=== PATIENT | male | born 1960 | race Two or more races ===

== ENCOUNTER 2023-05-17 20:08 | Inpatient (IN) | payer MEDICAID, OTHER ==
[~2023-05-17] VITALS: Ht 177.8 cm; Wt 97.1 kg
[2023-05-17 23:34] LABS: Basophils # (auto) 0 10 ^3/uL (0-0.2); Basophils % (auto) 0.2 % (0.0-2.0); Eosinophils # (auto) 0 10 ^3/uL (0-0.8); Eosinophils % (auto) 0.2 % (0.0-7.0); Hematocrit 46.8 % (41.0-53.0); Hemoglobin 15.4 g/dL (13.5-17.5); Lymphocytes # (auto) 1.6 10 ^3/uL (0.4-5.4); Lymphocytes % (auto) 11.4 % (10.0-50.0); Mean Corpuscular Hemoglobin 32.4 pg (28.0-32.0); Mean Corpuscular Hgb Conc. 32.9 g/dL (32.0-36.0); Mean Corpuscular Volume 98.4 fL (80.0-100.0); Monocytes # (auto) 0.5 10 ^3/uL (0-1.3); Monocytes % (auto) 3.7 % (0.0-12.0); Neutrophils # (auto) 12.1 10 ^3/uL (1.6-8.6); Neutrophils % (auto) 84.5 % (37.0-80.0); Red Blood Cells 4.75 10^6/uL (4.5-5.90); Red Cell Distribution Width 13.4 % (11.8-14.3); White Blood Cell 14.4 10^3/uL (4.4-10.8)
[2023-05-17 23:42] LABS: Alanine Aminotransferase 24 U/L (7-40); Albumin 4.7 g/dL (3.2-4.8); Alkaline Phosphatase 81 U/L (46-116); Anion Gap 7 (5-15); Aspartate Aminotransferase 25 U/L (13-40); BUN/Creatinine Ratio 11.2 (10.0-20.0); Bilirubin, Total 0.4 mg/dL (0.2-1.0); Blood Urea Nitrogen 13 mg/dL (9-23); Carbon Dioxide 25 mmol/L (20-30); Chloride 105 mmol/L (98-107); Glucose 151 mg/dL (74-106); Potassium 4.7 mmol/L (3.5-5.1); Sodium 137 mmol/L (136-145); Total Protein 7.6 g/dL (5.7-8.2)
[2023-05-18] VITALS (7 sets, daily range): BP systolic 125–139; BP diastolic 83–92; PULSE 55–71; RESP 14–20; TEMP 97.7–98.5; O2SAT 93–97
[2023-05-18 01:49] LABS: Blood Alcohol < 3.0 mg/dL (<10)
[2023-05-18] MEDS: PIPERACILLIN-TAZOB 3.375GM 100 ML IV ONE (02:52)
[2023-05-18] MEDS ORDERED: ONDANSETRON HCL 4 MG/2 ML VIAL IV PRN (03:00)
[2023-05-18] MEDS ORDERED: MORPHINE SULFATE INJ 2 MG/ml SYRG IV PRN ×2 (03:00→04:45)
[2023-05-18] MEDS ORDERED: ACETAMINOPHEN 325 MG TAB PO PRN (03:00)
[2023-05-18] MEDS ORDERED: DOCUSATE SOD 100 MG CAP PO PRN (03:00)
[2023-05-18] MEDS: SODIUM CHLORIDE 0.9% 1,000 ML IV SCH (03:14)
[2023-05-18 03:29] LABS: Urine Bacteria NONE SEEN /hpf (None Seen); Urine Blood 1+ /uL (Negative); Urine Clarity Clear (Clear); Urine Color Yellow (Yellow); Urine Mucus FEW (None Seen); Urine Protein, UAD TRACE (Negative); Urine Specific Gravity 1.026 (1.001-1.035); Urine Urobilinogen Normal (Negative); Urine WBC 3 /hpf (0 - 3); Urine pH 5.5 (5.0-8.0)
[2023-05-18 03:32] LABS: Amphetamine Screen, Urine Neg (NEGATIVE); Barbiturate Scree,Urine Neg (NEGATIVE); Benzodiazephine Screen, Urine Neg (NEGATIVE)
[2023-05-18 03:33] LABS: Cannabinoid Screen, Urine Neg (NEGATIVE); Cocaine Screen, Urine Neg (NEGATIVE); Opiate Scree,Urine Neg (NEGATIVE); Phencyclidine Screen, Urine Neg (NEGATIVE)
[2023-05-18 03:35] LABS: Alanine Aminotransferase 24 U/L (7-40); Albumin 4.6 g/dL (3.2-4.8); Alkaline Phosphatase 78 U/L (46-116); Anion Gap 6 (5-15); Aspartate Aminotransferase 24 U/L (13-40); BUN/Creatinine Ratio 10.2 (10.0-20.0); Blood Urea Nitrogen 11 mg/dL (9-23); Calcium 9.7 mg/dL (8.7-10.4); Carbon Dioxide 25 mmol/L (20-30); Chloride 107 mmol/L (98-107); Glucose 91 mg/dL (74-106); Potassium 4.4 mmol/L (3.5-5.1); Sodium 138 mmol/L (136-145)
[2023-05-18 03:36] LABS: Bilirubin, Total 0.5 mg/dL (0.2-1.0); Total Protein 7.5 g/dL (5.7-8.2)
[2023-05-18 03:37] LABS: Basophils # (auto) 0.1 10 ^3/uL (0-0.2); Basophils % (auto) 0.9 % (0.0-2.0); Eosinophils # (auto) 0.2 10 ^3/uL (0-0.8); Eosinophils % (auto) 1.7 % (0.0-7.0); Hematocrit 42.7 % (41.0-53.0); Hemoglobin 14.1 g/dL (13.5-17.5); Lymphocytes # (auto) 2.4 10 ^3/uL (0.4-5.4); Lymphocytes % (auto) 20.2 % (10.0-50.0); Mean Corpuscular Hemoglobin 32.7 pg (28.0-32.0); Mean Corpuscular Hgb Conc. 32.9 g/dL (32.0-36.0); Mean Corpuscular Volume 99.4 fL (80.0-100.0); Monocytes # (auto) 0.7 10 ^3/uL (0-1.3); Monocytes % (auto) 6.1 % (0.0-12.0); Neutrophils # (auto) 8.3 10 ^3/uL (1.6-8.6); Neutrophils % (auto) 71.1 % (37.0-80.0); Nucleated Red Blood Cells % 0.1 %; Red Cell Distribution Width 13.5 % (11.8-14.3); White Blood Cell 11.7 10^3/uL (4.4-10.8)
[2023-05-18] MEDS ORDERED: NITROGLYCERIN 0.4 MG SL TAB SL PRN (04:45)
[2023-05-18] MEDS: PIPERACILLIN-TAZOB 3.375GM 100 ML IV SCH (12:08)
[2023-05-18] MEDS: PNEUMOCOCCAL VACC POLYS 25 MCG/0.5 ML VIAL IM ONE (13:15)
[2023-05-18] MEDS: HYDROcodone-ACET 5/325MG TAB PO PRN (13:59)
[2023-05-18] MEDS: INFLUENZA QUAD 2023-2024 0.5 ML SYRG IM ONE (15:15)
[2023-05-19] VITALS (7 sets, daily range): BP systolic 116–145; BP diastolic 78–89; PULSE 58–74; RESP 14–19; TEMP 97.3–98.9; O2SAT 92–96
[2023-05-19 06:50] LABS: Basophils # (auto) 0 10 ^3/uL (0-0.2); Basophils % (auto) 0.4 % (0.0-2.0); Eosinophils # (auto) 0.2 10 ^3/uL (0-0.8); Eosinophils % (auto) 2.5 % (0.0-7.0); Hematocrit 40.7 % (41.0-53.0); Hemoglobin 13.9 g/dL (13.5-17.5); Lymphocytes # (auto) 3.3 10 ^3/uL (0.4-5.4); Lymphocytes % (auto) 40.3 % (10.0-50.0); Mean Corpuscular Hemoglobin 33.4 pg (28.0-32.0); Mean Corpuscular Hgb Conc. 34.1 g/dL (32.0-36.0); Mean Corpuscular Volume 97.8 fL (80.0-100.0); Monocytes # (auto) 0.8 10 ^3/uL (0-1.3); Monocytes % (auto) 9.8 % (0.0-12.0); Neutrophils # (auto) 3.9 10 ^3/uL (1.6-8.6); Red Blood Cells 4.16 10^6/uL (4.5-5.90); Red Cell Distribution Width 13.1 % (11.8-14.3); White Blood Cell 8.3 10^3/uL (4.4-10.8)
[2023-05-19 07:05] LABS: Alanine Aminotransferase 22 U/L (7-40); Albumin 3.9 g/dL (3.2-4.8); Alkaline Phosphatase 63 U/L (46-116); Anion Gap 6 (5-15); Aspartate Aminotransferase 16 U/L (13-40); BUN/Creatinine Ratio 12.1 (10.0-20.0); Blood Urea Nitrogen 13 mg/dL (9-23); Calcium 8.9 mg/dL (8.7-10.4); Carbon Dioxide 26 mmol/L (20-30); Chloride 107 mmol/L (98-107); Potassium 4.2 mmol/L (3.5-5.1); Sodium 139 mmol/L (136-145)
[2023-05-19 07:06] LABS: Bilirubin, Total 0.5 mg/dL (0.2-1.0); Total Protein 6.4 g/dL (5.7-8.2)
[2023-05-19 07:08] LABS: Glucose 87 mg/dL (74-106)
[2023-05-20 05:00] VITALS: BP 121/84; PULSE 64; RESP 16; TEMP 98.3; O2SAT 94
[2023-05-20 08:00] VITALS: PULSE 60; RESP 16; O2SAT 96
[2023-05-20 08:39] VITALS: BP 118/77; PULSE 68; RESP 18; TEMP 98.9; O2SAT 100
[2023-05-20 09:17] LABS: Hepatitis B Surface Antibody Negative (Negative)
[2023-05-20 09:27] LABS: Hepatitis B Surface Antigen Negative (Negative)
[2023-05-20 09:48] LABS: Hepatitis B Core IgM Negative; Hepatitis C Antibody Negative (Negative)
[2023-05-20] MEDS ORDERED: AUG875T PO (11:21)
[2023-05-20] MEDS ORDERED: DOCU-265 PO (11:23)
[2023-05-20] MEDS ORDERED: HYDR-4902 PO (11:23)
[2023-05-20 12:51] VITALS: BP 126/75; PULSE 61; RESP 17; TEMP 98.1; O2SAT 95
[2023-05-22] MEDS ORDERED: ASPI1TAB20 PO (10:57)
[2023-05-22] MEDS ORDERED: ATO40T PO (10:57)
== END 2023-05-20 15:55 | disposition home or self-care (01) | DRG 501 ==
LOC: EDBD 20:08 → ER 20:08 → TELE 05-18 04:45 → TELE-EAST 05-18 13:02 → TELE-WESTW 05-19 18:13
PROVIDERS: ADMIT Nurse Practitioner Family; ATTEND Internal Medicine
DX: N45.2 Orchitis (principal); I69.351 Hemiplegia and hemiparesis following cerebral infarction affecting right dominant side; I69.398 Other sequelae of cerebral infarction; N43.3 Hydrocele, unspecified; R73.9 Hyperglycemia, unspecified; R20.2 Paresthesia of skin
CPT/HCPCS: 36415; 80053; 80307; 80320; 81001; 83605; 83735; 84484; 85025; 86705; 86706; 86803; 87040; 87340; 93005; 96365; G0378; J2543

== ENCOUNTER 2023-08-24 18:20 | Emergency (ER) | payer MEDICAID ==
[~2023-08-24] VITALS: Ht 177.8 cm; Wt 91.0 kg
[~2023-08-24 18:20] MED LIST: ASPI1TAB20 PO; ATOR-507 PO; AUG875T PO; DOCU-265 PO; HYDR-4902 PO
[2023-08-24 19:35] VITALS: PULSE 74; RESP 12; O2SAT 95
[2023-08-24 19:37] LABS: Basophils # (auto) 0 10 ^3/uL (0-0.2); Basophils % (auto) 0.3 % (0.0-2.0); Eosinophils # (auto) 0.1 10 ^3/uL (0-0.8); Eosinophils % (auto) 1.4 % (0.0-7.0); Hematocrit 46.3 % (41.0-53.0); Hemoglobin 15.7 g/dL (13.5-17.5); Lymphocytes # (auto) 3.7 10 ^3/uL (0.4-5.4); Lymphocytes % (auto) 43.5 % (10.0-50.0); Mean Corpuscular Hemoglobin 33.6 pg (28.0-32.0); Mean Corpuscular Hgb Conc. 33.9 g/dL (32.0-36.0); Mean Corpuscular Volume 99.3 fL (80.0-100.0); Monocytes # (auto) 0.7 10 ^3/uL (0-1.3); Monocytes % (auto) 8.3 % (0.0-12.0); Neutrophils # (auto) 3.9 10 ^3/uL (1.6-8.6); Neutrophils % (auto) 46.5 % (37.0-80.0); Nucleated Red Blood Cells % 0.6 %; Red Blood Cells 4.67 10^6/uL (4.5-5.90); Red Cell Distribution Width 14.5 % (11.8-14.3); White Blood Cell 8.5 10^3/uL (4.4-10.8)
[2023-08-24 19:46] LABS: Chloride 107 mmol/L (98-107); Potassium 4.3 mmol/L (3.5-5.1); Sodium 140 mmol/L (136-145)
[2023-08-24 19:47] LABS: Anion Gap 10 (5-15); Carbon Dioxide 23 mmol/L (20-30)
[2023-08-24 19:48] LABS: Calcium 9.5 mg/dL (8.7-10.4)
[2023-08-24 19:52] LABS: BUN/Creatinine Ratio 14.5 (10.0-20.0); Blood Urea Nitrogen 16 mg/dL (9-23); Glucose 88 mg/dL (74-106)
[2023-08-24 22:00] VITALS: BP 118/87; PULSE 62; RESP 15; TEMP 97.5; O2SAT 96
== END 2023-08-24 22:28 | disposition home or self-care (01) ==
LOC: ER 18:20 → EDBD 18:20 → ER 22:28
DX: F10.129 Alcohol abuse with intoxication, unspecified (principal); Z79.899 Other long term (current) drug therapy; Y90.0 Blood alcohol level of less than 20 mg/100 ml
CPT/HCPCS: 36415; 70450; 71045; 72125; 80048; 80320; 85025

== ENCOUNTER 2024-10-19 12:10 | Inpatient (IN) | payer MEDICAID ==
[~2024-10-19] VITALS: Ht 177.8 cm; Wt 95.0 kg
--- NOTE | 2024-10-19 12:31 | ED.PDOC ---
HPI Comments 63 y.o male with PMHx of MT x2, CVA x2, thyroid disease, HLD, HTN, DM, and neuropathy, presents to the ED via EMS for a chief complaint of substernal chest pain associated with SOB and nausea that started this morning. EMS reports initially, patient's roommate reported that patient has been complaining of this pain for the past week but has not been to the hospital for this episode recently. Patient reports pain is constant, states "feels like my heart is going to explode", is non radiating and rating a 10/10 on the pain scale. EMS gave 324mg ASA and 0.4mg NTG x 2 en route but patient had no relief and remains a 10/10. Patient admits to heavy ETOH use and has been drinking today at home. He denies any vomiting, diarrhea or leg swelling. Time Seen by MD: 12:13 Reviewed Notes: Nurses Notes, Biofuels Production Associate Notes, Medications, Allergies Allergies: Coded Allergies: NO KNOWN ALLERGIES (Unverified , 05/17/23) Home Meds Active Scripts Atorvastatin Calcium (Lipitor) 40 Mg Tab, 1 TAB PO QPM, #90 TAB 1 Refill Prov:CHAYO RICHARDS MD 05/22/23 Aspirin (Aspir-81) 81 Mg Tab, 1 TAB PO DAILY, #30 TAB 5 Refills Prov:CHAYO RICHARDS MD 05/22/23 Docusate Sodium (Docusate Sodium) 100 Mg Cap, 100 MG PO BIDPRN PRN, #60 CAP Prov:CHAYO RICHARDS MD 05/20/23 Hydrocodone-Acetaminophen (Hydrocodone Bitartrate/AC 5-325 mg) 1 Tab Tab, 1 TAB PO Q4HP PRN, #20 TAB Prov:CHAYO RICHARDS MD 05/20/23 Amoxicillin & Pot Clavulanate (AUGMENTIN TABLET) 875 Mg Tb, 875 MG PO BID, #20 TAB Prov:CHAYO RICHARDS MD 05/20/23 Information Source: Patient, Emergency Med Personnel Mode of Arrival: EMS Severity: Moderate Timing: Hours Duration: Since onset Prehospital treatment: 12 Lead EKG, ASA (324mg ), Bread Distributor, NTG (0.4mg x 2 ) Location: Substernal Radiation: No Radiation Quality: Sharp Onset: At Rest Cardiac Risk Factors: Hyperlipidemia, HTN, Diabetes PE Risk Factors: None History of: Similar pain in past, MT Modifying Factors: Nothing Associated Signs and Symptoms: SOB, N/V (nausea with no vomiting ) Past Medical History PAST MEDICAL HISTORY: CVA (2), High Lipids, HTN, [place] (2), Thyroid Past Medical History (Other): neuropathy Surgical History: Denies all surgeries Family History Family History: Unknown Social History Smoker: Non-Smoker Alcohol: Heavy Drugs: Denies Drug Use Lives In: Home Constitutional: denies: chills, diaphoresis, fatigue, fever, malaise, sweats, weakness, others EENTM: denies: blurred vision, double vision, ear bleeding, ear discharge, ear drainage, ear pain, ear ringing, eye pain, eye redness, hearing loss, mouth pain, mouth swelling, nasal discharge, nose bleeding, nose congestion, nose pain, photophobia, tearing, throat pain, throat swelling, voice changes, others Respiratory: reports: SOB at rest, shortness of breath, SOB with excertion; denies: cough, hemoptysis, orthopnea, stridor, wheezing, others Cardiovascular: reports: chest pain; denies: dizzy spells, diaphoresis, Dyspnea on exertion, edema, irregular heart beat, left arm pain, lightheadedness, palpitations, PND, syncope, others Gastrointestinal: reports: nausea; denies: abdomen distended, abdominal pain, blood streaked bowels, constipated, diarrhea, dysphagia, difficulty swallowing, hematemesis, melena, poor appetite, poor fluid intake, rectal bleeding, rectal pain, vomiting, others Genitourinary: denies: burning, dysuria, flank pain, frequency, hematuria, incontinence, penile discharge, penile sore, pain, testicle pain, testicle swelling, urgency, others Neurological: denies: dizziness, fainting, headache, left sided numbness, left sided weakness, numbness, paresthesia, pre-existing deficit, right sided numbness, right sided weakness, seizure, speech problems, tingling, tremors, weakness, others Musculoskeletal: denies: back pain, gout, joint pain, joint swelling, muscle pain, muscle stiffness, neck pain, others Integumetry: denies: bruises, change in color, change in hair/nails, dryness, laceration, lesions, lumps, rash, wounds, others Allergic/Immunocompromised: denies: Difficulty Healing, Frequent Infections, Hives, Itching, others Hematologic/Lymphatic: denies: anemia, blood clots, easy bleeding, easy bruising, swollen glands, others Endocrine: denies: excessive hunger, excessive sweating, excessive thirst, excessive urination, flushing, intolerance to cold, intolerance to heat, unexplained weight gain, unexplained weight loss, others Psychiatric: denies: anxiety, bipolar disorder, depression, hopeless, panic disorder, schizophrenia, sleepless, suicidal, others All Other Systems: Reviewed and Negative Physical Exam General Appearance: Moderate Distress HEENT: Normal ENT Inspection, Pharynx Normal, TMs Normal Neck: Full Range of Motion, Non-Tender, Normal, Normal Inspection Respiratory: Chest Non-Tender, Lungs Clear, No Accessory Muscle Use, No Respiratory Distress, Normal Breath Sounds Cardiovascular: No Edema, No JVD, No Murmur, No Gallop, Normal Peripheral Pulses, Regular Rate/Rhythm Breast Exam: Deferred Gastrointestinal: No Organomegaly, Non Tender, No Pulsatile Mass, Normal Bowel Sounds, Soft Genitalia: Deferred Pelvic: Deferred Rectal: Deferred Extremities: No calf tenderness, Normal capillary refill, Normal inspection, Normal range of motion, Non-tender, No pedal edema Musculoskeletal : Apperance: Normal Neurologic: Alert, french weaver II-XII nml as Tested, Motor Weakness, Normal Affect, Normal Mood, No Sensory Deficits Cerebellar Function: Normal Reflexes: Normal Skin: Dry, Normal Color, Warm Lymphatic: No Adenopathy EKG EKG : Pulse Rate (adult): 83 Cardiac Rhythm: NSR Block: RBBB Was a procedure done? Was a procedure done?: No CP Differential Dx Differential Diagnosis: Digoxin Toxicity, Electrolyte Disorder Differential Diagnosis: Angina, Chest Wall Pain, Costochondritis, Myocardial Infarction, Pericarditis, Pneumonia X-Ray, Labs, Meds, VS Vital Signs Date Time Temp Pulse Resp B/P (MAP) Pulse Ox O2 Delivery O2 Flow Rate FiO2 10/19/24 13:14 66 10/19/24 12:42 68 21 97 Nasal Cannula* 2 28 10/19/24 12:42 98.5 68 21 129/90 (103) 97 98.5 10/19/24 12:31 83 10/19/24 12:26 86 10/19/24 12:15 98.5 70 19 133/86 (102) 94 98.5 10/19/24 12:11 83 Lab Test 10/19/24 13:31 10/19/24 12:28 Range/Units Troponin I High Sensitivity Pending < 3 L </=54 ng/L White Blood Count 8.0 4.4-10.8 10^3/uL Red Blood Count 4.21 L 4.5-5.90 10^6/uL Hemoglobin 14.6 13.5-17.5 g/dL Hematocrit 41.2 41.0-53.0 % Mean Corpuscular Volume 98.0 80.0-100.0 fL Mean Corpuscular Hemoglobin 34.6 H 28.0-32.0 pg Mean Corpuscular Hemoglobin Concent 35.3 32.0-36.0 g/dL Red Cell Distribution Width 14.6 H 11.8-14.3 % Platelet Count 256 140-450 10^3/uL Mean Platelet Volume 8.3 6.9-10.8 fL Neutrophils (%) (Auto) 62.7 37.0-80.0 % Lymphocytes (%) (Auto) 30.5 10.0-50.0 % Monocytes (%) (Auto) 5.9 0.0-12.0 % Eosinophils (%) (Auto) 0.4 0.0-7.0 % Basophils (%) (Auto) 0.5 0.0-2.0 % Neutrophils # (Auto) 5.0 1.6-8.6 10 ^3/uL Lymphocytes # (Auto) 2.4 0.4-5.4 10 ^3/uL Monocytes # (Auto) 0.5 0-1.3 10 ^3/uL Eosinophils # (Auto) 0 0-0.8 10 ^3/uL Basophils # (Auto) 0 0-0.2 10 ^3/uL Nucleated Red Blood Cells 0.1 % Sodium Level 141 136-145 mmol/L Potassium Level 3.6 3.5-5.1 mmol/L Chloride Level 104 98-107 mmol/L Carbon Dioxide Level 21 20-31 mmol/L Anion Gap 16 H 5-15 Blood Urea Nitrogen 16 9-23 mg/dL Creatinine 0.85 0.700-1.30 mg/dL Glomerular Filtration Rate Calc 98 >90 mL/min BUN/Creatinine Ratio 18.8 10.0-20.0 Serum Glucose 103 74-106 mg/dL Calcium Level 9.7 8.7-10.4 mg/dL Plasma/Serum Blood Alcohol 94.9 H <10 mg/dL EXAM: XY CHEST PORTABLE IMPRESSION: No acute cardiopulmonary disease. Hep-Lock was established. The patient's alcohol level is 94.9 The troponin level is negative The CBC and chemistry panel are within normal limits. The patient is still having persistent chest pain The patient is being admitted at this time Images Reviewed?: Images reviewed and evaluated by me Time of 1ST Reevaluation: 12:22 Reevaluation 1ST: Unchanged Patient Education/Counseling: Diagnosis, Treatment, Prognosis Family Education/Counseling: No Family Present SEPSIS Sepsis Screen Physician Orders Electrocardigram (10/19/24 13:15) Electrocardigram (10/19/24 15:15) Chest Portable (10/19/24 12:20) Heplock Iv (10/19/24 12:20) Bread Distributor (10/19/24 12:20) Blood Pressure (10/19/24 12:20) Pulse Oximetry (10/19/24 12:20) Urinalysis (10/19/24 12:20) Drug Screen (10/19/24 12:20) Troponin-I Hs (10/19/24 13:20) Troponin-I Hs (10/19/24 15:20) Vital Signs Date Time Temp Pulse Resp B/P (MAP) Pulse Ox O2 Delivery O2 Flow Rate FiO2 10/19/24 13:14 66 10/19/24 12:42 68 21 97 Nasal Cannula* 2 28 10/19/24 12:42 98.5 68 21 129/90 (103) 97 98.5 10/19/24 12:31 83 10/19/24 12:26 86 10/19/24 12:15 98.5 70 19 133/86 (102) 94 98.5 10/19/24 12:11 83 Laboratory Tests Test 10/19/24 12:28 White Blood Count 8.0 10^3/uL (4.4-10.8) Departure 1 Departure Time of Disposition: 14:03 Impression: Primary Impression: Acute chest pain Additional Impression: Alcohol intoxication Qualified Codes: F10.920 - Alcohol use, unspecified with intoxication, uncomplicated Disposition: 09 ADMITTED INPATIENT Admit to: Tele Condition: Fair Critical Care Note Critical Care Time?: No Stability Stability form required: Yes Unstable for transfer: Telemetry monitoring (Telemetry monitoring required), ED Physician Assesment (Clinical assesment) Heart Score Heart Score: Heart Score Response (Comments) Value History Moderate Suspicious 1 EKG Repolarization Disturb 1 Age 45-64 1 Risk Factors >3 or Hx ASHD 2 Troponin Normal limit 0 Total 5 I personally scribed for ANDREA CHIU MD ([email or web address]) on 10/19/24 at 12:31. Electronically submitted by Keiko Connelly (Conductor). I personally scribed for ANDREA CHIU MD ([email or web address]) on 10/19/24 at 13:34. Electronically submitted by Keiko Connelly (Conductor). ANDREA CHIU MD Oct 19, 2024 12:31
[2024-10-19 12:42] VITALS: PULSE 68; RESP 21; O2SAT 97
[2024-10-19 12:53] LABS: Hematocrit 41.2 % (41.0-53.0); Hemoglobin 14.6 g/dL (13.5-17.5); Mean Corpuscular Hemoglobin 34.6 pg (28.0-32.0); Mean Corpuscular Volume 98.0 fL (80.0-100.0); Nucleated Red Blood Cells % 0.1 %
[2024-10-19 13:00] LABS: Chloride 104 mmol/L (98-107); Potassium 3.6 mmol/L (3.5-5.1); Sodium 141 mmol/L (136-145)
[2024-10-19 13:01] LABS: Anion Gap 16 (5-15); Carbon Dioxide 21 mmol/L (20-31)
[2024-10-19 13:02] LABS: Calcium 9.7 mg/dL (8.7-10.4)
--- NOTE | 2024-10-19 13:02 | DVH ---
EXAM: XY CHEST PORTABLE Indication: CP Technique: Single frontal view of the chest was obtained Comparison: XY CHEST PORTABLE on DOS: 08/24/23 FINDINGS: Lines and Tubes: None Lungs: No focal consolidation. Pleura: No effusion. No pneumothorax. Cardiomediastinal contours: Unremarkable Bones: No acute osseous abnormality. IMPRESSION: No acute cardiopulmonary disease.
[2024-10-19 13:06] LABS: BUN/Creatinine Ratio 18.8 (10.0-20.0); Blood Urea Nitrogen 16 mg/dL (9-23); Glucose 103 mg/dL (74-106)
--- NOTE | 2024-10-19 13:08 | ECG ---
[facility] Test Date: 2024-10-19 Test Time: 12:11:45 Pat Name: LOCO HERNÁNDEZ Department: ER Room: [address] [place] [address] Gender: M Talent Assistant: ALINA : 1960 Requested By: ANDREA CHIU Order Number: [id number] Reading MD: Mehrdad Pillai Measurements Intervals [place] Rate: 83 P: 37 PA: 167 QRS: 74 QRSD: 148 T: -15 QT: 419 QTc: 493 Interpretive Statements Sinus rhythm Right bundle branch block Electronically Signed On 10-19-2024 19:37:25 PDT by Mehrdad Pillai Please click the below link to view image of tracing.
[2024-10-19 14:35] LABS: Urine Protein, UAD 1+ (Negative)
[2024-10-19 15:04] LABS: Amphetamine Screen, Urine Neg (NEGATIVE); Barbiturate Scree,Urine Neg (NEGATIVE); Benzodiazephine Screen, Urine Neg (NEGATIVE); Cannabinoid Screen, Urine Neg (NEGATIVE); Cocaine Screen, Urine Neg (NEGATIVE); Opiate Scree,Urine Neg (NEGATIVE); Phencyclidine Screen, Urine Neg (NEGATIVE)
[2024-10-19] MEDS ORDERED: ONDANSETRON HCL 4 MG/2 ML VIAL IV PRN (15:30)
[2024-10-19] MEDS ORDERED: DOCUSATE SOD 100 MG CAP PO PRN (15:30)
--- NOTE | 2024-10-19 16:11 | DVHHP2 ---
History of Present Illness Reason for Visit: Acute chest pain History of Present Illness The patient is a 63-year-old male morbidly obese with past medical history of CVA, hypertension, neuropathy, hyperlipidemia, thyroid disease, and [place] who presented to [facility] ED with complaint of chest pain. Patient reports symptoms progressively get worse with substernal chest pain, associated with nausea, shortness of breaths, getting worse that prompted this visit. Patient was seen and evaluated in the ED, laboratory data shows WBC 8.0, platelets 256, sodium 141, potassium 3.6, BUN 16, creatinine 0.85, glucose 103, calcium 9.7, troponin < 3, alcohol level 94.9, blood pressure 137/94, heart rate 66, temperature 97.6 F, O2 saturation 97% on oxygen. Chest x-ray show no acute cardiopulmonary disease. Please see medication orders section in the computer. On my assessment, patient denied chest pain at this moment, no headache, no dizziness, no diaphoresis, no shortness of breath, no nausea, no vomiting, no fever, no chills. Patient was admitted for further evaluation and medical ma nagement. Past Medical History CVA (2), High Lipids, HTN, [place] (2), Thyroid, Neuropathy Past Surgical History Denies all surgeries Family History Reviewed, noncontributory to the management of this case. Past Social History The patient lives at home, denies smoking, alcohol or illicit drugs abuse. Review of Systems Constitutional: No: Fever, Chills, Sweats, Weakness, Malaise, Other Eyes: No: Pain, Vision change, Conjunctivae inflammation, Eyelid inflammation, Other, Redness ENT: No: Ear pain, Ear discharge, Nose pain, Nose discharge, Nose congestion, Mouth pain, Mouth swelling, Throat pain, Throat swelling, Other Respiratory: Shortness of breath, SOB with excertion, Other (SOB at rest); No: Cough, Dry, Wheezing, Hemoptysis, Pleuritic Pain, Sputum, Wheezing Cardiovascular: Chest Pain; No: Palpitations, Orthopnea, Paroxysmal Noc. Dyspnea, Edema, Lt Headedness, Other Gastrointestinal: Nausea; No: Vomiting, Abdominal Pain, Diarrhea, Constipation, Melena, Hematochezia, Other Genitourinary: No Dysuria, No Frequency, No Incontinence, No Hematuria, No Retention, No Other Musculoskeletal: No: other, neck pain, shoulder pain, arm pain, back pain, hand pain, leg pain, foot pain Skin: No: Rash, Lesions, Jaundice, Bruising, Other Neurological: No: Weakness, Numbness, Incoordination, Change in speech, Confusion, Seizures, Other Allergies: Coded Allergies: NO KNOWN ALLERGIES (Unverified , 05/17/23) Medications Current Medications Medications Dose Ordered Sig/Maria G Route Start Time Stop Time Status Last Admin Dose Admin Aspirin 81 mg DAILY PO 10/20/24 10:00 UNV Atorvastatin Calcium 40 mg HS PO 10/19/24 22:00 UNV Thiamine HCl 100 mg DAILY PO 10/20/24 10:00 UNV Folic Acid 1 mg DAILY PO 10/20/24 10:00 UNV Hydralazine HCl 10 mg Q6HP PRN IV 10/19/24 15:30 UNV Sodium Chloride 10 ml Q8HR IV 10/19/24 22:00 UNV Acetaminophen/ Hydrocodone Bitart 1 tab Q4HP PRN PO 10/19/24 15:30 UNV Ondansetron HCl 4 mg Q4HP PRN IV 10/19/24 15:30 UNV Docusate Sodium 100 mg BIDPRN PRN PO 10/19/24 15:30 UNV Multivitamins 1 tab DAILY PO 10/20/24 10:00 UNV Acetaminophen 650 mg Q6HP PRN PO 10/19/24 15:30 UNV Exam Vital Signs Vital Signs Date Time Temp Pulse Resp B/P (MAP) Pulse Ox O2 Delivery O2 Flow Rate FiO2 10/19/24 14:00 97.3 66 21 137/94 (108) 97 97.3 10/19/24 12:42 Nasal Cannula* 2 28 General Appearance: Alert, Oriented X3, Cooperative, No acute distress HEENT: Atraumatic, PERRLA, EOMI, Mucous membr. moist/pink Respiratory: Normal air movement Cardiovascular: Regular rate, Normal S1, Normal S2, No murmurs Abdominal: Normal bowel sounds, Soft, No tenderness, No hepatospenomegaly, No masses Extremities: No clubbing, No cyanosis, No edema, Normal pulses, No tende rness/swelling Skin: No rashes, No breakdown, No significant lesion Neuro: Normal gait, Normal speech, Strength at 5/5 X4 ext, Normal tone, Sensation intact, Cranial nerves 3-12 NL, Reflexes 2+ Psych/Mental Status: Mental status NL, Mood NL Labs/Xrays Labs Test 10/19/24 14:22 10/19/24 13:31 10/19/24 12:28 Range/Units Urine Color Yellow Yellow Urine Clarity Turbid H Clear Urine pH 6.0 5.0-9.0 Urine Specific [place] 1.030 1.001-1.035 Urine Protein 1+ H Negative Urine Ketones 1+ H Negative Urine Blood 1+ H Negative /uL Urine Nitrite Negative Negative Urine Bilirubin Negative Negative Urine Urobilinogen Normal Negative mg/dL Urine Leukocyte Esterase Negative Negative /uL Urine RBC 2 0 - 3 /hpf Urine Microscopic WBC 1 0-3 /HPF Urine Squamous Epithelial Cells Few <5 /hpf Urine Bacteria None seen None Seen /hpf Urine Mucus Few None Seen Urine Glucose Normal Normal mg/dL Urine Opiates Screen Neg NEGATIVE Urine Fentanyl Screen Neg NEGATIVE Urine Barbiturates Screen Neg NEGATIVE Urine Phencyclidine Screen Neg NEGATIVE Urine Amphetamines Screen Neg NEGATIVE Urine Benzodiazepines Screen Neg NEGATIVE Urine Cocaine Screen Neg NEGATIVE Urine Cannabinoids Screen Neg NEGATIVE Troponin I High Sensitivity < 3 L </=54 ng/L White Blood Count 8.0 4.4-10.8 10^3/uL Red Blood Count 4.21 L 4.5-5.90 10^6/uL Hemoglobin 14.6 13.5-17.5 g/dL Hematocrit 41.2 41.0-53.0 % Mean Corpuscular Volume 98.0 80.0-100.0 fL Mean Corpuscular Hemoglobin 34.6 H 28.0-32.0 pg Mean Corpuscular Hemoglobin Concent 35.3 32.0-36.0 g/dL Red Cell Distribution Width 14.6 H 11.8-14.3 % Platelet Count 256 140-450 10^3/uL Mean Platelet Volume 8.3 6.9-10.8 fL Neutrophils (%) (Auto) 62.7 37.0-80.0 % Lymphocytes (%) (Auto) 30.5 10.0-50.0 % Monocytes (%) (Auto) 5.9 0.0-12.0 % Eosinophils (%) (Auto) 0.4 0.0-7.0 % Basophils (%) (Auto) 0.5 0.0-2.0 % Neutrophils # (Auto) 5.0 1.6-8.6 10 ^3/uL Lymphocytes # (Auto) 2.4 0.4-5.4 10 ^3/uL Monocytes # (Auto) 0.5 0-1.3 10 ^3/uL Eosinophils # (Auto) 0 0-0.8 10 ^3/uL Basophils # (Auto) 0 0-0.2 10 ^3/uL Nucleated Red Blood Cells 0.1 % Sodium Level 141 136-145 mmol/L Potassium Level 3.6 3.5-5.1 mmol/L Chloride Level 104 98-107 mmol/L Carbon Dioxide Level 21 20-31 mmol/L Anion Gap 16 H 5-15 Blood Urea Nitrogen 16 9-23 mg/dL Creatinine 0.85 0.700-1.30 mg/dL Glomerular Filtration Rate Calc 98 >90 mL/min BUN/Creatinine Ratio 18.8 10.0-20.0 Serum Glucose 103 74-106 mg/dL Calcium Level 9.7 8.7-10.4 mg/dL Plasma/Serum Blood Alcohol 94.9 H <10 mg/dL PATIENT: LOCO HERNÁNDEZ MACCT: [id number] UNIT: [id number] : 1960 LOC: ER ROOM / BED: / AGE / SEX: 63 / M ADM STATUS: REG ER SERVICE 1220 ORDERING PHYSICIAN: ANDREA CHIU MD PROCEDURE(s): CXRP - CHEST PORTABLE REASON: CP ORDER NUMBER(s): [id number], ACCESSION NUMBER(s): [id number] EXAM: XY CHEST PORTABLE Indication: CP Technique: Single frontal view of the chest was obtained Comparison: XY CHEST PORTABLE on DOS: 08/24/23 FINDINGS: Lines and Tubes: None Lungs: No focal consolidation. Pleura: No effusion. No pneumothorax. Cardiomediastinal contours: Unremarkable Bones: No acute osseous abnormality. IMPRESSION: No acute cardiopulmonary disease. SEPSIS Sepsis Screen Date sepsis recognized/suspect: Oct 19, 2024 Time Sepsis recognized/suspect: 1242 Recent Procedure: No On Antibiotic Therapy: No Respiratory Rate >20: Yes Heart Rate >90: No Temp<36 C (96.8 F) or >38.3 C: No SBP <90 or MAP <65 mmHG: No New Acute Mental Status Change: Yes Is the patient on CPAP, BIPAP,: No Physician Orders Electrocardigram (10/19/24 13:15) Electrocardigram (10/19/24 15:15) Chest Portable (10/19/24 12:20) Heplock Iv (10/19/24 12:20) Truck Service Technician (10/19/24 12:20) Blood Pressure (10/19/24 12:20) Pulse Oximetry (10/19/24 12:20) Aspirin Tablet (10/20/24 10:00) Atorvastatin (Lipitor) (10/19/24 22:00) Thiamine Tab (10/20/24 10:00) Folic Acid Tablet (10/20/24 10:00) Hydralazine Injection (Apresoline Inject (10/19/24 15:30) Allergies (10/19/24 15:21) Code Status (10/19/24 15:21) Sodium Chloride Lock (Saline Lock Ns) (10/19/24 22:00) Oxygen Per Hour (10/19/24 15:21) Hydrocodone-Acet 5/325mg Tab ([place] 5/32 (10/19/24 15:30) Ondansetron Hcl (Zofran) (10/19/24 15:30) Docusate Sodium Capsule (Colace Capsule) (10/19/24 15:30) Multiple Vitamin Tablet (Mvi Tab) (10/20/24 10:00) Complete Blood Count (10/20/24 04:00) Comprehensive Metabolic Panel (10/20/24 04:00) Cardiac Diet-2gna,Lofat,Lochol (10/19/24 Dinner) Condition: Serious (10/19/24 15:21) Acetaminophen Tablet (Tylenol Tablet) (10/19/24 15:30) Bedrest With Bathroom Privileg (10/19/24 15:21) Sequential Compression Device (10/19/24 ) Admit (10/19/24 16:10) Nitroglycerin Sublingual (Ntrostat Subli (10/19/24 16:15) Morphine Sulfate Injection (10/19/24 16:15) Stat Ekg For Chest Pain (10/19/24 16:10) Notify Md Of Changes From Base (10/19/24 16:10) Events Administrative Assistant For 24 Hours (10/19/24 16:10) Emergency Dysrhythmia Protocol (10/19/24 16:10) Rhythm Strips Once Every Shift (10/19/24 16:10) Oxygen By Nasal Cannula (10/19/24 16:10) Vital Signs Date Time Temp Pulse Resp B/P (MAP) Pulse Ox O2 Delivery O2 Flow Rate FiO2 10/19/24 14:00 97.3 66 21 137/94 (108) 97 97.3 10/19/24 13:14 66 10/19/24 12:42 68 21 97 Nasal Cannula* 2 28 10/19/24 12:42 98.5 68 21 129/90 (103) 97 98.5 10/19/24 12:31 83 10/19/24 12:26 86 10/19/24 12:15 98.5 70 19 133/86 (102) 94 98.5 10/19/24 12:11 83 Laboratory Tests Test 10/19/24 12:28 White Blood Count 8.0 10^3/uL (4.4-10.8) Assessment/Plan Assessment/Plan Acute chest pain Alcohol intoxication Alcohol use, unspecified with intoxication, uncomplicated Plan 1. Admit to telemetry unit 2. Breathing treatment 3. Pain control management 4. Management of fluids and electrolytes 5. Consultation for hospitalist 6. Diagnostic tests chest x-ray 7. DVT prophylaxis-on aspirin 8. Repeat labs CBC, CMP in a.m. 9. Continue with current medical management 10. Treatment plan discussed with patient and RN. Patient verbalized understanding. Plan discussed with: Patient, Other (RN) My Orders Orders - LUCY ZALDIVAR DNP Procedure Category Date Status Time Aspirin Tablet PHA 10/20/24 Logged 10:00 Atorvastatin (Lipitor) PHA 10/19/24 Logged 22:00 Thiamine Tab PHA 10/20/24 Logged 10:00 Folic Acid Tablet PHA 10/20/24 Logged 10:00 Hydralazine Injection PHA 10/19/24 Logged (Apresoline Inject 15:30 Allergies [place] 10/19/24 In Process 15:21 Code Status CODE 10/19/24 Transmitted 15:21 Sodium Chloride Lock PHA 10/19/24 Logged (Saline Lock Ns) 22:00 Oxygen Per Hour RT 10/19/24 Transmitted 15:21 Hydrocodone-Acet PHA 10/19/24 Logged 5/325mg Tab ([place] 15:30 Ondansetron Hcl PHA 10/19/24 Logged (Zofran) 15:30 Docusate Sodium PHA 10/19/24 Logged Capsule (Colace 15:30 Multiple Vitamin [facility] 10/20/24 Logged Tablet (Mvi Tab) 10:00 Complete Blood Count LAB 10/20/24 Verified 04:00 Comprehensive LAB 10/20/24 Verified Metabolic Panel 04:00 Cardiac DIET 10/19/24 Transmitted Diet-2gna,Lofat,Lochol Dinner Condition: Serious [place] 10/19/24 In Process 15:21 Acetaminophen Tablet [facility] 10/19/24 Logged (Tylenol Tablet) 15:30 Bedrest With Bathroom [place] 10/19/24 In Process Privileg 15:21 Sequential [facility] 10/19/24 In Process Compression Device Admit ADMIT 10/19/24 Verified 16:10 Nitroglycerin [facility] 10/19/24 Verified Sublingual (Ntrostat 16:15 Morphine Sulfate [facility] 10/19/24 Verified Injection 16:15 Stat Ekg For Chest [facility] 10/19/24 Verified Pain 16:10 Notify Md Of Changes [facility] 10/19/24 Verified From Base 16:10 Events Administrative Assistant For [facility] 10/19/24 Verified 24 Hours 16:10 Emergency Dysrhythmia [facility] 10/19/24 Verified Protocol 16:10 Rhythm Strips Once [facility] 10/19/24 Verified Every Shift 16:10 Oxygen By Nasal 10/19/24 Verified Cannula 16:10 Problem List: (1) Acute chest pain (2) Alcohol intoxication (3) Alcohol use, unspecified with intoxication, uncomplicated Date of Service: Oct 19, 2024 Billing Provider: LUCY ZALDIVAR DNP Common Visit Codes: 76861-[id number] INP/OBS CARE (HIGH) LUCY ZALDIVAR DNP Oct 19, 2024 16:11
[2024-10-19] MEDS ORDERED: MORPHINE SULFATE INJ 2 MG/ml SYRG IV PRN (16:15)
[2024-10-19] MEDS ORDERED: NITROGLYCERIN 0.4 MG SL TAB SL PRN (16:15)
[2024-10-19] MEDS: HYDROcodone-ACET 5/325MG TAB PO PRN (18:58)
[2024-10-19 19:30] VITALS: PULSE 80; RESP 14; O2SAT 97
[2024-10-19 21:34] VITALS: BP 134/106; PULSE 96; PULSE 98; RESP 16; RESP 20; TEMP 97.8; O2SAT 98; O2SAT 99
[2024-10-19] MEDS: ATORVASTATIN 20 MG TAB PO SCH (21:53)
[2024-10-19] MEDS: ACETAMINOPHEN 325 MG TAB PO PRN (21:54)
[2024-10-19] MEDS: SODIUM CHLOR 0.9% PF (SALINE LOCK) 10ML VIAL/SYR IV SCH (22:11)
[2024-10-20] VITALS (9 sets, daily range): BP systolic 107–157; BP diastolic 76–107; PULSE 62–84; RESP 14–18; TEMP 96.1–98.5; O2SAT 94–99
[2024-10-20] MEDS: hydrALAZINE HCL 20 MG/ML VL IV PRN (06:23)
[2024-10-20 06:51] LABS: Hematocrit 42.8 % (41.0-53.0); Hemoglobin 15.1 g/dL (13.5-17.5); Mean Corpuscular Hemoglobin 34.8 pg (28.0-32.0); Mean Corpuscular Volume 98.6 fL (80.0-100.0); Nucleated Red Blood Cells % 0.2 %
[2024-10-20 07:06] LABS: Albumin 4.1 g/dL (3.2-4.8); Alkaline Phosphatase 84 U/L (46-116); Anion Gap 11 (5-15); Calcium 9.6 mg/dL (8.7-10.4); Carbon Dioxide 23 mmol/L (20-31); Chloride 99 mmol/L (98-107); Total Protein 6.7 g/dL (5.7-8.2)
[2024-10-20 07:08] LABS: BUN/Creatinine Ratio 12.0 (10.0-20.0)
[2024-10-20 07:12] LABS: Alanine Aminotransferase 24 U/L (7-40); Bilirubin, Total 1.4 mg/dL (0.2-1.0); Blood Urea Nitrogen 9 mg/dL (9-23); Glucose 113 mg/dL (74-106); Potassium 3.8 mmol/L (3.5-5.1); Sodium 133 mmol/L (136-145)
[2024-10-20] MEDS: MULTIPLE VITAMIN TAB PO SCH (08:47)
[2024-10-20] MEDS: FOLIC ACID 1 MG TAB PO SCH (08:47)
[2024-10-20] MEDS: THIAMINE HCL 100 MG TAB PO SCH (08:48)
--- NOTE | 2024-10-20 08:51 | ECG ---
[facility] Test Date: 2024-10-19 Test Time: 13:14:50 Pat Name: LOCO HERNÁNDEZ Department: ER Room: 0251T Gender: M Reverse Unit Operator: LICHA : 1960 Requested By: ANDREA CHIU Order Number: [id number] Reading MD: Mehrdad Pillai Measurements Intervals [place] Rate: 66 P: 36 CT: 177 QRS: 4 QRSD: 148 T: 4 QT: 451 QTc: 473 Interpretive Statements Sinus rhythm Right bundle branch block Electronically Signed On 10-26-2024 21:59:41 PDT by Mehrdad Pillai Please click the below link to view image of tracing.
--- NOTE | 2024-10-20 12:36 | DVHPN2 ---
Reviewed: Care Plan, H&P, Labs, Medications, Previous Orders, Radiology Changes from previous H/P or p: No Changes Eyes: No Pain, No Vision change, No Conjunctivae inflammation, No Eyelid inflammation, No Other, No Redness ENT: No Ear pain, No Ear discharge, No Nose pain, No Nose discharge, No Nose congestion, No Mouth pain, No Mouth swelling, No Throat pain, No Throat swelling, No Other Cardiovascular: Chest Pain; No Palpitations, No Orthopnea, No Paroxysmal Noc. Dyspnea, No Edema, No Lt Headedness, No Other Respiratory: No Cough, No Dry; Shortness of breath, SOB with excertion; No Wheezing, No Hemoptysis, No Pleuritic Pain, No Sputum; Other (SOB at rest) Gastrointestinal: Nausea; No Vomiting, No Abdominal Pain, No Diarrhea, No Constipation, No Melena, No Hematochezia, No Other Genitourinary: No Dysuria, No Frequency, No Incontinence, No Hematuria, No Retention, No Other Musculoskeletal: No other, No neck pain, No shoulder pain, No arm pain, No back pain, No hand pain, No leg pain, No foot pain Skin: No Rash, No Lesions, No Jaundice, No Bruising, No Other Objective Vitals Vital Signs Date Time Temp Pulse Resp B/P (MAP) Pulse Ox O2 Delivery O2 Flow Rate FiO2 10/20/24 09:00 98.1 74 14 147/95 (112) 95 98.1 10/20/24 08:15 Nasal Cannula* 2 28 Intake/Output Intake and Output 10/20/24 06:59 Intake Total 800 ml Output Total 2 ml Balance 798 ml Intake Oral 800 ml Output Urine Total 2 ml Medications Current Medications Medications Dose Ordered Sig/Maria G Route Start Time Stop Time Status Last Admin Dose Admin Aspirin 81 mg DAILY PO 10/20/24 10:00 10/20/24 08:47 81 MG Atorvastatin Calcium 40 mg HS PO 10/19/24 22:00 10/19/24 21:53 40 MG Thiamine HCl 100 mg DAILY PO 10/20/24 10:00 10/20/24 08:48 100 MG Folic Acid 1 mg DAILY PO 10/20/24 10:00 10/20/24 08:47 1 MG Hydralazine HCl 10 mg Q6HP PRN IV 10/19/24 15:30 10/20/24 06:23 10 MG Sodium Chloride 10 ml Q8HR IV 10/19/24 22:00 10/20/24 06:24 10 ML Acetaminophen/ Hydrocodone Bitart 1 tab Q4HP PRN PO 10/19/24 15:30 10/20/24 06:24 1 TAB Ondansetron HCl 4 mg Q4HP PRN IV 10/19/24 15:30 Docusate Sodium 100 mg BIDPRN PRN PO 10/19/24 15:30 Multivitamins 1 tab DAILY PO 10/20/24 10:00 10/20/24 08:47 1 TAB Acetaminophen 650 mg Q6HP PRN PO 10/19/24 15:30 10/19/24 21:54 650 MG Nitroglycerin 0.4 mg Q5MINP PRN SL 10/19/24 16:15 Morphine Sulfate 2 mg Q30M PRN IV 10/19/24 16:15 Laboratory Results Laboratory Tests 10/20/24 06:24 Chemistry Test 10/20/24 06:24 Albumin 4.1 g/dL (3.2-4.8) Calcium Level 9.6 mg/dL (8.7-10.4) Total Protein 6.7 g/dL (5.7-8.2) LFT Test 10/20/24 06:24 Alanine Aminotransferase (ALT) 24 U/L (7-40) Alkaline Phosphatase 84 U/L (46-116) Aspartate Amino Transferase (AST) 41 U/L (13-40) H Total Bilirubin 1.4 mg/dL (0.2-1.0) H Urinalysis Test 10/19/24 14:22 Urine Color Yellow (Yellow) Urine Clarity Turbid (Clear) H Urine pH 6.0 (5.0-9.0) Urine Specific [place] 1.030 (1.001-1.035) Urine Protein 1+ (Negative) H Urine Ketones 1+ (Negative) H Urine Blood 1+ /uL (Negative) H Urine Nitrite Negative (Negative) Urine Bilirubin Negative (Negative) Urine Urobilinogen Normal mg/dL (Negative) Urine Leukocyte Esterase Negative /uL (Negative) Urine RBC 2 /hpf (0 - 3) Urine Microscopic WBC 1 /HPF (0-3) Urine Squamous Epithelial Cells Few /hpf (<5) Urine Bacteria None seen /hpf (None Seen) Urine Mucus Few (None Seen) Urine Glucose Normal mg/dL (Normal) Labs and/or images reviewed: Labs reviewed by me, Image(s) reviewed by me Assessment/Plan Assessment/Plan Acute chest pain rule out coronary artery disease: Treatment per ACS protocol, cardiology consult for Dr. Mandujano Hypotension Hypercholesterolemia History of [place] Hypothyroidism History of CVA x2 Acute alcoholic intoxication blood alcohol 95: Thiamine folic acid Acute dehydration: IV fluids Chronic alcohol abuse: Counseling Time spent 70 minutes Advanced care planning time 20 minutes Patient is full code Plan discussed with: Patient Date of Service: Oct 20, 2024 Billing Provider: JAY CERVANTES MD Common Visit Codes: [id number] CARE 30-74 MIN JAY CERVANTES MD Oct 20, 2024 12:35
--- NOTE | 2024-10-20 16:37 | DVHCONRES ---
Date Seen: Oct 20, 2024 Resident Creating Document: QUINN GASTON RESDIENT History of Present Illness This is a 63-year-old male with past medical history of hypertension, dyslipidemia, CVA came to the hospital due to chest pain. Per patient, he has intermittent substernal chest pain since 1 week, heaviness in nature, 10/15, which worsened with physical activity. He also reports of heavy drinking within the last week, and upon drinking the pain relieves. He also reports nausea, vomiting and shortness of breaths. He denies cough, fever, or any recent sick contact. PMHx: hypertension, dyslipidemia, CVA Social history: Heavy alcohol use disorder Home medication: Lisinopril, atorvastatin and nifedipine Allergic history: No known allergy Patient seen and examined at the bedside. Patient is still complaining of chest pain. Family History: Cardiovascular disease G8 FATHER Hypercholesterolemia G8 FATHER Hypertension G8 FATHER Allergies: Coded Allergies: NO KNOWN ALLERGIES (Unverified , 05/17/23) Home Meds Active Scripts Atorvastatin Calcium (Lipitor) 40 Mg Tab, 1 TAB PO QPM, #90 TAB 1 Refill Prov:CHAYO RICHARDS MD 05/22/23 Aspirin (Aspir-81) 81 Mg Tab, 1 TAB PO DAILY, #30 TAB 5 Refills Prov:CHAYO RICHARDS MD 05/22/23 Docusate Sodium (Docusate Sodium) 100 Mg Cap, 100 MG PO BIDPRN PRN, #60 CAP Prov:CHAYO RICHARDS MD 05/20/23 Hydrocodone-Acetaminophen (Hydrocodone Bitartrate/AC 5-325 mg) 1 Tab Tab, 1 TAB PO Q4HP PRN, #20 TAB Prov:CHAYO RICHARDS MD 05/20/23 Amoxicillin & Pot Clavulanate (AUGMENTIN TABLET) 875 Mg Tb, 875 MG PO BID, #20 TAB Prov:CHAYO RICHARDS MD 05/20/23 Current Medications Current Medications Medications (Trade) Dose Ordered Sig/Maria G Route PRN Reason Start Time Stop Time Status Last Admin Aspirin 81 mg DAILY PO 10/20/24 10:00 10/20/24 08:47 Atorvastatin Calcium (Lipitor) 40 mg HS PO 10/19/24 22:00 10/19/24 21:53 Thiamine HCl 100 mg DAILY PO 10/20/24 10:00 10/20/24 08:48 Folic Acid 1 mg DAILY PO 10/20/24 10:00 10/20/24 08:47 Sodium Chloride (Saline Lock Ns) 10 ml Q8HR IV 10/19/24 22:00 10/20/24 14:00 Multivitamins (Mvi Tab) 1 tab DAILY PO 10/20/24 10:00 10/20/24 08:47 Nitroglycerin (Ntrostat Sublingual) 0.4 mg Q5MINP PRN SL FOR CHEST PAIN 10/19/24 16:15 Morphine Sulfate 2 mg Q30M PRN IV FOR CHEST PAIN 10/19/24 16:15 Vital Signs Vital Signs Date Time Temp Pulse Resp B/P (MAP) Pulse Ox O2 Delivery O2 Flow Rate FiO2 10/20/24 12:56 97.0 62 18 157/103 (121) 94 97.0 10/20/24 08:15 Nasal Cannula* 2 28 Physical Exam General Appearance: Alert, Oriented X3, Cooperative, No acute distress HEENT: Atraumatic, PERRLA, EOMI, Mucous membrane moist/pink Respiratory: Clear to auscultation, Normal air movement Cardiovascular: Regular rate, Normal S1, Normal S2, No murmurs, no chest wall tenderness Abdominal: Normal bowel sounds, Soft, No tenderness, No hepatospenomegaly, No masses Extremities: No clubbing, No cyanosis, No edema, Normal pulses, No tenderness/swelling Skin: No rashes, No breakdown, No significant lesion Neuro: Normal gait, Normal speech, Strength at 5/5 X4 ext, Normal tone, Sensation intact, Cranial nerves 3-12 NL, Reflexes 2+ Psych/Mental Status: Mental status NL, Mood NL Labs/Diagnostic Data Labs Test 10/20/24 06:24 10/19/24 14:22 10/19/24 13:31 10/19/24 12:28 Range/Units White Blood Count 10.8 # 4.4-10.8 10^3/uL Red Blood Count 4.34 L 4.5-5.90 10^6/uL Hemoglobin 15.1 13.5-17.5 g/dL Hematocrit 42.8 41.0-53.0 % Mean Corpuscular Volume 98.6 80.0-100.0 fL Mean Corpuscular Hemoglobin 34.8 H 28.0-32.0 pg Mean Corpuscular Hemoglobin Concent 35.3 32.0-36.0 g/dL Red Cell Distribution Width 14.3 11.8-14.3 % Platelet Count 243 140-450 10^3/uL Mean Platelet Volume 8.6 6.9-10.8 fL Neutrophils (%) (Auto) 75.4 37.0-80.0 % Lymphocytes (%) (Auto) 17.2 10.0-50.0 % Monocytes (%) (Auto) 6.3 0.0-12.0 % Eosinophils (%) (Auto) 0.5 0.0-7.0 % Basophils (%) (Auto) 0.6 0.0-2.0 % Neutrophils # (Auto) 8.2 1.6-8.6 10 ^3/uL Lymphocytes # (Auto) 1.9 0.4-5.4 10 ^3/uL Monocytes # (Auto) 0.7 0-1.3 10 ^3/uL Eosinophils # (Auto) 0.1 0-0.8 10 ^3/uL Basophils # (Auto) 0.1 0-0.2 10 ^3/uL Nucleated Red Blood Cells 0.2 % Sodium Level 133 #L 136-145 mmol/L Potassium Level 3.8 3.5-5.1 mmol/L Chloride Level 99 98-107 mmol/L Carbon Dioxide Level 23 20-31 mmol/L Anion Gap 11 5-15 Blood Urea Nitrogen 9 9-23 mg/dL Creatinine 0.75 0.700-1.30 mg/dL Glomerular Filtration Rate Calc 102 >90 mL/min BUN/Creatinine Ratio 12.0 10.0-20.0 Serum Glucose 113 H 74-106 mg/dL Calcium Level 9.6 8.7-10.4 mg/dL Total Bilirubin 1.4 H 0.2-1.0 mg/dL Aspartate Amino Transferase (AST) 41 H 13-40 U/L Alanine Aminotransferase (ALT) 24 7-40 U/L Alkaline Phosphatase 84 46-116 U/L Total Protein 6.7 5.7-8.2 g/dL Albumin 4.1 3.2-4.8 g/dL Urine Color Yellow Yellow Urine Clarity Turbid H Clear Urine pH 6.0 5.0-9.0 Urine Specific [place] 1.030 1.001-1.035 Urine Protein 1+ H Negative Urine Ketones 1+ H Negative Urine Blood 1+ H Negative /uL Urine Nitrite Negative Negative Urine Bilirubin Negative Negative Urine Urobilinogen Normal Negative mg/dL Urine Leukocyte Esterase Negative Negative /uL Urine RBC 2 0 - 3 /hpf Urine Microscopic WBC 1 0-3 /HPF Urine Squamous Epithelial Cells Few <5 /hpf Urine Bacteria None seen None Seen /hpf Urine Mucus Few None Seen Urine Glucose Normal Normal mg/dL Urine Opiates Screen Neg NEGATIVE Urine Fentanyl Screen Neg NEGATIVE Urine Barbiturates Screen Neg NEGATIVE Urine Phencyclidine Screen Neg NEGATIVE Urine Amphetamines Screen Neg NEGATIVE Urine Benzodiazepines Screen Neg NEGATIVE Urine Cocaine Screen Neg NEGATIVE Urine Cannabinoids Screen Neg NEGATIVE Troponin I High Sensitivity < 3 L </=54 ng/L Plasma/Serum Blood Alcohol 94.9 H <10 mg/dL Test 10/18/24 23:24 Range/Units Assessment Chest pain, non-cardiac Alcohol use disorder Hypertension History of CVA Dyslipidemia * EKGs shows normal sinus rhythm with a significant ST or T-wave changes * Serial trop I is within normal limits * Chest x-ray shows no intrathoracic abnormalities Plan/recommendation (Case discussed with Dr. Mandujano) * Aspirin and atorvastatin * Check echocardiogram * In context of normal Echo, no further cardiology work up is required at the moment. * Rest of plan per primary team * Follow up with the patient Thank you for giving us the opportunity to take care of your patient. Please call back if you have any question/concern. Plan discussed with: Patient, Other (RN) QUINN GASTON Oct 20, 2024 16:37
[2024-10-20] MEDS: ENOXAPARIN SOD 40 MG/0.4 ML SYRINGE SC ONE (17:32)
--- NOTE | 2024-10-20 22:45 | DVHINCON2 ---
Date of service: Oct 20, 2024 Referring Physician Raffi Reason for Consultation Chest pain History of Present Illness This is a 63-year-old male with past medical history of hypertension, dyslipidemia, CVA who presented to the ED with complaints of chest pain. Per patient, he has intermittent substernal chest pain since 1 week, heaviness in nature, 10/15, which worsened with physical activity. He also reports of heavy drinking within the last week, and upon drinking the pain relieves. He also reports nausea, vomiting and shortness of breaths. He denies cough, fever, or any recent sick contact. EKGs shows normal sinus rhythm with a significant ST or T-wave changes. Serial trop I is within normal limits. Chest x-ray shows no intrathoracic abnormalities. Patient was admitted to the hospital. I am asked to consult on this patient. Past Medical History hypertension, dyslipidemia, CVA Family History: Cardiovascular disease G8 FATHER Hypercholesterolemia G8 FATHER Hypertension G8 FATHER Allergies: Coded Allergies: NO KNOWN ALLERGIES (Unverified , 05/17/23) Home Meds Active Scripts Atorvastatin Calcium (Lipitor) 40 Mg Tab, 1 TAB PO QPM, #90 TAB 1 Refill Prov:CHAYO RICHARDS MD 05/22/23 Aspirin (Aspir-81) 81 Mg Tab, 1 TAB PO DAILY, #30 TAB 5 Refills Prov:CHAYO RICHARDS MD 05/22/23 Docusate Sodium (Docusate Sodium) 100 Mg Cap, 100 MG PO BIDPRN PRN, #60 CAP Prov:CHAYO RICHARDS MD 05/20/23 Hydrocodone-Acetaminophen (Hydrocodone Bitartrate/AC 5-325 mg) 1 Tab Tab, 1 TAB PO Q4HP PRN, #20 TAB Prov:CHAYO RICHARDS MD 05/20/23 Amoxicillin & Pot Clavulanate (AUGMENTIN TABLET) 875 Mg Tb, 875 MG PO BID, #20 TAB Prov:CHAYO RICHARDS MD 05/20/23 Current Medications Current Medications Medications (Trade) Dose Ordered Sig/Maria G Route PRN Reason Start Time Stop Time Status Last Admin Aspirin 81 mg DAILY PO 10/20/24 10:00 10/20/24 08:47 Thiamine HCl 100 mg DAILY PO 10/20/24 10:00 10/20/24 08:48 Folic Acid 1 mg DAILY PO 10/20/24 10:00 10/20/24 08:47 Multivitamins (Mvi Tab) 1 tab DAILY PO 10/20/24 10:00 10/20/24 08:47 Enoxaparin Sodium (Lovenox) 40 mg DAILY SC 10/21/24 10:00 Review of Systems Constitutional: No: Fever, Chills, Sweats, Weakness, Malaise, Other Eyes: No: Pain, Vision change, Conjunctivae inflammation, Eyelid inflammation, Other, Redness ENT: No: Ear pain, Ear discharge, Nose pain, Nose discharge, Nose congestion, Mouth pain, Mouth swelling, Throat pain, Throat swelling, Other Respiratory: Shortness of breath, SOB with excertion, Other (SOB at rest); No: Cough, Dry, Wheezing, Hemoptysis, Pleuritic Pain, Sputum, Wheezing Cardiovascular: Chest Pain; No: Palpitations, Orthopnea, Paroxysmal Noc. Dyspnea, Edema, Lt Headedness, Other Gastrointestinal: Nausea; No: Vomiting, Abdominal Pain, Diarrhea, Constipation, Melena, Hematochezia, Other Genitourinary: No Dysuria, No Frequency, No Incontinence, No Hematuria, No Retention, No Other Musculoskeletal: No: other, neck pain, shoulder pain, arm pain, back pain, hand pain, leg pain, foot pain Skin: No: Rash, Lesions, Jaundice, Bruising, Other Neurological: No: Weakness, Numbness, Incoordination, Change in speech, Confusion, Seizures, Other Vital Signs Vital Signs Date Time Temp Pulse Resp B/P (MAP) Pulse Ox O2 Delivery O2 Flow Rate FiO2 10/20/24 21:00 96.1 80 16 151/100 (117) 96 96.1 10/20/24 08:15 Nasal Cannula* 2 28 Physical Exam GENERAL: Alert and oriented x 3. No acute distress. EYES: PERRL, EOMI. Anicteric. HENT: Moist mucous membranes. LUNGS: Clear to auscultation bilaterally. CARDIOVASCULAR: Regular rate and rhythm. ABDOMEN: Soft, non-tender and non-distended. EXTREMITIES: No edema. NEUROLOGIC: No focal neurological deficits. SKIN: Warm, dry. Labs/Diagnostic Data Labs Test 10/20/24 06:24 10/19/24 14:22 10/19/24 13:31 10/19/24 12:28 Range/Units White Blood Count 10.8 # 4.4-10.8 10^3/uL Red Blood Count 4.34 L 4.5-5.90 10^6/uL Hemoglobin 15.1 13.5-17.5 g/dL Hematocrit 42.8 41.0-53.0 % Mean Corpuscular Volume 98.6 80.0-100.0 fL Mean Corpuscular Hemoglobin 34.8 H 28.0-32.0 pg Mean Corpuscular Hemoglobin Concent 35.3 32.0-36.0 g/dL Red Cell Distribution Width 14.3 11.8-14.3 % Platelet Count 243 140-450 10^3/uL Mean Platelet Volume 8.6 6.9-10.8 fL Neutrophils (%) (Auto) 75.4 37.0-80.0 % Lymphocytes (%) (Auto) 17.2 10.0-50.0 % Monocytes (%) (Auto) 6.3 0.0-12.0 % Eosinophils (%) (Auto) 0.5 0.0-7.0 % Basophils (%) (Auto) 0.6 0.0-2.0 % Neutrophils # (Auto) 8.2 1.6-8.6 10 ^3/uL Lymphocytes # (Auto) 1.9 0.4-5.4 10 ^3/uL Monocytes # (Auto) 0.7 0-1.3 10 ^3/uL Eosinophils # (Auto) 0.1 0-0.8 10 ^3/uL Basophils # (Auto) 0.1 0-0.2 10 ^3/uL Nucleated Red Blood Cells 0.2 % Sodium Level 133 #L 136-145 mmol/L Potassium Level 3.8 3.5-5.1 mmol/L Chloride Level 99 98-107 mmol/L Carbon Dioxide Level 23 20-31 mmol/L Anion Gap 11 5-15 Blood Urea Nitrogen 9 9-23 mg/dL Creatinine 0.75 0.700-1.30 mg/dL Glomerular Filtration Rate Calc 102 >90 mL/min BUN/Creatinine Ratio 12.0 10.0-20.0 Serum Glucose 113 H 74-106 mg/dL Calcium Level 9.6 8.7-10.4 mg/dL Magnesium Level 2.0 1.6-2.6 mg/dL Total Bilirubin 1.4 H 0.2-1.0 mg/dL Aspartate Amino Transferase (AST) 41 H 13-40 U/L Alanine Aminotransferase (ALT) 24 7-40 U/L Alkaline Phosphatase 84 46-116 U/L Total Protein 6.7 5.7-8.2 g/dL Albumin 4.1 3.2-4.8 g/dL Thyroid Stimulating Hormone (TSH) 2.22 0.55-4.78 uIU/mL Urine Color Yellow Yellow Urine Clarity Turbid H Clear Urine pH 6.0 5.0-9.0 Urine Specific [place] 1.030 1.001-1.035 Urine Protein 1+ H Negative Urine Ketones 1+ H Negative Urine Blood 1+ H Negative /uL Urine Nitrite Negative Negative Urine Bilirubin Negative Negative Urine Urobilinogen Normal Negative mg/dL Urine Leukocyte Esterase Negative Negative /uL Urine RBC 2 0 - 3 /hpf Urine Microscopic WBC 1 0-3 /HPF Urine Squamous Epithelial Cells Few <5 /hpf Urine Bacteria None seen None Seen /hpf Urine Mucus Few None Seen Urine Glucose Normal Normal mg/dL Urine Opiates Screen Neg NEGATIVE Urine Fentanyl Screen Neg NEGATIVE Urine Barbiturates Screen Neg NEGATIVE Urine Phencyclidine Screen Neg NEGATIVE Urine Amphetamines Screen Neg NEGATIVE Urine Benzodiazepines Screen Neg NEGATIVE Urine Cocaine Screen Neg NEGATIVE Urine Cannabinoids Screen Neg NEGATIVE Troponin I High Sensitivity < 3 L </=54 ng/L Plasma/Serum Blood Alcohol 94.9 H <10 mg/dL Test 10/18/24 23:24 Range/Units Assessment Chest pain, non-cardiac. Alcohol use disorder. Hypertension. History of CVA. Dyslipidemia. Plan/Recommendation I agree with your ongoing assessment and care of plan. Patient has been seen by Maggi Starks, resident on my behalf. We have discussed the plan with the patient. Aspirin and atorvastatin. Check echocardiogram. In context of normal Echo, no further cardiology work up is required at the moment. Rest of plan per primary team. Follow up with the patient. Additional plan as per the hospital course. A total of 45 minutes was spent reviewing the patient record, examining the patient, making a diagnostic and therapeutic plan, discussing this plan with medical personnel, following up on diagnostic studies and following the patient for clinical stability excluding any and all procedures. At least 50% of this time was spent in direct, [id number] contact. Plan discussed with: Patient BRYAN DUTTA MD Oct 20, 2024 22:45
[2024-10-21] VITALS (9 sets, daily range): BP systolic 127–151; BP diastolic 86–99; PULSE 65–89; RESP 16–18; TEMP 36.8; O2SAT 94–98
[2024-10-21] MEDS: REGADENOSON 0.4 MG/5 ML SYRG IV ONE (08:43)
[2024-10-21] MEDS: ENOXAPARIN SOD 40 MG/0.4 ML SYRINGE SC SCH (09:01)
[2024-10-21 10:32] LABS: Hepatitis B Surface Antigen Negative (Negative)
[2024-10-21 10:39] LABS: Hepatitis C Antibody Negative (Negative)
--- NOTE | 2024-10-21 11:26 | DVHPN2 ---
Reviewed: Care Plan, H&P, Labs, Medications, Previous Orders, Radiology Changes from previous H/P or p: No Changes Eyes: No Pain, No Vision change, No Conjunctivae inflammation, No Eyelid inflammation, No Other, No Redness ENT: No Ear pain, No Ear discharge, No Nose pain, No Nose discharge, No Nose congestion, No Mouth pain, No Mouth swelling, No Throat pain, No Throat swelling, No Other Cardiovascular: Chest Pain; No Palpitations, No Orthopnea, No Paroxysmal Noc. Dyspnea, No Edema, No Lt Headedness, No Other Respiratory: No Cough, No Dry; Shortness of breath, SOB with excertion; No Wheezing, No Hemoptysis, No Pleuritic Pain, No Sputum; Other (SOB at rest) Gastrointestinal: Nausea; No Vomiting, No Abdominal Pain, No Diarrhea, No Constipation, No Melena, No Hematochezia, No Other Genitourinary: No Dysuria, No Frequency, No Incontinence, No Hematuria, No Retention, No Other Musculoskeletal: No other, No neck pain, No shoulder pain, No arm pain, No back pain, No hand pain, No leg pain, No foot pain Skin: No Rash, No Lesions, No Jaundice, No Bruising, No Other Objective Vitals Vital Signs Date Time Temp Pulse Resp B/P (MAP) Pulse Ox O2 Delivery O2 Flow Rate FiO2 10/21/24 09:00 98.3 65 16 145/91 (109) 95 98.3 10/21/24 08:30 Room Air* 0 21 Intake/Output Intake and Output 10/21/24 07:00 Intake Total 880 ml Balance 880 ml Intake Oral 880 ml # Voids 8 # Bowel Movements 2 Medications Current Medications Medications Dose Ordered Sig/Maria G Route Start Time Stop Time Status Last Admin Dose Admin Aspirin 81 mg DAILY PO 10/20/24 10:00 10/21/24 09:02 81 MG Atorvastatin Calcium 40 mg HS PO 10/19/24 22:00 10/20/24 21:26 40 MG Thiamine HCl 100 mg DAILY PO 10/20/24 10:00 10/21/24 09:02 100 MG Folic Acid 1 mg DAILY PO 10/20/24 10:00 10/21/24 09:02 1 MG Hydralazine HCl 10 mg Q6HP PRN IV 10/19/24 15:30 10/21/24 00:07 10 MG Sodium Chloride 10 ml Q8HR IV 10/19/24 22:00 10/21/24 05:47 10 ML Acetaminophen/ Hydrocodone Bitart 1 tab Q4HP PRN PO 10/19/24 15:30 10/20/24 16:19 1 TAB Ondansetron HCl 4 mg Q4HP PRN IV 10/19/24 15:30 Docusate Sodium 100 mg BIDPRN PRN PO 10/19/24 15:30 Multivitamins 1 tab DAILY PO 10/20/24 10:00 10/21/24 09:02 1 TAB Acetaminophen 650 mg Q6HP PRN PO 10/19/24 15:30 10/19/24 21:54 650 MG Nitroglycerin 0.4 mg Q5MINP PRN SL 10/19/24 16:15 Morphine Sulfate 2 mg Q30M PRN IV 10/19/24 16:15 Enoxaparin Sodium 40 mg DAILY SC 10/21/24 10:00 10/21/24 09:01 40 MG Laboratory Results Laboratory Tests 10/20/24 06:24 Urinalysis Test 10/19/24 14:22 Urine Color Yellow (Yellow) Urine Clarity Turbid (Clear) H Urine pH 6.0 (5.0-9.0) Urine Specific [place] 1.030 (1.001-1.035) Urine Protein 1+ (Negative) H Urine Ketones 1+ (Negative) H Urine Blood 1+ /uL (Negative) H Urine Nitrite Negative (Negative) Urine Bilirubin Negative (Negative) Urine Urobilinogen Normal mg/dL (Negative) Urine Leukocyte Esterase Negative /uL (Negative) Urine RBC 2 /hpf (0 - 3) Urine Microscopic WBC 1 /HPF (0-3) Urine Squamous Epithelial Cells Few /hpf (<5) Urine Bacteria None seen /hpf (None Seen) Urine Mucus Few (None Seen) Urine Glucose Normal mg/dL (Normal) Labs and/or images reviewed: Labs reviewed by me, Image(s) reviewed by me Assessment/Plan Assessment/Plan Acute chest pain rule out coronary artery disease: Treatment per ACS protocol, cardiology consult for Dr. Mandujano appreciated, echocardiogram pending Hypotension Hypercholesterolemia History of [place] Hypothyroidism History of CVA x2 Acute alcoholic intoxication blood alcohol 95: Thiamine folic acid Acute dehydration: IV fluids Chronic alcohol abuse: Counseling Time spent 50 minutes Advanced care planning time 20 minutes Patient is full code Plan discussed with: Patient My Orders Orders - JAY CERVANTES MD Procedure Category Date Status Time * Cardiology Consult CONS 10/20/24 Transmitted 12:36 Date of Service: Oct 21, 2024 Billing Provider: JAY CERVANTES MD Common Visit Codes: [id number] INP/OBS CARE(HIGH) JAY CERVANTES MD Oct 21, 2024 11:26
--- NOTE | 2024-10-21 11:30 | DVHDS2 ---
Discharge Summary Date of Admission Oct 19, 2024 at 16:10 Date of Discharge: Oct 21, 2024 Admitting Diagnosis Chest pain Wounds: None Labs/Diagnostic Data: Laboratory Results Test 10/20/24 06:24 10/19/24 14:22 10/19/24 13:31 10/19/24 12:28 White Blood Count 10.8 10^3/uL (4.4-10.8) Red Blood Count 4.34 10^6/uL (4.5-5.90) Hemoglobin 15.1 g/dL (13.5-17.5) Hematocrit 42.8 % (41.0-53.0) Mean Corpuscular Volume 98.6 fL (80.0-100.0) Mean Corpuscular Hemoglobin 34.8 pg (28.0-32.0) Mean Corpuscular Hemoglobin Concent 35.3 g/dL (32.0-36.0) Red Cell Distribution Width 14.3 % (11.8-14.3) Platelet Count 243 10^3/uL (140-450) Mean Platelet Volume 8.6 fL (6.9-10.8) Neutrophils (%) (Auto) 75.4 % (37.0-80.0) Lymphocytes (%) (Auto) 17.2 % (10.0-50.0) Monocytes (%) (Auto) 6.3 % (0.0-12.0) Eosinophils (%) (Auto) 0.5 % (0.0-7.0) Basophils (%) (Auto) 0.6 % (0.0-2.0) Neutrophils # (Auto) 8.2 10 ^3/uL (1.6-8.6) Lymphocytes # (Auto) 1.9 10 ^3/uL (0.4-5.4) Monocytes # (Auto) 0.7 10 ^3/uL (0-1.3) Eosinophils # (Auto) 0.1 10 ^3/uL (0-0.8) Basophils # (Auto) 0.1 10 ^3/uL (0-0.2) Nucleated Red Blood Cells 0.2 % Sodium Level 133 mmol/L (136-145) Potassium Level 3.8 mmol/L (3.5-5.1) Chloride Level 99 mmol/L (98-107) Carbon Dioxide Level 23 mmol/L (20-31) Anion Gap 11 (5-15) Blood Urea Nitrogen 9 mg/dL (9-23) Creatinine 0.75 mg/dL (0.700-1.30) Glomerular Filtration Rate Calc 102 mL/min (>90) BUN/Creatinine Ratio 12.0 (10.0-20.0) Serum Glucose 113 mg/dL (74-106) Calcium Level 9.6 mg/dL (8.7-10.4) Magnesium Level 2.0 mg/dL (1.6-2.6) Total Bilirubin 1.4 mg/dL (0.2-1.0) Aspartate Amino Transferase (AST) 41 U/L (13-40) Alanine Aminotransferase (ALT) 24 U/L (7-40) Alkaline Phosphatase 84 U/L (46-116) Total Protein 6.7 g/dL (5.7-8.2) Albumin 4.1 g/dL (3.2-4.8) Thyroid Stimulating Hormone (TSH) 2.22 uIU/mL (0.55-4.78) Urine Color Yellow (Yellow) Urine Clarity Turbid (Clear) Urine pH 6.0 (5.0-9.0) Urine Specific [place] 1.030 (1.001-1.035) Urine Protein 1+ (Negative) Urine Ketones 1+ (Negative) Urine Blood 1+ /uL (Negative) Urine Nitrite Negative (Negative) Urine Bilirubin Negative (Negative) Urine Urobilinogen Normal mg/dL (Negative) Urine Leukocyte Esterase Negative /uL (Negative) Urine RBC 2 /hpf (0 - 3) Urine Microscopic WBC 1 /HPF (0-3) Urine Squamous Epithelial Cells Few /hpf (<5) Urine Bacteria None seen /hpf (None Seen) Urine Mucus Few (None Seen) Urine Glucose Normal mg/dL (Normal) Urine Opiates Screen Neg (NEGATIVE) Urine Fentanyl Screen Neg (NEGATIVE) Urine Barbiturates Screen Neg (NEGATIVE) Urine Phencyclidine Screen Neg (NEGATIVE) Urine Amphetamines Screen Neg (NEGATIVE) Urine Benzodiazepines Screen Neg (NEGATIVE) Urine Cocaine Screen Neg (NEGATIVE) Urine Cannabinoids Screen Neg (NEGATIVE) Troponin I High Sensitivity < 3 ng/L (</=54) Plasma/Serum Blood Alcohol 94.9 mg/dL (<10) Test 10/18/24 23:24 Hepatitis B Surface Antigen Negative (Negative) Hepatitis C Antibody Negative (Negative) Other Laboratory Tests 10/20/24 06:24 Brief Hx & Hospital Course: 63-year-old male with a history of hypertension hypercholesterolemia hypothyroidism [place] stroke x2 came in for chest pain troponin negative x3. Seen by or first assist registered nurse Dr. Mandujano echocardiogram result pending advised no further cardiac workup. Patient was found to be in acute alcoholic intoxication with blood alcohol 95 treated with the thiamine folic acid IV fluids advised to quit alcohol. Patient being discharged home prescriptions for aspirin Lipitor and thiamine folic acid transmitted to pharmacy. Consults/Reason for consult Cardiology Operations or Procedures Echocardiogram Condition at Discharge: Fair Final Diagnosis/Problems List Acute chest pain rule out coronary artery disease: Treatment per ACS protocol, cardiology consult for Dr. Mandujano appreciated, echocardiogram pending Hypotension Hypercholesterolemia History of [place] Hypothyroidism History of CVA x2 Acute alcoholic intoxication blood alcohol 95: Thiamine folic acid Acute dehydration: IV fluids Chronic alcohol abuse: Counseling Discharge Disposition: Home Discharge Instruct/Medications Diet: Cardiac 2g Na,low cholest Activity: Light activity Follow Up/Referral: Follow up with your Dr Stop drinking alcoholic Use medications as prescribed Medications: Aspirin Lipitor Thiamine Folic acid Scheduled Amoxicillin & Pot Clavulanate (Augmentin Tablet), 875 MG PO BID Aspirin (Aspir-81), 1 TAB PO DAILY Atorvastatin Calcium (Lipitor), 1 TAB PO QPM Scheduled PRN Docusate Sodium (Docusate Sodium), 100 MG PO BIDPRN PRN Hydrocodone-Acetaminophen (Hydrocodone Bitartrate/AC 5-325 mg), 1 TAB PO Q4HP PRN 35 (Time taken for discharge summary 35 minutes) Discharge Statement: "Patient was advised to return to the ER or call 911 if any headaches, dizziness, shortness of breath, chest pain, abdominal pain, bleeding, fevers, or worsening of medical condition. Patient was counseled about treatment plan, medications, possible side effects, patientverbalized understanding. All questions were answered to the best of my ability. This discharge took greater then 30 minutes in planning, reviewing documentation, counseling the patient, and discussing with other team members." ASSESSMENT ASSESSMENT Hospital Course Improved Assessment Acute chest pain rule out coronary artery disease: Treatment per ACS protocol, cardiology consult for Dr. Mandujano appreciated, echocardiogram pending Hypotension Hypercholesterolemia History of [place] Hypothyroidism History of CVA x2 Acute alcoholic intoxication blood alcohol 95: Thiamine folic acid Acute dehydration: IV fluids Chronic alcohol abuse: Counseling Date of Service: Oct 21, 2024 Billing Provider: JAY CERVANTES MD Common Visit Codes: 33650-URV/OBS DISCH DAY >30min JAY CERVANTES MD Oct 21, 2024 11:30
[2024-10-21] MEDS ORDERED: ASPI-498 PO (11:32)
[2024-10-21] MEDS ORDERED: ATOR-507 PO (11:32)
[2024-10-21] MEDS ORDERED: FOLI-119 PO (11:32)
[2024-10-21] MEDS ORDERED: THIA100T13 PO (11:32)
--- NOTE | 2024-10-21 21:40 | DVHPN2 ---
Progress Note - Dictate Date Seen: Oct 21, 2024 Medical Necessity Reason Pt with a Central, PICC or Fol: No Subjective Patient was seen and evaluated in follow up. Patient is complaining of chest discomfort. Patient stable on room air. TSH is WNL. Echocardiogram is ordered/pending. Telemetry reviewed. vital signs Vital Sign Date Time Temp Pulse Resp B/P (MAP) Pulse Ox O2 Delivery O2 Flow Rate FiO2 10/21/24 13:00 98.3 89 18 140/98 (112) 98 98.3 10/21/24 08:30 Room Air* 0 21 Total Intake and Output 10/20/24 10/20/24 10/21/24 15:00 23:00 07:00 Intake Total 480 ml 400 ml Balance 480 ml 400 ml medications Current Medications Medications Dose Ordered Sig/Maria G Route Start Time Stop Time Status Last Admin Dose Admin Aspirin 81 mg DAILY PO 10/20/24 10:00 10/21/24 09:02 81 MG Atorvastatin Calcium 40 mg HS PO 10/19/24 22:00 10/20/24 21:26 40 MG Thiamine HCl 100 mg DAILY PO 10/20/24 10:00 10/21/24 09:02 100 MG Folic Acid 1 mg DAILY PO 10/20/24 10:00 10/21/24 09:02 1 MG Hydralazine HCl 10 mg Q6HP PRN IV 10/19/24 15:30 10/21/24 00:07 10 MG Sodium Chloride 10 ml Q8HR IV 10/19/24 22:00 10/21/24 13:59 10 ML Acetaminophen/ Hydrocodone Bitart 1 tab Q4HP PRN PO 10/19/24 15:30 10/20/24 16:19 1 TAB Ondansetron HCl 4 mg Q4HP PRN IV 10/19/24 15:30 Docusate Sodium 100 mg BIDPRN PRN PO 10/19/24 15:30 Multivitamins 1 tab DAILY PO 10/20/24 10:00 10/21/24 09:02 1 TAB Acetaminophen 650 mg Q6HP PRN PO 10/19/24 15:30 10/19/24 21:54 650 MG Nitroglycerin 0.4 mg Q5MINP PRN SL 10/19/24 16:15 Morphine Sulfate 2 mg Q30M PRN IV 10/19/24 16:15 Enoxaparin Sodium 40 mg DAILY SC 10/21/24 10:00 10/21/24 09:01 40 MG objective GENERAL: Alert and oriented x 3. No acute distress. EYES: PERRL, EOMI. Anicteric. HENT: Moist mucous membranes. LUNGS: Clear to auscultation bilaterally. CARDIOVASCULAR: Regular rate and rhythm. ABDOMEN: Soft, non-tender and non-distended. EXTREMITIES: No edema. NEUROLOGIC: No focal neurological deficits. SKIN: Warm, dry. laboratory and microbiology Laboratory Tests 10/20/24 06:24 Test 10/20/24 06:24 Range/Units Serum Glucose 113 H 74-106 mg/dL Problem List Chest pain, non-cardiac. Alcohol use disorder. Hypertension. History of CVA. Dyslipidemia. Assessment/Plan Continued all current supportive medical care. Morphine and [place] for pain management. Aspirin, Lipitor. DVT prophylactics. IV Hydralazine for SBP >150. Nitro SL. Additional plan as per the hospital course. Plan discussed with: Patient BRYAN DUTTA MD Oct 21, 2024 17:34
[2024-10-22] VITALS (8 sets, daily range): BP systolic 127–147; BP diastolic 87–99; PULSE 62–90; RESP 18–22; TEMP 97–99.2; O2SAT 94–97
--- NOTE | 2024-10-22 17:41 | DVHSR ---
APPROVED REPORT EXAM: Two-dimensional and M-mode echocardiogram with Doppler and color Doppler. Blood Pressure: 127/87 mmHg INDICATION Chest Pain RISK FACTORS Obesity: Height: 5'10, Weight: 209 DIMENSIONS LVDd4.3 (3.8-5.7cm)LA (2D)4.3 (1.9-4.0cm)Aortic Root4.0 (2.0-3.7cm) LVDs2.9 (2.5-4.0cm)LA (MM) (1.9-4.0cm)Aortic Cusp Exc1.9 (1.5-2.0cm) EF (%) 55.0 (55-70%)Rt. Atrium3.2 (1.9-4.0cm)Asc. Aorta4.2 cm IVSd1.2 (0.7-1.1cm)RV (D) (1.8-2.4cm) PWd1.0 (0.7-1.1cm) Mitral Valve MitralMitral Stenosis E wave0.50m/sMV Mean GR.mmHg A wave1.02m/sMV Peak GR.mmHg E/A ratio0.52D MVAcm2 DECEL [id number] 1/2 [place] Aortic Valve Aortic ValveAortic Stenosis V10.85m/Vicente Mean GR.3mmHg V21.14m/Vicente Peak GR.5mmHg LVOT Diameter2.4 (1.8-2.4cm)Doppler AVA3.37cm2 Pulmonic Valve V20.98m/s Other Information Technically limited study due to patient position.body habitus.patient moving. Conclusion Technically good study sinus rhythm. Aortic root enlargement. Left atrial enlargement. RV enlargement. Valves are normal. LVEF of 60% with normal RV function. Doppler reveals moderate tricuspid regurgitation. No pericardial effusion masses or vegetations.
--- NOTE | 2024-10-22 21:39 | DVHPN2 ---
Progress Note - Dictate Date Seen: Oct 22, 2024 Medical Necessity Reason Pt with a Central, PICC or Fol: No Subjective Patient was seen and evaluated in follow up. No overnight events. Patient is complaining of chest discomfort. Patient on room air. Telemetry reviewed. vital signs Vital Sign Date Time Temp Pulse Resp B/P (MAP) Pulse Ox O2 Delivery O2 Flow Rate FiO2 10/22/24 09:30 98.3 77 19 134/87 (103) 94 98.3 10/22/24 08:00 Room Air* 0 21 Total Intake and Output 10/21/24 10/21/24 10/22/24 15:00 23:00 07:00 Intake Total 420 ml 400 ml Balance 420 ml 400 ml medications Current Medications Medications Dose Ordered Sig/Maria G Route Start Time Stop Time Status Last Admin Dose Admin Aspirin 81 mg DAILY PO 10/20/24 10:00 10/22/24 09:52 81 MG Atorvastatin Calcium 40 mg HS PO 10/19/24 22:00 10/21/24 21:56 40 MG Thiamine HCl 100 mg DAILY PO 10/20/24 10:00 10/22/24 09:53 100 MG Folic Acid 1 mg DAILY PO 10/20/24 10:00 10/22/24 09:52 1 MG Hydralazine HCl 10 mg Q6HP PRN IV 10/19/24 15:30 10/21/24 00:07 10 MG Sodium Chloride 10 ml Q8HR IV 10/19/24 22:00 10/22/24 06:16 10 ML Acetaminophen/ Hydrocodone Bitart 1 tab Q4HP PRN PO 10/19/24 15:30 10/20/24 16:19 1 TAB Ondansetron HCl 4 mg Q4HP PRN IV 10/19/24 15:30 Docusate Sodium 100 mg BIDPRN PRN PO 10/19/24 15:30 Multivitamins 1 tab DAILY PO 10/20/24 10:00 10/22/24 09:53 1 TAB Acetaminophen 650 mg Q6HP PRN PO 10/19/24 15:30 10/19/24 21:54 650 MG Nitroglycerin 0.4 mg Q5MINP PRN SL 10/19/24 16:15 Morphine Sulfate 2 mg Q30M PRN IV 10/19/24 16:15 Enoxaparin Sodium 40 mg DAILY SC 10/21/24 10:00 10/22/24 09:53 40 MG objective GENERAL: Alert and oriented x 3. No acute distress. EYES: PERRL, EOMI. Anicteric. HENT: Moist mucous membranes. LUNGS: Clear to auscultation bilaterally. CARDIOVASCULAR: Regular rate and rhythm. ABDOMEN: Soft, non-tender and non-distended. EXTREMITIES: No edema. NEUROLOGIC: No focal neurological deficits. SKIN: Warm, dry. laboratory and microbiology Laboratory Tests 10/20/24 06:24 Test 10/20/24 06:24 Range/Units Serum Glucose 113 H 74-106 mg/dL Problem List Chest pain, non-cardiac. Alcohol use disorder. Hypertension. History of CVA. Dyslipidemia. Assessment/Plan Continued all current supportive medical care. Morphine for pain management. Aspirin. DVT prophylactics. Nitro SL. Additional plan as per the hospital course. Plan discussed with: Patient BRYAN DUTTA MD Oct 22, 2024 13:17
[2024-10-23 01:00] VITALS: BP 139/97; PULSE 85; RESP 20; TEMP 98.2; O2SAT 95
[2024-10-23 05:00] VITALS: BP 141/96; PULSE 79; RESP 20; TEMP 98.2; O2SAT 97
[2024-10-23 08:00] VITALS: PULSE 52
--- NOTE | 2024-10-23 12:08 | DVHPN2 ---
Reviewed: Care Plan, H&P, Labs, Medications, Previous Orders, Radiology Changes from previous H/P or p: No Changes General: Per HPI Eyes: No Pain, No Vision change, No Conjunctivae inflammation, No Eyelid inflammation, No Other, No Redness ENT: No Ear pain, No Ear discharge, No Nose pain, No Nose discharge, No Nose congestion, No Mouth pain, No Mouth swelling, No Throat pain, No Throat swelling, No Other Cardiovascular: Chest Pain; No Palpitations, No Orthopnea, No Paroxysmal Noc. Dyspnea, No Edema, No Lt Headedness, No Other Respiratory: No Cough, No Dry; Shortness of breath, SOB with excertion; No Wheezing, No Hemoptysis, No Pleuritic Pain, No Sputum; Other (SOB at rest) Gastrointestinal: Nausea; No Vomiting, No Abdominal Pain, No Diarrhea, No Constipation, No Melena, No Hematochezia, No Other Genitourinary: No Dysuria, No Frequency, No Incontinence, No Hematuria, No Retention, No Other Musculoskeletal: No other, No neck pain, No shoulder pain, No arm pain, No back pain, No hand pain, No leg pain, No foot pain Skin: No Rash, No Lesions, No Jaundice, No Bruising, No Other Objective Vitals Vital Signs Date Time Temp Pulse Resp B/P (MAP) Pulse Ox O2 Delivery O2 Flow Rate FiO2 10/23/24 08:00 Room Air* 0 21 10/23/24 08:00 52 10/23/24 05:00 98.2 20 141/96 (111) 97 98.2 Intake/Output Intake and Output 10/23/24 07:00 Intake Total 1050 ml Balance 1050 ml Intake Oral 1050 ml # Voids 6 # Bowel Movements 4 General Appearance: Alert, Oriented X3 HEENT: Atraumatic Lungs: Clear to auscultation Cardiovascular: Regular rate, Normal S1, Normal S2 Abdomen: Normal bowel sounds, Soft Laboratory Results Laboratory Tests 10/20/24 06:24 Urinalysis Test 10/19/24 14:22 Urine Color Yellow (Yellow) Urine Clarity Turbid (Clear) H Urine pH 6.0 (5.0-9.0) Urine Specific [place] 1.030 (1.001-1.035) Urine Protein 1+ (Negative) H Urine Ketones 1+ (Negative) H Urine Blood 1+ /uL (Negative) H Urine Nitrite Negative (Negative) Urine Bilirubin Negative (Negative) Urine Urobilinogen Normal mg/dL (Negative) Urine Leukocyte Esterase Negative /uL (Negative) Urine RBC 2 /hpf (0 - 3) Urine Microscopic WBC 1 /HPF (0-3) Urine Squamous Epithelial Cells Few /hpf (<5) Urine Bacteria None seen /hpf (None Seen) Urine Mucus Few (None Seen) Urine Glucose Normal mg/dL (Normal) Labs and/or images reviewed: Labs reviewed by me, Image(s) reviewed by me Assessment/Plan Plan discussed with: Patient Date of Service: Oct 23, 2024 Billing Provider: SONY JEFFERS DO Common Visit Codes: [id number] INP/OBS CARE(HIGH) SONY JEFFERS DO Oct 23, 2024 12:08
--- NOTE | 2024-10-23 23:16 | DVHPN2 ---
Progress Note - Dictate Date Seen: Oct 23, 2024 Medical Necessity Reason Pt with a Central, PICC or Fol: No Subjective Patient was seen and evaluated in follow up. Patient has no new complaints at this time. Patient denies any cardiac symptoms. Patient is cardiac stable for discharge. Telemetry reviewed. vital signs Vital Sign Date Time Temp Pulse Resp B/P (MAP) Pulse Ox O2 Delivery O2 Flow Rate FiO2 10/23/24 08:00 Room Air* 0 21 10/23/24 08:00 52 10/23/24 05:00 98.2 20 141/96 (111) 97 98.2 Total Intake and Output 10/22/24 10/22/24 10/23/24 15:00 23:00 07:00 Intake Total 550 ml 500 ml Balance 550 ml 500 ml objective GENERAL: Alert and oriented x 3. No acute distress. EYES: PERRL, EOMI. Anicteric. HENT: Moist mucous membranes. LUNGS: Clear to auscultation bilaterally. CARDIOVASCULAR: Regular rate and rhythm. ABDOMEN: Soft, non-tender and non-distended. EXTREMITIES: No edema. NEUROLOGIC: No focal neurological deficits. SKIN: Warm, dry. laboratory and microbiology Laboratory Tests 10/20/24 06:24 Test 10/20/24 06:24 Range/Units Serum Glucose 113 H 74-106 mg/dL Problem List Chest pain, non-cardiac. Alcohol use disorder. Hypertension. History of CVA. Dyslipidemia. Assessment/Plan Continued all current supportive medical care. Morphine for pain management. Aspirin. DVT prophylactics. Nitro SL. Additional plan as per the hospital course. Plan discussed with: Patient BRYAN DUTTA MD Oct 23, 2024 12:29
== END 2024-10-23 10:40 | disposition home or self-care (01) | DRG 203 ==
LOC: EDBD 12:10 → ER 12:10 → OVERFLOW 16:10 → TELE-EAST 21:32
PROVIDERS: ADMIT Internal Medicine; ATTEND Internal Medicine
DX: M94.0 Chondrocostal junction syndrome [Tietze] (principal); E03.9 Hypothyroidism, unspecified; I25.10 Atherosclerotic heart disease of native coronary artery without angina pectoris; E78.00 Pure hypercholesterolemia, unspecified; E86.0 Dehydration; F10.120 Alcohol abuse with intoxication, uncomplicated; I10 Essential (primary) hypertension; Z68.30 Body mass index [BMI] 30.0-30.9, adult; I25.2 Old myocardial infarction; E66.01 Morbid (severe) obesity due to excess calories; G62.9 Polyneuropathy, unspecified; Z71.41 Alcohol abuse counseling and surveillance of alcoholic; Z86.73 Personal history of transient ischemic attack (TIA), and cerebral infarction without residual deficits; Z82.49 Family history of ischemic heart disease and other diseases of the circulatory system; Y90.4 Blood alcohol level of 80-99 mg/100 ml
CPT/HCPCS: 36415; 71045; 80048; 80053; 80307; 80320; 81001; 83735; 84443; 84484; 85025; 86803; 87340; 93005; 93306; G0378

== ENCOUNTER 2024-12-05 13:11 | Emergency (ER) | payer MEDICAID ==
[~2024-12-05] VITALS: Ht 170.2 cm; Wt 68.2 kg
[~2024-12-05 13:11] MED LIST changes: +ASPI-498 PO; +FOLI-119 PO; +THIA100T13 PO
--- NOTE | 2024-12-05 13:24 | ED.PDOC ---
History of Present Illness HPI Comments 63 y.o male with PMHx of CVA (right sided deficits), presents to the ED via EMS for an evaluation of ETOH. EMS reports patient's roommate called 911 today due to patient's behavior today s/p drinking all day today. Roommate reports patient has a history of heavy ETOH use, at times get aggressive and would have to be placed in the basement due to his aggressiveness. Patient presents calm to the ED and is not answering any questions. EMS noted empty Vodka bottles in the home. Time Seen by MD: 13:04 Reviewed Notes: Nurses Notes, Sustainability Officer Notes, Medications, Allergies Allergies: Coded Allergies: NO KNOWN ALLERGIES (Unverified , 05/17/23) Home Meds Active Scripts Atorvastatin Calcium (Lipitor) 40 Mg Tab, 1 TAB PO QPM, #90 TAB 1 Refill Prov:JAY CERVANTES MD 10/21/24 Aspirin (ASPIRIN 81) 81 Mg Tab, 81 MG PO DAILY, #90 TAB Prov:JAY CERVANTES MD 10/21/24 Folic Acid (Folic Acid) 1 Mg Tab, 1 MG PO DAILY, #30 TAB Prov:JAY CERVANTES MD 10/21/24 Thiamine HCl (Thiamine Hydrochloride) 100 Mg Tab, 100 MG PO DAILY, #30 TAB Prov:JAY CERVANTES MD 10/21/24 Atorvastatin Calcium (Lipitor) 40 Mg Tab, 1 TAB PO QPM, #90 TAB 1 Refill Prov:CHAYO RICHARDS MD 05/22/23 Aspirin (Aspir-81) 81 Mg Tab, 1 TAB PO DAILY, #30 TAB 5 Refills Prov:CHAYO RICHARDS MD 05/22/23 Docusate Sodium (Docusate Sodium) 100 Mg Cap, 100 MG PO BIDPRN PRN, #60 CAP Prov:CHAYO RICHARDS MD 05/20/23 Hydrocodone-Acetaminophen (Hydrocodone Bitartrate/AC 5-325 mg) 1 Tab Tab, 1 TAB PO Q4HP PRN, #20 TAB Prov:CHAYO RICHARDS MD 05/20/23 Amoxicillin & Pot Clavulanate (AUGMENTIN TABLET) 875 Mg Tb, 875 MG PO BID, #20 TAB Prov:CHAYO RICHARDS MD 05/20/23 Information Source: Emergency Med Personnel Mode of Arrival: EMS Severity: Moderate Timing: Hours Duration: Since onset Past Medical History PAST MEDICAL HISTORY: CVA, High Lipids, HTN, [place], Thyroid Surgical History: Denies all surgeries Family History Family History: Unknown Social History Smoker: Non-Smoker Alcohol: Heavy Drugs: Denies Drug Use Lives In: Home Unable to Obtain due to: Altered Mental Status (Heavy ETOH use today- unable to provide information ) Physical Exam General Appearance: Moderate Distress HEENT: Normal ENT Inspection, Pharynx Normal, TMs Normal Neck: Full Range of Motion, Non-Tender, Normal, Normal Inspection Respiratory: Chest Non-Tender, Lungs Clear, No Accessory Muscle Use, No Respiratory Distress, Normal Breath Sounds Cardiovascular: No Edema, No JVD, No Murmur, No Gallop, Normal Peripheral Pulses, Regular Rate/Rhythm Breast Exam: Deferred Gastrointestinal: No Organomegaly, Non Tender, No Pulsatile Mass, Normal Bowel Sounds, Soft Genitalia: Deferred Pelvic: Deferred Rectal: Deferred Extremities: No calf tenderness, No pedal edema Musculoskeletal : Apperance: Normal Neurologic: Alert, No Motor Deficits, Normal Affect, Normal Mood, No Sensory Deficits Cerebellar Function: NOT DONE Reflexes: NOT DONE Skin: Dry, Normal Color, Warm Peripheral Pulses: 3+ Radial (R), 3+ Radial (L) Lymphatic: No Adenopathy Was a procedure done? Was a procedure done?: No Differential Dx Considerations may include: ETOH abuse, Dehydration X-Ray, Labs, Meds, VS Vital Signs Date Time Temp Pulse Resp B/P (MAP) Pulse Ox O2 Delivery O2 Flow Rate FiO2 12/05/24 13:11 98.6 93 10 132/91 97 98.6 Lab Test 12/05/24 14:32 Range/Units White Blood Count 6.7 4.4-10.8 10^3/uL Red Blood Count 4.54 4.5-5.90 10^6/uL Hemoglobin 16.4 13.5-17.5 g/dL Hematocrit 45.6 41.0-53.0 % Mean Corpuscular Volume 100.4 H 80.0-100.0 fL Mean Corpuscular Hemoglobin 36.0 H 28.0-32.0 pg Mean Corpuscular Hemoglobin Concent 35.8 32.0-36.0 g/dL Red Cell Distribution Width 15.6 H 11.8-14.3 % Platelet Count 191 140-450 10^3/uL Mean Platelet Volume 8.2 6.9-10.8 fL Neutrophils (%) (Auto) 67.2 37.0-80.0 % Lymphocytes (%) (Auto) 23.8 10.0-50.0 % Monocytes (%) (Auto) 8.3 0.0-12.0 % Eosinophils (%) (Auto) 0.4 0.0-7.0 % Basophils (%) (Auto) 0.3 0.0-2.0 % Neutrophils # (Auto) 4.5 1.6-8.6 10 ^3/uL Lymphocytes # (Auto) 1.6 0.4-5.4 10 ^3/uL Monocytes # (Auto) 0.6 0-1.3 10 ^3/uL Eosinophils # (Auto) 0 0-0.8 10 ^3/uL Basophils # (Auto) 0 0-0.2 10 ^3/uL Nucleated Red Blood Cells 0.1 % Plasma/Serum Blood Alcohol 244.4 H <10 mg/dL Current Medications Medications (Trade) Dose Ordered Sig/Maria G Route Start Time Stop Time Status Last Admin Sodium Chloride 1,000 ml @ 1,000 mls/hr Q1H ONCE IVB 12/05/24 13:30 12/05/24 14:29 DC 12/05/24 14:57 Ondansetron HCl (Zofran) 4 mg ONCE ONCE IV 12/05/24 13:30 12/05/24 13:31 DC 12/05/24 14:57 Patient alert. Alcohol in his system. Vitals stable. Moving all extremities. Establish intravenous access. Was given fluids. Alcohol abuse. Counseled patient on effects of drinking alcohol for 15 minutes pain Establish intravenous access. Was given fluids. Was given Zofran. WBC within normal limits. Hemoglobin within normal limits. Explained to the patient. Continue monitoring. Time of 1ST Reevaluation: 13:24 Reevaluation 1ST: Unchanged Patient Education/Counseling: Diagnosis, Treatment, Prognosis Family Education/Counseling: No Family Present SEPSIS Sepsis Screen Physician Orders Drug Screen (12/05/24 13:29) Sodium Chloride 0.9% (12/05/24 13:30) Vital Signs Date Time Temp Pulse Resp B/P (MAP) Pulse Ox O2 Delivery O2 Flow Rate FiO2 12/05/24 13:11 98.6 93 10 132/91 97 98.6 Laboratory Tests Test 12/05/24 14:32 White Blood Count 6.7 10^3/uL (4.4-10.8) Medications Medications Dose Ordered Sig/Maria G Route Start Time Stop Time Status Last Admin Dose Admin Ondansetron HCl 4 mg ONCE ONCE IV 12/05/24 13:30 12/05/24 13:31 DC 12/05/24 14:57 Sodium Chloride 1,000 ml @ 1,000 mls/hr Q1H ONCE IVB 12/05/24 13:30 12/05/24 14:29 DC 12/05/24 14:57 Departure 1 Departure Time of Disposition: 15:55 Impression: Primary Impression: Alcohol use, unspecified with intoxication, uncomplicated Disposition: 01 HOME / SELF CARE / HOMELESS Condition: Good Discharged With: Self Critical Care Note Critical Care Time?: No Stability Stability form required: No I personally scribed for MARY CARMEN CARREON MD ([email or web address]) on 12/05/24 at 13:24. Electronically submitted by Keiko Connelly ([email or web address]). MARY CARMEN CARREON MD Dec 05, 2024 13:24
[2024-12-05 14:46] LABS: Hematocrit 45.6 % (41.0-53.0); Hemoglobin 16.4 g/dL (13.5-17.5); Mean Corpuscular Hemoglobin 36.0 pg (28.0-32.0); Mean Corpuscular Volume 100.4 fL (80.0-100.0); Nucleated Red Blood Cells % 0.1 %
[2024-12-05] MEDS: ONDANSETRON HCL 4 MG/2 ML VIAL IV ONE (14:57)
[2024-12-05] MEDS: SODIUM CHLORIDE 0.9% 1,000 ML IVB ONE (14:57)
[2024-12-05] MEDS: SODIUM CHLORIDE 0.9% 1,000 ML IV ONE ×2 (15:54→16:10)
[2024-12-05 16:00] VITALS: PULSE 80; RESP 16; O2SAT 92
[2024-12-05 16:04] VITALS: TEMP 98.2
[2024-12-05] MEDS: LORazepam 2MG/ML-1ML VIAL IV ONE (16:05)
[2024-12-05] MEDS: THIAMINE 100mg/ml INJ (200mg/2ml VIAL) IV ONE (16:08)
[2024-12-05 17:14] VITALS: BP 145/92; PULSE 100; RESP 20; O2SAT 95
== END 2024-12-05 18:37 | disposition home or self-care (01) ==
LOC: ER 13:11 → EDBD 13:11 → EDUNIT# 13:11 → ER 18:37
DX: F10.920 Alcohol use, unspecified with intoxication, uncomplicated (principal); E78.5 Hyperlipidemia, unspecified; I10 Essential (primary) hypertension; I21.9 Acute myocardial infarction, unspecified; Z86.73 Personal history of transient ischemic attack (TIA), and cerebral infarction without residual deficits; Z79.82 Long term (current) use of aspirin; Z79.899 Other long term (current) drug therapy; Y90.8 Blood alcohol level of 240 mg/100 ml or more
CPT/HCPCS: 36415; 80320; 85025; 96361; 96374; 96375; 99284; J2405; J3411; J7030

== ENCOUNTER 2025-01-01 01:47 | Inpatient (IN) | payer MEDICAID ==
[2025-01-01] VITALS (8 sets, daily range): BP systolic 114–142; BP diastolic 72–99; PULSE 66–98; RESP 16–18; TEMP 97.6–99.4; O2SAT 95–99
[~2025-01-01] VITALS: Ht 177.8 cm; Wt 96.0 kg
--- NOTE | 2025-01-01 02:11 | ED.PDOC ---
HPI Comments 64-year-old male who came to ER via EMS for chest pains. Patient has a history of hypertension, dyslipidemia, WA 3x, CVA 2x. Patient was asleep when she woke up due to sudden onset chest pains, midsternal, epigastric, stabbing, non radiating, associated with nausea. dizziness and shortness of breath. Patient self medicated with antacids but offered no relief. Patient states pain is similar to when he had an WA. Was given aspirin and nitroglycerin while en route to the ER REVIEW OF SYSTEMS: General: No fever, no chills, or fatigue HEENT: No sore throat, no earache, no congestion, no neck pain. Cardiac: Positive chest pain. No palpitations. Lungs: Positive shortness of breath, no cough. GI: Positive nausea, positive vomiting, no diarrhea, no constipation, no abdominal pain : No dysuria, frequency, or urgency. No hematuria. Musculoskeletal: No joint pain , no joint swelling, no extremity edema. Skin: No rash, no itching. Neuro: No headache, positive dizziness, no weakness PHYSICAL EXAM: General: Awake, alert and oriented. No acute distress. Skin: Skin in warm, dry and intact. Appropriate color for ethnicity. HEENT: The head is normocephalic and atraumatic. Conjunctivae are clear without exudates or hemorrhage. Sclera is non-icteric. EOM are intact. No signs of nystagmus. Eyelids are normal in appearance without swelling or lesions. Oral mucosa is pink and moist Neck: The neck is supple with normal range of motion. No JVD. Cardiac: Heart rate and rhythm are normal. No murmurs, gallops, or rubs are auscultated. Respiratory: No signs of respiratory distress. Lung sounds are clear in all lobes bilaterally without rales, rhonchi, or wheezes. Abdominal: Abdomen is soft, positive epigastric tenderness without distention, guarding or rigidity. Bowel sounds are present and normoactive in all four quadrants. Extremities: Upper and lower extremities are atraumatic in appearance without deformity or edema. Neurological: The patient is awake, alert and oriented to person, place, and time with normal speech. Speech is clear. There is no facial asymmetry. Psychiatric: Appropriate mood and affect. Good judgement and insight. Chief Complaint: Chest pain Time Seen by MD: 02:08 Reviewed Notes: Director Global [employer] Notes Allergies: Coded Allergies: NO KNOWN ALLERGIES (Unverified , 05/17/23) Home Meds Active Scripts Atorvastatin Calcium (Lipitor) 40 Mg Tab, 1 TAB PO QPM, #90 TAB 1 Refill Prov:JAY CERVANTES MD 10/21/24 Aspirin (ASPIRIN 81) 81 Mg Tab, 81 MG PO DAILY, #90 TAB Prov:JAY CERVANTES MD 10/21/24 Folic Acid (Folic Acid) 1 Mg Tab, 1 MG PO DAILY, #30 TAB Prov:JAY CERVANTES MD 10/21/24 Thiamine HCl (Thiamine Hydrochloride) 100 Mg Tab, 100 MG PO DAILY, #30 TAB Prov:JAY CERVANTES MD 10/21/24 Atorvastatin Calcium (Lipitor) 40 Mg Tab, 1 TAB PO QPM, #90 TAB 1 Refill Prov:CHAYO RICHARDS MD 05/22/23 Aspirin (Aspir-81) 81 Mg Tab, 1 TAB PO DAILY, #30 TAB 5 Refills Prov:CHAYO RICHARDS MD 05/22/23 Docusate Sodium (Docusate Sodium) 100 Mg Cap, 100 MG PO BIDPRN PRN, #60 CAP Prov:CHAYO RICHARDS MD 05/20/23 Hydrocodone-Acetaminophen (Hydrocodone Bitartrate/AC 5-325 mg) 1 Tab Tab, 1 TAB PO Q4HP PRN, #20 TAB Prov:CHAYO RICHARDS MD 05/20/23 Amoxicillin & Pot Clavulanate (AUGMENTIN TABLET) 875 Mg Tb, 875 MG PO BID, #20 TAB Prov:CHAYO RICHARDS MD 05/20/23 Information Source: Patient, Emergency Med Personnel Mode of Arrival: EMS Past Medical History PAST MEDICAL HISTORY: CVA, High Lipids, HTN, [place], Thyroid Surgical History: Denies all surgeries Family History Family History: Reviewed,noncontributory to illness Social History Smoker: Non-Smoker Alcohol: Heavy Drugs: Denies Drug Use Lives In: Home EKG EKG : Pulse Rate (adult): 60 Cardiac Rhythm: NSR Block: RBBB Was a procedure done? Was a procedure done?: No CP Differential Dx Differential Diagnosis: Angina, Anxiety / Panic Attack Differential Diagnosis: Angina, Chest Wall Pain, Costochondritis, Esophageal reflux/spasm, Gastritis, Myocardial Infarction X-Ray, Labs, Meds, VS Vital Signs Date Time Temp Pulse Resp B/P (MAP) Pulse Ox O2 Delivery O2 Flow Rate FiO2 01/01/25 04:31 70 18 130/70 01/01/25 03:33 64 18 146/105 01/01/25 03:30 98.6 64 16 146/105 (119) 95 98.6 01/01/25 02:11 60 01/01/25 01:48 60 01/01/25 01:48 97.8 59 16 147/81 99 97.8 Lab Test 01/01/25 06:00 01/01/25 03:12 01/01/25 02:12 Range/Units Lactic Acid Level 1.8 0.4-2.0 mmol/L Troponin I High Sensitivity < 3 L < 3 L </=54 ng/L White Blood Count 10.1 4.4-10.8 10^3/uL Red Blood Count 3.93 L 4.5-5.90 10^6/uL Hemoglobin 13.9 13.5-17.5 g/dL Hematocrit 39.9 L 41.0-53.0 % Mean Corpuscular Volume 101.8 H 80.0-100.0 fL Mean Corpuscular Hemoglobin 35.4 H 28.0-32.0 pg Mean Corpuscular Hemoglobin Concent 34.8 32.0-36.0 g/dL Red Cell Distribution Width 15.4 H 11.8-14.3 % Platelet Count 186 140-450 10^3/uL Mean Platelet Volume 9.0 6.9-10.8 fL Neutrophils (%) (Auto) 75.1 37.0-80.0 % Lymphocytes (%) (Auto) 16.9 10.0-50.0 % Monocytes (%) (Auto) 6.1 0.0-12.0 % Eosinophils (%) (Auto) 1.6 0.0-7.0 % Basophils (%) (Auto) 0.3 0.0-2.0 % Neutrophils # (Auto) 7.6 1.6-8.6 10 ^3/uL Lymphocytes # (Auto) 1.7 0.4-5.4 10 ^3/uL Monocytes # (Auto) 0.6 0-1.3 10 ^3/uL Eosinophils # (Auto) 0.2 0-0.8 10 ^3/uL Basophils # (Auto) 0 0-0.2 10 ^3/uL Nucleated Red Blood Cells 0.0 % Prothrombin Time 10.3 9.3-11.8 sec Prothrombin Time INR 0.97 0.9-1.15 Activated Partial Thromboplast Time 25.9 24.5-34.5 SEC Sodium Level 139 136-145 mmol/L Potassium Level 3.8 3.5-5.1 mmol/L Chloride Level 101 98-107 mmol/L Carbon Dioxide Level 27 20-31 mmol/L Anion Gap 11 5-15 Blood Urea Nitrogen 10 9-23 mg/dL Creatinine 0.82 0.700-1.30 mg/dL Glomerular Filtration Rate Calc 99 >90 mL/min BUN/Creatinine Ratio 12.2 10.0-20.0 Serum Glucose 133 H 74-106 mg/dL Hemoglobin A1c 5.5 <5.7 % A1C Calcium Level 9.4 8.7-10.4 mg/dL Phosphorus Level 2.3 L 2.4-5.1 mg/dL Magnesium Level 1.9 1.6-2.6 mg/dL Total Bilirubin 0.4 0.2-1.0 mg/dL Aspartate Amino Transferase (AST) 50 H 13-40 U/L Alanine Aminotransferase (ALT) 51 H 7-40 U/L Alkaline Phosphatase 79 46-116 U/L B-Type Natriuretic Peptide 123.14 0-100 pg/mL Triglycerides Level 287 H < 150 mg/dL Cholesterol Level 182 < 200 mg/dL LDL Cholesterol 109 H < 100 mg/dL HDL Cholesterol 37 L 40-59 mg/dL Lipase 83 H 12-53 U/L Vitamin B12 Level 479 211-911 pg/mL Vitamin D 25-Hydroxy 30.9 30.0-100 ng/mL Thyroid Stimulating Hormone (TSH) 4.24 0.55-4.78 uIU/mL Current Medications Medications (Trade) Dose Ordered Sig/Maria G Route Start Time Stop Time Status Last Admin Morphine Sulfate 2 mg ONCE ONCE IV 01/01/25 02:00 01/01/25 02:02 DC 01/01/25 03:33 Metronidazole 100 ml @ 100 mls/hr ONCE ONCE IV 01/01/25 05:00 01/01/25 05:59 DC 01/01/25 07:08 Levofloxacin/ Dextrose 100 ml @ 100 mls/hr ONCE ONCE IV 01/01/25 05:00 01/01/25 05:59 DC 01/01/25 07:09 Time of 1ST Reevaluation: 02:04 Reevaluation 1ST: Unchanged Patient Education/Counseling: Need For Follow Up Family Education/Counseling: No Family Present SEPSIS Sepsis Screen Physician Orders Electrocardigram (01/01/25 01:51) Electrocardigram (01/01/25 02:51) Electrocardigram (01/01/25 04:51) Chest Xray 1 View (01/01/25 01:59) Saline Lock (01/01/25 01:59) Concrete Stone Finisher (01/01/25 ) Chst Ab Pel Wo Con-No Iv/Oral (01/01/25 01:59) Blood Culture (01/01/25 05:10) Vital Signs Date Time Temp Pulse Resp B/P (MAP) Pulse Ox O2 Delivery O2 Flow Rate FiO2 01/01/25 04:31 70 18 130/70 01/01/25 03:33 64 18 146/105 01/01/25 03:30 98.6 64 16 146/105 (119) 95 98.6 01/01/25 02:11 60 01/01/25 01:48 60 01/01/25 01:48 97.8 59 16 147/81 99 97.8 Laboratory Tests Test 01/01/25 02:12 01/01/25 06:00 White Blood Count 10.1 10^3/uL (4.4-10.8) Lactic Acid Level 1.8 mmol/L (0.4-2.0) Departure 1 Departure Time of Disposition: 04:47 Impression: Primary Impression: Acute chest pain Additional Impressions: Diverticulitis Cholelithiasis Nephrolithiasis Disposition: ADMITTED INPATIENT Condition: Stable Comments Patient admitted to hospitalist service for further treatment, evaluation and monitoring. Extensive evaluation was performed in attempt to identify or rule out: (See differential diagnosis section) The following tests were ordered, and results were reviewed by me and discussed with patient: (See diagnostic results section) The following test were independently interpreted by me: EKG Additional information was gathered from interviewing the following independent historians: EMS personnel Decision regarding hospitalization or escalation of hospital level of care: Risk and benefits of admission for further treatment of patient's condition was considered. Due to patient's current clinical condition, high risk of decline and poor outcome if discharged and need for further inpatient management and monitoring, patient will be admitted to the hospital. Discussed with patient. Critical Care Note Critical Care Time?: Yes (35 min-critical care time only) Critical care comment: Chest pain Stability Stability form required: No Heart Score Heart Score: Heart Score Response (Comments) Value History Moderate Suspicious 1 EKG Repolarization Disturb 1 Age 45-64 1 Risk Factors 1 or 2 risk factors 1 Troponin Normal limit 0 Total 4 I personally scribed for MAYE MCPHERSON MD ([email or web address]) on 01/01/25 at 02:11. Electronically submitted by Oswaldo Castañeda ([email or web address]). I personally scribed for MAYE MCPHERSON MD ([email or web address]) on 01/01/25 at 03:41. Electronically submitted by Oswaldo Castañeda ([email or web address]). MAYE MCPHERSON MD Jan 01, 2025 02:11
[2025-01-01 02:22] LABS: Hematocrit 39.9 % (41.0-53.0); Hemoglobin 13.9 g/dL (13.5-17.5); Mean Corpuscular Hemoglobin 35.4 pg (28.0-32.0); Mean Corpuscular Volume 101.8 fL (80.0-100.0); Nucleated Red Blood Cells % 0.0 %
[2025-01-01 02:39] LABS: Alanine Aminotransferase 51 U/L (7-40); Alkaline Phosphatase 79 U/L (46-116); Anion Gap 11 (5-15); BUN/Creatinine Ratio 12.2 (10.0-20.0); Bilirubin, Total 0.4 mg/dL (0.2-1.0); Blood Urea Nitrogen 10 mg/dL (9-23); Calcium 9.4 mg/dL (8.7-10.4); Carbon Dioxide 27 mmol/L (20-31); Chloride 101 mmol/L (98-107); Glucose 133 mg/dL (74-106); Lipase 83 U/L (12-53); Potassium 3.8 mmol/L (3.5-5.1); Sodium 139 mmol/L (136-145)
--- NOTE | 2025-01-01 03:03 | DVH ---
CHEST RADIOGRAPH Indication: cp Technique: Single frontal view of the chest was obtained COMPARISON: XY CHEST PORTABLE on DOS: 10/19/24, XY CHEST PORTABLE on DOS: 08/24/23, XY CHEST TWO VIEWS ROUTINE on DOS: 05/17/23 FINDINGS: Lines and Tubes: None Lungs: Clear Pleura: No effusion. No pneumothorax. Cardiomediastinal contours: Unremarkable Bones: Unremarkable IMPRESSION: 1. No acute disease.
[2025-01-01] MEDS: MORPHINE SULFATE INJ 2 MG/ml SYRG IV ONE (03:33)
--- NOTE | 2025-01-01 03:45 | DVH ---
Exam: CT CHST AB PEL WO CON-NO IV/ORAL History: Epigastric pain Comparison Study: XY CHEST XRAY 1 VIEW on DOS: 01/01/25, XY CHEST PORTABLE on DOS: 10/19/24, XY CHEST P ORTABLE on DOS: 08/24/23, XY CHEST TWO VIEWS ROUTINE on DOS: 05/17/23 Technique: Multidetector spiral CT of the chest, abdomen and pelvis was performed from lower neck to pubic symphysis Axial, coronal and sagittal multiplanar reformats were performed by the technologist on a separate workstation. Radiation Dose : 1. Chest/Abdomen/Pelvis: CTDIvol 15.36 mGy, DLP 1196.04 mGy*cm. Findings: Lower neck: Normal thyroid. Lungs: No focal consolidation, pleural effusion or pneumothorax. Heart/Vascular Structures: Normal heart size. No pericardial effusion. Lymph Nodes: No adenopathy Pleura: No pleural effusion or significant pneumothorax. Liver: The liver is normal in size. Hepatic steatosis. No focal lesions. Normal hepatic parenchymal attenuation. Gallbladder and Biliary Tree: Cholelithiasis and gallbladder distention. Spleen: Unremarkable Pancreas: The pancreas is normal in appearance without focal lesions. Adrenal Glands: Unremarkable Kidneys: Punctate nonobstructive bilateral nephroliths. Mild left perinephric edema. No evidence of hydronephrosis. Bladder: Unremarkable Bowel: The stomach is grossly normal in appearance. Moderate circumferential wall thickening of the p roximal sigmoid colon in the setting of multiple diverticula with adjacent inflammatory changes, cons istent with sequelae of acute diverticulitis. Small bowel and colon are normal in caliber and distrib ution. The appendix is not visualized; however, no secondary findings of acute appendicitis identifi ed. Ascites: Absent Lymphadenopathy: No mesenteric, retroperitoneal or periportal lymphadenopathy. Abdominal Wall and Mesentery: Unremarkable. Vasculature: The visualized abdominal aorta is normal in size and caliber. Atherosclerotic vascular calcifications. Pelvic Organs: Unremarkable Musculoskeletal: No aggressive focal bony lesions, acute fractures or dislocation. IMPRESSION: 1. Acute uncomplicated proximal sigmoid diverticulitis. 2. Cholelithiasis and gallbladder distention. 3. Bilateral nephrolithiasis.
[2025-01-01 05:34] LABS: Magnesium 1.9 mg/dL (1.6-2.6)
[2025-01-01 05:36] LABS: Cholesterol 182.0 mg/dL (< 200); HDL Cholesterol 37.0 mg/dL (40-59); Triglycerides 287.0 mg/dL (< 150)
[2025-01-01 05:39] LABS: INR 0.97 (0.9-1.15); Partial Thromboplastin Time 25.9 SEC (24.5-34.5); Prothrombin Time 10.3 sec (9.3-11.8)
[2025-01-01] MEDS: SODIUM CHLORIDE 0.9% 1,000 ML IV SCH (06:45)
[2025-01-01] MEDS ORDERED: NITROGLYCERIN 0.4 MG SL TAB SL PRN (06:45)
[2025-01-01] MEDS ORDERED: MORPHINE SULFATE INJ 2 MG/ml SYRG IV PRN (06:45)
[2025-01-01] MEDS ORDERED: ACETAMINOPHEN 325 MG TAB PO PRN (06:45)
--- NOTE | 2025-01-01 06:56 | DVHHPRES ---
History of Present Illness Resident Creating Document: BENIGNO CHURCHILL RESIDENT History of Present Illness This is a 64-year-old male with past medical history of hypertension, coronary artery disease with [place], stroke, presented to the ER with chief complain of epigastrium and chest pain. He is a poor historian. He stated pain started suddenly around 10:00 p.m. at night yesterday, described as stabbing, 10 on 10, nonradiating, no aggravating or relieving factors. Pain is associated with nausea, dizziness without loss of consciousness, subjective fever, chills, numbness of the right side. He also complained of diarrhea, episodes daily for 3 days, stools are watery in consistency without any blood. He denies eating at a food truck, intake of raw sea foods, recent travel and sick contacts. PMHx: Hypertension, CAD with [place], stroke (unable to provide further details in the past history) PSHx: No surgeries in past Social history: Alcohol use, 500 mL vodka daily ( reportedly last consumed 2 days back), no smoking or recreational drug use. Lives in home with family. Full code. Next of kin brother Home medication: Aspirin, muscle relaxant, pain medication Patient was examined at bedside today. No new complaints. He will be admitted for further assessment and management. Review of Systems Constitutional: Yes: Fever, Chills ENT: Ear pain Cardiovascular: Chest Pain Gastrointestinal: Nausea, Abdominal Pain, Diarrhea Genitourinary: Dysuria Neurological: Weakness, Numbness Allergies: Coded Allergies: NO KNOWN ALLERGIES (Unverified , 05/17/23) Medications Current Medications Medications Dose Ordered Sig/Maria G Route Start Time Stop Time Status Last Admin Dose Admin Acetaminophen 325 mg Q4HP PRN PO 01/01/25 06:45 Morphine Sulfate 2 mg Q4HPRN PRN IV 01/01/25 06:45 Enoxaparin Sodium 40 mg DAILY SC 01/01/25 10:00 Nitroglycerin 0.4 mg Q5MINP PRN SL 01/01/25 06:45 Morphine Sulfate 2 mg Q30M PRN IV 01/01/25 06:45 Ceftriaxone Sodium 50 ml @ 100 mls/hr DAILY@09 IV 01/01/25 09:00 Metronidazole 100 ml @ 100 mls/hr Q8HR IV 01/01/25 14:00 Pantoprazole Sodium 40 mg DAILY IV 01/01/25 10:00 Thiamine HCl 100 mg DAILY IV 01/02/25 10:00 Multivitamins 1 tab DAILY PO 01/01/25 10:00 Aspirin 81 mg DAILY PO 01/01/25 10:00 Atorvastatin Calcium 20 mg HS PO 01/01/25 22:00 Sodium Chloride 1,000 ml @ 100 mls/hr Q10H IV 01/01/25 06:45 Exam Vital Signs Vital Signs Date Time Temp Pulse Resp B/P (MAP) Pulse Ox O2 Delivery O2 Flow Rate FiO2 01/01/25 04:31 70 18 130/70 01/01/25 03:30 98.6 95 98.6 Exam General: Patient alert and oriented in person, place and time. Patient following commands. HEENT: Normocephalic, atraumatic, moist mucous membranes Respiratory/pulmonary: Clear lungs bilaterally, vesicular murmurs present in almost all lung cristobal, no associated crackles or wheezes. Cardiovascular: Normal heart sounds S1 and S2 with no associated murmurs Abdomen: Soft, nontender abdomen. Extremities: There is no peripheral edema present at the lower extremities. Peripheral Pulses: 3+ Radial (R). 3+ Radial (L). 3+ Dorsalis pedis (R). 3+ Dorsalis pedis(L) Skin: No rashes or pruritus, there is no sacral edema present at this time. Neurological: Motor strength 4 on 5 on right side, left side within normal limits. Intact sensations. Intact cranial nerves with no focal neurologic deficits Labs/Xrays Labs Test 01/01/25 06:00 01/01/25 03:12 01/01/25 02:12 Range/Units Lactic Acid Level 1.8 0.4-2.0 mmol/L Troponin I High Sensitivity < 3 L </=54 ng/L White Blood Count 10.1 4.4-10.8 10^3/uL Red Blood Count 3.93 L 4.5-5.90 10^6/uL Hemoglobin 13.9 13.5-17.5 g/dL Hematocrit 39.9 L 41.0-53.0 % Mean Corpuscular Volume 101.8 H 80.0-100.0 fL Mean Corpuscular Hemoglobin 35.4 H 28.0-32.0 pg Mean Corpuscular Hemoglobin Concent 34.8 32.0-36.0 g/dL Red Cell Distribution Width 15.4 H 11.8-14.3 % Platelet Count 186 140-450 10^3/uL Mean Platelet Volume 9.0 6.9-10.8 fL Neutrophils (%) (Auto) 75.1 37.0-80.0 % Lymphocytes (%) (Auto) 16.9 10.0-50.0 % Monocytes (%) (Auto) 6.1 0.0-12.0 % Eosinophils (%) (Auto) 1.6 0.0-7.0 % Basophils (%) (Auto) 0.3 0.0-2.0 % Neutrophils # (Auto) 7.6 1.6-8.6 10 ^3/uL Lymphocytes # (Auto) 1.7 0.4-5.4 10 ^3/uL Monocytes # (Auto) 0.6 0-1.3 10 ^3/uL Eosinophils # (Auto) 0.2 0-0.8 10 ^3/uL Basophils # (Auto) 0 0-0.2 10 ^3/uL Nucleated Red Blood Cells 0.0 % Prothrombin Time 10.3 9.3-11.8 sec Prothrombin Time INR 0.97 0.9-1.15 Activated Partial Thromboplast Time 25.9 24.5-34.5 SEC Sodium Level 139 136-145 mmol/L Potassium Level 3.8 3.5-5.1 mmol/L Chloride Level 101 98-107 mmol/L Carbon Dioxide Level 27 20-31 mmol/L Anion Gap 11 5-15 Blood Urea Nitrogen 10 9-23 mg/dL Creatinine 0.82 0.700-1.30 mg/dL Glomerular Filtration Rate Calc 99 >90 mL/min BUN/Creatinine Ratio 12.2 10.0-20.0 Serum Glucose 133 H 74-106 mg/dL Hemoglobin A1c 5.5 <5.7 % A1C Calcium Level 9.4 8.7-10.4 mg/dL Phosphorus Level 2.3 L 2.4-5.1 mg/dL Magnesium Level 1.9 1.6-2.6 mg/dL Total Bilirubin 0.4 0.2-1.0 mg/dL Aspartate Amino Transferase (AST) 50 H 13-40 U/L Alanine Aminotransferase (ALT) 51 H 7-40 U/L Alkaline Phosphatase 79 46-116 U/L B-Type Natriuretic Peptide 123.14 0-100 pg/mL Triglycerides Level 287 H < 150 mg/dL Cholesterol Level 182 < 200 mg/dL LDL Cholesterol 109 H < 100 mg/dL HDL Cholesterol 37 L 40-59 mg/dL Lipase 83 H 12-53 U/L Vitamin B12 Level 479 211-911 pg/mL Vitamin D 25-Hydroxy 30.9 30.0-100 ng/mL Thyroid Stimulating Hormone (TSH) 4.24 0.55-4.78 uIU/mL SEPSIS Sepsis Screen Date sepsis recognized/suspect: Jan 01, 2025 Time Sepsis recognized/suspect: 147 Recent Procedure: No On Antibiotic Therapy: No Respiratory Rate >20: No Heart Rate >90: No Temp<36 C (96.8 F) or >38.3 C: No SBP <90 or MAP <65 mmHG: No New Acute Mental Status Change: No Is the patient on CPAP, BIPAP,: No Physician Orders Electrocardigram (01/01/25 01:51) Electrocardigram (01/01/25 02:51) Electrocardigram (01/01/25 04:51) Chest Xray 1 View (01/01/25 01:59) Vital Signs Q1HR (01/01/25 01:59) Saline Lock (01/01/25 01:59) Executor Of Estate (01/01/25 ) Chst Ab Pel Wo Con-No Iv/Oral (01/01/25 01:59) Urinalysis (01/01/25 05:10) Drug Screen (01/01/25 05:10) Blood Culture (01/01/25 05:10) Urine Bacterial Culture (01/01/25 05:10) Admit (01/01/25 06:32) Code Status (01/01/25 06:32) Acetaminophen Tablet (Tylenol Tablet) (01/01/25 06:45) Complete Blood Count (01/02/25 04:00) Comprehensive Metabolic Panel (01/02/25 04:00) Npo (Nothing By Mouth) Diet (01/01/25 Breakfast) Echo 2d Mode Cardiac Dop (01/01/25 06:32) Morphine Sulfate Injection (01/01/25 06:45) Enoxaparin Sodium (Lovenox) (01/01/25 10:00) Nitroglycerin Sublingual (Ntrostat Subli (01/01/25 06:45) Morphine Sulfate Injection (01/01/25 06:45) Oxygen By Nasal Cannula (01/01/25 06:32) Stat Ekg For Chest Pain (01/01/25 06:32) Notify Md Of Changes From Base (01/01/25 06:32) Violin Restorer For 24 Hours (01/01/25 06:32) Emergency Dysrhythmia Protocol (01/01/25 06:32) Rhythm Strips Once Every Shift (01/01/25 06:32) Ceftriaxone 1gm/50ml (Rocephin) (01/01/25 09:00) Metronidazole 500mg/100ml (Flagyl 500mg/ (01/01/25 14:00) Pantoprazole (Protonix) (01/01/25 10:00) Multiple Vitamin Tablet (Mvi Tab) (01/01/25 10:00) * Surgical Consult (01/01/25 ) Aspirin Tablet (01/01/25 10:00) Atorvastatin (Lipitor) (01/01/25 22:00) Sodium Chloride 0.9% (01/01/25 06:45) Sodium Chloride 0.9% (01/01/25 06:45) Thiamine Inj (01/02/25 10:00) Vital Signs Date Time Temp Pulse Resp B/P (MAP) Pulse Ox O2 Delivery O2 Flow Rate FiO2 01/01/25 04:31 70 18 130/70 01/01/25 03:33 64 18 146/105 01/01/25 03:30 98.6 64 16 146/105 (119) 95 98.6 01/01/25 02:11 60 01/01/25 01:48 60 01/01/25 01:48 97.8 59 16 147/81 99 97.8 Laboratory Tests Test 01/01/25 02:12 01/01/25 06:00 White Blood Count 10.1 10^3/uL (4.4-10.8) Lactic Acid Level 1.8 mmol/L (0.4-2.0) Medications Medications Dose Ordered Sig/Maria G Route Start Time Stop Time Status Last Admin Dose Admin Morphine Sulfate 2 mg ONCE ONCE IV 01/01/25 02:00 01/01/25 02:02 DC 01/01/25 03:33 2 MG Assessment/Plan Assessment/Plan Probable acute cholecystitis versus symptomatic cholelithiasis Acute diverticulitis CT abdomen shows acute uncomplicated proximal sigmoid diverticulitis, cholelithiasis and gallbladder distention Blood culture ordered Start IV l ceftriaxone and metronidazole Pain management and IV maintenance fluids Monitor on telemetry Transaminitis Elevated AST, ALT Bilateral nephrolithiasis Monitor Currently on IV fluids Pancreatitis, ruled out Elevated lipase CT abdomen shows normal pancreatic anatomy Alcohol use disorder Rule out Alcohol withdrawal CIWA score 2 points with mild nausea, mild headache Monitor for signs of acute alcohol withdrawal Drug screen, Blood alcohol levels ordered Ruled out acute coronary syndrome History of stroke History of CAD with [place] Patient's EKG showed sinus bradycardia with RBBB, troponin x2 negative, non cardiac chest pain. Ruled out acute coronary syndrome Last echocardiogram on 10/2024: Aortic root enlargement, left atrial en largement, RV enlargement, LVEF 60%, normal RV function, moderate MR Hypercholesteremia Labs show elevated triglycerides, LDL Lifestyle modification DIET: NPO DVT PROPHYLAXIS: Lovenox GI PROPHYLAXIS: Protonix CODE STATUS: Goals of care discussed with patient at bedside for more than 35 minutes. Full code DISPOSITION: Med/surge Patient's status and plan discussed with the patient. Case discussed with Dr. Hussein. Plan discussed with: Patient, Other (Nurses) Date of Service: Jan 01, 2025 Billing Provider: LEIGH HUSSEIN MD Common Visit Codes: 96209-THNXPUE INP/OBS CARE (HIGH) Secondary Visit Codes: 20624-HUXIATRU CARE PLAN 30 MINUTES BENIGNO CHURCHILL RESIDENT Jan 01, 2025 06:56 JOSIE SIN RESIDENT Jan 01, 2025 08:26
[2025-01-01] MEDS: PANTOPRAZOLE 40 MG/10 ML VIAL INJ IV SCH (07:09)
[2025-01-01] MEDS: THIAMINE 100mg/ml INJ (200mg/2ml VIAL) IV ONE (07:09)
[2025-01-01] MEDS: ENOXAPARIN SOD 40 MG/0.4 ML SYRINGE SC SCH (07:10)
[2025-01-01] MEDS: MULTIPLE VITAMIN TAB PO SCH (07:10)
[2025-01-01] MEDS: hydrALAZINE HCL 20 MG/ML VL ONE (07:26)
[2025-01-01 08:11] LABS: Urine Protein, UAD TRACE (Negative)
[2025-01-01 08:17] LABS: Opiate Scree,Urine Pos (NEGATIVE)
[2025-01-01 08:19] LABS: Amphetamine Screen, Urine Neg (NEGATIVE); Barbiturate Scree,Urine Neg (NEGATIVE); Benzodiazephine Screen, Urine Neg (NEGATIVE); Cannabinoid Screen, Urine Neg (NEGATIVE); Cocaine Screen, Urine Neg (NEGATIVE); Phencyclidine Screen, Urine Neg (NEGATIVE)
[2025-01-01] MEDS: SODIUM CHLORIDE 0.9% 500 ML IV ONE (09:06)
[2025-01-01] MEDS: FOLIC ACID 1 MG in D5W 5% 50 ML INJ SCH (10:00)
--- NOTE | 2025-01-01 10:06 | DVH ---
CLINICAL HISTORY: confusion TECHNIQUE: Helical scanning was performed of the head from the skull base to the vertex. Multiplanar reconstructions were performed. This exam was performed according to our departmental dose optimizat ion program. Up-to-date CT equipment and radiation dose reduction techniques are utilized as appropri ate. CTDI 56 DLP 988 COMPARISON: CT HEAD WITHOUT CONTRAST on DOS: 08/24/23, CT CERVICAL WITHOUT CONTRAST on DOS: 08/24/23, C T HEAD WITHOUT CONTRAST on DOS: 05/17/23 FINDINGS: There is no evidence for acute intracranial hemorrhage, acute ischemic changes, mass, mass effect, or extra-axial fluid collection. There is no hydrocephalus or midline shift. There is no effacement of the cerebral sulci and basal subarachnoid cisterns. The del rosario-white matter differentiation is well jordi ntained. There is a moderate size old left MCA territory infarct with encephalomalacia involving the left fron heather, parietal, and anterolateral temporal lobes as well as basal ganglia. There is ex vacuo dilatatio n of the left lateral ventricle. The imaged paranasal sinuses demonstrate minimal scattered mucoperiosteal thickening. IMPRESSION: NO ACUTE INTRACRANIAL ABNORMALITY SEEN.
[2025-01-01] MEDS: POTASSIUM PHOSPHATE 22 MEQ in SODIUM CHL 0.9% 100 ML IV ONE (11:55)
[2025-01-01] MEDS ORDERED: hydrALAZINE HCL 20 MG/ML VL IV SCH (12:00)
--- NOTE | 2025-01-01 12:46 | DVH ---
INDICATION: epigastric pain, possible cholecystitis TECHNIQUE: Multiple real-time sonographic images were obtained of the right upper quadrant. COMPARISON: None FINDINGS: The liver demonstrates increased echotexture without focal mass lesions. The liver measures 17 cm. There is no intrahepatic or extrahepatic ductal dilatation. The common duct measures 5 mm. The gallbladder is without evidence of stone or sludge. The gallbladder wall measures 4 mm and is wi thin normal limits. The right kidney measures 12 cm. The right kidney is normal in contour, size, and shape. The echogen icity is normal. There is no hydronephrosis. The pancreas is not well visualized due to overlying bowel gas. IMPRESSION: No sonographic evidence of gallstones or acute cholecystitis. Hepatic steatosis.
--- NOTE | 2025-01-01 13:08 | DVHINCON2 ---
Date of service: Jan 01, 2025 History of Present Illness 64-year-old male with a history of CAD status post OH and CVA admitted secondary to sudden onset of epigastric abdominal pain without fevers, chills, nausea or vomiting. Currently patient denies any abdominal pain. Past Medical History CAD status post OH. CVA. Hypertension. Past Surgical History Denies any abdominal surgeries Family History: Cardiovascular disease G8 FATHER FH: alcoholism G8 MOTHER G8 FATHER Hypercholesterolemia G8 FATHER Hypertension G8 FATHER Family History Noncontributory Social History Denies tobacco or IV drug use. Reports occasional alcohol. Allergies: Coded Allergies: NO KNOWN ALLERGIES (Unverified , 05/17/23) Home Meds Active Scripts Atorvastatin Calcium (Lipitor) 40 Mg Tab, 1 TAB PO QPM, #90 TAB 1 Refill Prov:JAY CERVANTES MD 10/21/24 Aspirin (ASPIRIN 81) 81 Mg Tab, 81 MG PO DAILY, #90 TAB Prov:JAY CERVANTES MD 10/21/24 Folic Acid (Folic Acid) 1 Mg Tab, 1 MG PO DAILY, #30 TAB Prov:JAY CERVANTES MD 10/21/24 Thiamine HCl (Thiamine Hydrochloride) 100 Mg Tab, 100 MG PO DAILY, #30 TAB Prov:JAY CERVANTES MD 10/21/24 Atorvastatin Calcium (Lipitor) 40 Mg Tab, 1 TAB PO QPM, #90 TAB 1 Refill Prov:CHAYO RICHARDS MD 05/22/23 Aspirin (Aspir-81) 81 Mg Tab, 1 TAB PO DAILY, #30 TAB 5 Refills Prov:CHAYO RICHARDS MD 05/22/23 Docusate Sodium (Docusate Sodium) 100 Mg Cap, 100 MG PO BIDPRN PRN, #60 CAP Prov:CHAYO RICHARDS MD 05/20/23 Hydrocodone-Acetaminophen (Hydrocodone Bitartrate/AC 5-325 mg) 1 Tab Tab, 1 TAB PO Q4HP PRN, #20 TAB Prov:CHAYO RICHARDS MD 05/20/23 Amoxicillin & Pot Clavulanate (AUGMENTIN TABLET) 875 Mg Tb, 875 MG PO BID, #20 TAB Prov:CHAYO RICHARDS MD 05/20/23 Current Medications Current Medications Medications (Trade) Dose Ordered Sig/Maria G Route PRN Reason Start Time Stop Time Status Last Admin Acetaminophen (Tylenol Tablet) 325 mg Q4HP PRN PO MILD PAIN (1-3 PAIN SCALE) 01/01/25 06:45 01/01/25 08:30 DC Morphine Sulfate 2 mg Q4HPRN PRN IV SEVERE PAIN (7-10 PAIN SCALE) 01/01/25 06:45 Enoxaparin Sodium (Lovenox) 40 mg DAILY SC 01/01/25 10:00 01/01/25 07:10 Nitroglycerin (Ntrostat Sublingual) 0.4 mg Q5MINP PRN SL FOR CHEST PAIN 01/01/25 06:45 01/01/25 08:30 DC Morphine Sulfate 2 mg Q30M PRN IV FOR CHEST PAIN 01/01/25 06:45 01/01/25 08:30 DC Ceftriaxone Sodium 50 ml @ 100 mls/hr DAILY@09 IV 01/01/25 09:00 01/01/25 07:10 Metronidazole 100 ml @ 100 mls/hr Q8HR IV 01/01/25 14:00 Pantoprazole Sodium (Protonix) 40 mg DAILY IV 01/01/25 10:00 01/01/25 07:09 Thiamine HCl 100 mg DAILY IV 01/02/25 10:00 Multivitamins (Mvi Tab) 1 tab DAILY PO 01/01/25 10:00 01/01/25 08:30 DC 01/01/25 07:10 Aspirin 81 mg DAILY PO 01/01/25 10:00 01/01/25 08:30 DC 01/01/25 07:10 Atorvastatin Calcium (Lipitor) 20 mg HS PO 01/01/25 22:00 01/01/25 08:30 DC Sodium Chloride 1,000 ml @ 100 mls/hr Q10H IV 01/01/25 06:45 01/01/25 06:45 Hydralazine HCl (Apresoline Injection) 10 mg Q6HR IV 01/01/25 12:00 Tamsulosin HCl (Flomax) 0.4 mg QPM PO 01/01/25 18:00 Folic Acid 1 mg/ Dextrose 50.2 ml @ 200.8 mls/ hr DAILY INJ 01/01/25 10:00 Aspirin 81 mg DAILY PO 01/01/25 10:00 Atorvastatin Calcium (Lipitor) 40 mg HS PO 01/01/25 22:00 Vital Signs Vital Signs Date Time Temp Pulse Resp B/P (MAP) Pulse Ox O2 Delivery O2 Flow Rate FiO2 01/01/25 13:00 98.9 81 17 136/99 (111) 95 98.9 01/01/25 10:07 Room Air* 0 21 Physical Exam GEN: Age-appropriate male in no acute distress. Alert. HEENT: Normocephalic atraumatic. Moist mucous membranes. Anicteric sclerae. CV: RRR Respiratory: CTAB ABD: Soft. Nontender nondistended. Abdominal ultrasound: No evidence of gallstones or acute cholecystitis. Common bile duct is [address] of the abdomen and pelvis: Uncomplicated proximal sigmoid diverticulitis. Labs/Diagnostic Data Labs Test 01/01/25 11:32 01/01/25 10:51 01/01/25 07:56 01/01/25 07:55 Range/Units Troponin I High Sensitivity < 3 L </=54 ng/L Plasma/Serum Blood Alcohol < 3.0 <10 mg/dL Urine Opiates Screen Pos NEGATIVE Urine Fentanyl Screen Neg NEGATIVE Urine Barbiturates Screen Neg NEGATIVE Urine Phencyclidine Screen Neg NEGATIVE Urine Amphetamines Screen Neg NEGATIVE Urine Benzodiazepines Screen Neg NEGATIVE Urine Cocaine Screen Neg NEGATIVE Urine Cannabinoids Screen Neg NEGATIVE Urine Color Yellow Yellow Urine Clarity Clear Clear Urine pH 6.0 5.0-9.0 Urine Specific [place] 1.026 1.001-1.035 Urine Protein Trace H Negative Urine Ketones Negative Negative Urine Blood Negative Negative /uL Urine Nitrite Negative Negative Urine Bilirubin Negative Negative Urine Urobilinogen Normal Negative mg/dL Urine Leukocyte Esterase Negative Negative /uL Urine RBC <1 0 - 3 /hpf Urine Microscopic WBC 1 0-3 /HPF Urine Squamous Epithelial Cells None seen <5 /hpf Urine Bacteria None seen None Seen /hpf Urine Mucus Few None Seen Urine Glucose Normal Normal mg/dL Test 01/01/25 06:00 01/01/25 02:12 Range/Units Lactic Acid Level 1.8 0.4-2.0 mmol/L White Blood Count 10.1 4.4-10.8 10^3/uL Red Blood Count 3.93 L 4.5-5.90 10^6/uL Hemoglobin 13.9 13.5-17.5 g/dL Hematocrit 39.9 L 41.0-53.0 % Mean Corpuscular Volume 101.8 H 80.0-100.0 fL Mean Corpuscular Hemoglobin 35.4 H 28.0-32.0 pg Mean Corpuscular Hemoglobin Concent 34.8 32.0-36.0 g/dL Red Cell Distribution Width 15.4 H 11.8-14.3 % Platelet Count 186 140-450 10^3/uL Mean Platelet Volume 9.0 6.9-10.8 fL Neutrophils (%) (Auto) 75.1 37.0-80.0 % Lymphocytes (%) (Auto) 16.9 10.0-50.0 % Monocytes (%) (Auto) 6.1 0.0-12.0 % Eosinophils (%) (Auto) 1.6 0.0-7.0 % Basophils (%) (Auto) 0.3 0.0-2.0 % Neutrophils # (Auto) 7.6 1.6-8.6 10 ^3/uL Lymphocytes # (Auto) 1.7 0.4-5.4 10 ^3/uL Monocytes # (Auto) 0.6 0-1.3 10 ^3/uL Eosinophils # (Auto) 0.2 0-0.8 10 ^3/uL Basophils # (Auto) 0 0-0.2 10 ^3/uL Nucleated Red Blood Cells 0.0 % Prothrombin Time 10.3 9.3-11.8 sec Prothrombin Time INR 0.97 0.9-1.15 Activated Partial Thromboplast Time 25.9 24.5-34.5 SEC Sodium Level 139 136-145 mmol/L Potassium Level 3.8 3.5-5.1 mmol/L Chloride Level 101 98-107 mmol/L Carbon Dioxide Level 27 20-31 mmol/L Anion Gap 11 5-15 Blood Urea Nitrogen 10 9-23 mg/dL Creatinine 0.82 0.700-1.30 mg/dL Glomerular Filtration Rate Calc 99 >90 mL/min BUN/Creatinine Ratio 12.2 10.0-20.0 Serum Glucose 133 H 74-106 mg/dL Hemoglobin A1c 5.5 <5.7 % A1C Calcium Level 9.4 8.7-10.4 mg/dL Phosphorus Level 2.3 L 2.4-5.1 mg/dL Magnesium Level 1.9 1.6-2.6 mg/dL Total Bilirubin 0.4 0.2-1.0 mg/dL Aspartate Amino Transferase (AST) 50 H 13-40 U/L Alanine Aminotransferase (ALT) 51 H 7-40 U/L Alkaline Phosphatase 79 46-116 U/L B-Type Natriuretic Peptide 123.14 0-100 pg/mL Triglycerides Level 287 H < 150 mg/dL Cholesterol Level 182 < 200 mg/dL LDL Cholesterol 109 H < 100 mg/dL HDL Cholesterol 37 L 40-59 mg/dL Lipase 83 H 12-53 U/L Vitamin B12 Level 479 211-911 pg/mL Vitamin D 25-Hydroxy 30.9 30.0-100 ng/mL Thyroid Stimulating Hormone (TSH) 4.24 0.55-4.78 uIU/mL Assessment 1. Uncomplicated proximal sigmoid diverticulitis. Plan/Recommendation 1. Clear liquid diet. If he tolerates a liquid diet okay for discharge from surgery point of view with oral antibiotics for next 3-5 days. 2. Also highly recommended to the patient to get outpatient colonoscopy once the diverticulitis resolved. Patient agreed. Plan discussed with: Patient GABBIE PRASAD MD Jan 01, 2025 13:08
--- NOTE | 2025-01-01 15:12 | DVHINCON2 ---
Date Seen: Jan 01, 2025 Referring Physician MD Jazzy Reason for Consultation Chest pain History of Present Illness This is a 64-year-old man who presented to the emergency room via EMS with a chief complaint of chest pain since last night. The patient reports he had dinner and went to bed waking up with chest pain described as stabbing in nature, substernal, nonradiating, and consistent for which he took antacid medications with no relief of symptoms and prompting to call 911. EN route to the hospital he was medicated with ASA 324 mg p.o. x1 and NTG SL 0.4 mg x1 with no relief of symptoms. He underwent a 12 lead electrocardiogram revealing a sinus rhythm with a associated right bundle branch block. Serial troponin levels are negative. Significant medical history includes cerebrovascular accident x2, hypertension, dyslipidemia, obesity, and recent history of alcohol dependence. Of note, previous providers have reported history of CAD which the patient denies neither undergoing invasive cardiac procedures in the past. Past Medical History Past medical history reviewed. No other significant than mentioned above. Past Surgical History Past Surgical history reviewed. No other significant than mentioned above. Family History: Cardiovascular disease G8 FATHER FH: alcoholism G8 MOTHER G8 FATHER Hypercholesterolemia G8 FATHER Hypertension G8 FATHER Family History Family history reviewed. Social History Denies the use of illicit drugs, alcohol, or tobacco use. States he quit alcohol approximately a month ago. Allergies: Coded Allergies: NO KNOWN ALLERGIES (Unverified , 05/17/23) Home Meds Active Scripts Atorvastatin Calcium (Lipitor) 40 Mg Tab, 1 TAB PO QPM, #90 TAB 1 Refill Prov:JAY CERVANTES MD 10/21/24 Aspirin (ASPIRIN 81) 81 Mg Tab, 81 MG PO DAILY, #90 TAB Prov:JAY CERVANTES MD 10/21/24 Folic Acid (Folic Acid) 1 Mg Tab, 1 MG PO DAILY, #30 TAB Prov:JAY CERVANTES MD 10/21/24 Thiamine HCl (Thiamine Hydrochloride) 100 Mg Tab, 100 MG PO DAILY, #30 TAB Prov:JAY CERVANTES MD 10/21/24 Atorvastatin Calcium (Lipitor) 40 Mg Tab, 1 TAB PO QPM, #90 TAB 1 Refill Prov:CHAYO RICHARDS MD 05/22/23 Aspirin (Aspir-81) 81 Mg Tab, 1 TAB PO DAILY, #30 TAB 5 Refills Prov:CHAYO RICHARDS MD 05/22/23 Docusate Sodium (Docusate Sodium) 100 Mg Cap, 100 MG PO BIDPRN PRN, #60 CAP Prov:CHAYO RICHARDS MD 05/20/23 Hydrocodone-Acetaminophen (Hydrocodone Bitartrate/AC 5-325 mg) 1 Tab Tab, 1 TAB PO Q4HP PRN, #20 TAB Prov:CHAYO RICHARDS MD 05/20/23 Amoxicillin & Pot Clavulanate (AUGMENTIN TABLET) 875 Mg Tb, 875 MG PO BID, #20 TAB Prov:CHAYO RICHARDS MD 05/20/23 Home Meds Denies any prescribed home medications. Current Medications Current Medications Medications (Trade) Dose Ordered Sig/Maria G Route PRN Reason Start Time Stop Time Status Last Admin Acetaminophen (Tylenol Tablet) 325 mg Q4HP PRN PO MILD PAIN (1-3 PAIN SCALE) 01/01/25 06:45 01/01/25 08:30 DC Morphine Sulfate 2 mg Q4HPRN PRN IV SEVERE PAIN (7-10 PAIN SCALE) 01/01/25 06:45 Enoxaparin Sodium (Lovenox) 40 mg DAILY SC 01/01/25 10:00 01/01/25 07:10 Nitroglycerin (Ntrostat Sublingual) 0.4 mg Q5MINP PRN SL FOR CHEST PAIN 01/01/25 06:45 01/01/25 08:30 DC Morphine Sulfate 2 mg Q30M PRN IV FOR CHEST PAIN 01/01/25 06:45 01/01/25 08:30 DC Ceftriaxone Sodium 50 ml @ 100 mls/hr DAILY@09 IV 01/01/25 09:00 01/01/25 07:10 Metronidazole 100 ml @ 100 mls/hr Q8HR IV 01/01/25 14:00 Pantoprazole Sodium (Protonix) 40 mg DAILY IV 01/01/25 10:00 01/01/25 07:09 Thiamine HCl 100 mg DAILY IV 01/02/25 10:00 Multivitamins (Mvi Tab) 1 tab DAILY PO 01/01/25 10:00 01/01/25 08:30 DC 01/01/25 07:10 Aspirin 81 mg DAILY PO 01/01/25 10:00 01/01/25 08:30 DC 01/01/25 07:10 Atorvastatin Calcium (Lipitor) 20 mg HS PO 01/01/25 22:00 01/01/25 08:30 DC Sodium Chloride 1,000 ml @ 100 mls/hr Q10H IV 01/01/25 06:45 01/01/25 06:45 Hydralazine HCl (Apresoline Injection) 10 mg Q6HR IV 01/01/25 12:00 Tamsulosin HCl (Flomax) 0.4 mg QPM PO 01/01/25 18:00 Folic Acid 1 mg/ Dextrose 50.2 ml @ 200.8 mls/ hr DAILY INJ 01/01/25 10:00 Aspirin 81 mg DAILY PO 01/01/25 10:00 Atorvastatin Calcium (Lipitor) 40 mg HS PO 01/01/25 22:00 Review of Systems Constitutional: No symptom reported Ears, Nose, & Throat: No symptom reported Eyes: No symptom reported Neurological: No symptoms reported Pulmonary/Respiratory: No symptom reported Cardiovascular: Chest pain Gastrointestinal: No symptom reported Genitourinary: No symptom reported Musculoskeletal: No symptom reported Skin: No symptom reported Psychiatric: No symptom reported Endocrine: No symptom reported Hemotologic/Lymphatic: No symptom reported Vital Signs Vital Signs Date Time Temp Pulse Resp B/P (MAP) Pulse Ox O2 Delivery O2 Flow Rate FiO2 01/01/25 13:00 98.9 81 17 136/99 (111) 95 98.9 01/01/25 10:07 Room Air* 0 21 Physical Exam General Appearance: Cooperative. Well developed. Obese. In no acute distress Head Exam: Normal inspection Neck Exam: Normal inspection. Non-tender. Normal alignment Pulmonary/Respiratory: Chest non-tender. Clear bilateral breath sounds Cardiovascular/Chest: Regular rate and rhythm. S1, S2. Sinus rhythm with a RBBB. No murmurs. No JVD. Peripheral Pulses: 2+ Radial (R). 2+ Radial (L). 2+ Pedal (R). 2+ Pedal (L) Abdominal Exam: Normal bowel sounds. Soft Ankle Exam: Negative ankle edema Lower extremities: Negative lower extremity edema Neuro/Mental Status: A&O x4. Coherent Thoughts/Psych: Normal thought pattern. Anxious Appearance: In no acute distress Skin Exam: Normal inspection. Normal color. Warm. Dry Labs/Diagnostic Data Labs Test 01/01/25 11:32 01/01/25 10:51 01/01/25 07:56 01/01/25 07:55 Range/Units Troponin I High Sensitivity < 3 L </=54 ng/L Plasma/Serum Blood Alcohol < 3.0 <10 mg/dL Urine Opiates Screen Pos NEGATIVE Urine Fentanyl Screen Neg NEGATIVE Urine Barbiturates Screen Neg NEGATIVE Urine Phencyclidine Screen Neg NEGATIVE Urine Amphetamines Screen Neg NEGATIVE Urine Benzodiazepines Screen Neg NEGATIVE Urine Cocaine Screen Neg NEGATIVE Urine Cannabinoids Screen Neg NEGATIVE Urine Color Yellow Yellow Urine Clarity Clear Clear Urine pH 6.0 5.0-9.0 Urine Specific [place] 1.026 1.001-1.035 Urine Protein Trace H Negative Urine Ketones Negative Negative Urine Blood Negative Negative /uL Urine Nitrite Negative Negative Urine Bilirubin Negative Negative Urine Urobilinogen Normal Negative mg/dL Urine Leukocyte Esterase Negative Negative /uL Urine RBC <1 0 - 3 /hpf Urine Microscopic WBC 1 0-3 /HPF Urine Squamous Epithelial Cells None seen <5 /hpf Urine Bacteria None seen None Seen /hpf Urine Mucus Few None Seen Urine Glucose Normal Normal mg/dL Test 01/01/25 06:00 01/01/25 02:12 Range/Units Lactic Acid Level 1.8 0.4-2.0 mmol/L White Blood Count 10.1 4.4-10.8 10^3/uL Red Blood Count 3.93 L 4.5-5.90 10^6/uL Hemoglobin 13.9 13.5-17.5 g/dL Hematocrit 39.9 L 41.0-53.0 % Mean Corpuscular Volume 101.8 H 80.0-100.0 fL Mean Corpuscular Hemoglobin 35.4 H 28.0-32.0 pg Mean Corpuscular Hemoglobin Concent 34.8 32.0-36.0 g/dL Red Cell Distribution Width 15.4 H 11.8-14.3 % Platelet Count 186 140-450 10^3/uL Mean Platelet Volume 9.0 6.9-10.8 fL Neutrophils (%) (Auto) 75.1 37.0-80.0 % Lymphocytes (%) (Auto) 16.9 10.0-50.0 % Monocytes (%) (Auto) 6.1 0.0-12.0 % Eosinophils (%) (Auto) 1.6 0.0-7.0 % Basophils (%) (Auto) 0.3 0.0-2.0 % Neutrophils # (Auto) 7.6 1.6-8.6 10 ^3/uL Lymphocytes # (Auto) 1.7 0.4-5.4 10 ^3/uL Monocytes # (Auto) 0.6 0-1.3 10 ^3/uL Eosinophils # (Auto) 0.2 0-0.8 10 ^3/uL Basophils # (Auto) 0 0-0.2 10 ^3/uL Nucleated Red Blood Cells 0.0 % Prothrombin Time 10.3 9.3-11.8 sec Prothrombin Time INR 0.97 0.9-1.15 Activated Partial Thromboplast Time 25.9 24.5-34.5 SEC Sodium Level 139 136-145 mmol/L Potassium Level 3.8 3.5-5.1 mmol/L Chloride Level 101 98-107 mmol/L Carbon Dioxide Level 27 20-31 mmol/L Anion Gap 11 5-15 Blood Urea Nitrogen 10 9-23 mg/dL Creatinine 0.82 0.700-1.30 mg/dL Glomerular Filtration Rate Calc 99 >90 mL/min BUN/Creatinine Ratio 12.2 10.0-20.0 Serum Glucose 133 H 74-106 mg/dL Hemoglobin A1c 5.5 <5.7 % A1C Calcium Level 9.4 8.7-10.4 mg/dL Phosphorus Level 2.3 L 2.4-5.1 mg/dL Magnesium Level 1.9 1.6-2.6 mg/dL Total Bilirubin 0.4 0.2-1.0 mg/dL Aspartate Amino Transferase (AST) 50 H 13-40 U/L Alanine Aminotransferase (ALT) 51 H 7-40 U/L Alkaline Phosphatase 79 46-116 U/L B-Type Natriuretic Peptide 123.14 0-100 pg/mL Triglycerides Level 287 H < 150 mg/dL Cholesterol Level 182 < 200 mg/dL LDL Cholesterol 109 H < 100 mg/dL HDL Cholesterol 37 L 40-59 mg/dL Lipase 83 H 12-53 U/L Vitamin B12 Level 479 211-911 pg/mL Vitamin D 25-Hydroxy 30.9 30.0-100 ng/mL Thyroid Stimulating Hormone (TSH) 4.24 0.55-4.78 uIU/mL Assessment Chest pain rule out coronary artery disease History of CVAs x2 Hypertension Dyslipidemia Recent alcohol dependence Obesity Plan/Recommendation (Dr. Welch) A recent transthoracic echocardiogram revealed an LVEF of 60% with normal RV function. We will continue further cardiac evaluation with a Cardiolite stress test to rule out coronary ischemia. In the meantime, continue single antiplatelet therapy, lipid lowering agent, and blood pressure control. Continue DVT/VTE prophylaxis. Monitor ECG changes closely and notify accordingly. Thank you for allowing us to participate in this patient's care. Please call if you have any questions or concerns. This medical document was created using an electronic medical record system with voice recognition software and computerized dictation system. Although this document has been carefully reviewed, there might still be some phonetic and typographical errors. Occasional wrong-word or ``sound-alike substitutions may have occurred due to the inherent limitations of voice recognition software. These areas are purely typographical due to imperfections of the software programs and do not reflect any compromise in the patient's medical care. Please read the chart carefully and recognize, using context, where these substitutions have occurred. Plan discussed with: Patient, Other NYHA Physical activity limitations: NA Date of Service: Jan 01, 2025 Billing Provider: MAXIMINO VALENZUELA Cardiology Common Codes: [id number] INP/OBS CARE (High) MAXIMINO VALENZUELA Jan 01, 2025 15:12
[2025-01-01] MEDS: SUCRALFATE 1 GM/10 ML ORAL SUSP PO ONE (15:47)
--- NOTE | 2025-01-01 16:24 | DVHPNRES ---
Progress Note Date Seen: Jan 01, 2025 Resident Creating Document: KAYKAY WEBER RESIDENT Medical Necessity Reason Pt with a Central, PICC or Fol: No Subjective Review of Systems This is a 64-year-old male with past medical history of hypertension, coronary artery disease with KS, stroke, presented to the ER with chief complain of epigastrium and chest pain. He is a poor historian. He stated pain started suddenly around 10:00 p.m. at night yesterday, described as stabbing, 10 on 10, nonradiating, no aggravating or relieving factors. Pain is associated with nausea, dizziness without loss of consciousness, subjective fever, chills, numbness of the right side. He also complained of diarrhea, episodes daily for 3 days, stools are watery in consistency without any blood. He denies eating at a food truck, intake of raw sea foods, recent travel and sick contacts. PMHx: Hypertension, CAD with KS, stroke (unable to provide further details in the past history) PSHx: No surgeries in past Social history: Alcohol use, 500 mL vodka daily ( reportedly last consumed 2 days back), no smoking or recreational drug use. Lives in home with family. Full code. Next of kin brother Home medication: Aspirin, muscle relaxant, pain medication The patient was seen and examined at bedside. Overnight events were reviewed. The patient reports improvement in his chest pain. He says his last alcohol drink was 2 days back. He reports feeling nausea, anxiety, tremor on outstretched hands, auditory hallucinations and sweating. He denies any other complaints. Objective vital signs Vital Sign Date Time Temp Pulse Resp B/P (MAP) Pulse Ox O2 Delivery O2 Flow Rate FiO2 01/01/25 13:00 98.9 81 17 136/99 (111) 95 98.9 01/01/25 10:07 Room Air* 0 21 medications Current Medications Medications Dose Ordered Sig/Maria G Route Start Time Stop Time Status Last Admin Dose Admin Morphine Sulfate 2 mg Q4HPRN PRN IV 01/01/25 06:45 Enoxaparin Sodium 40 mg DAILY SC 01/01/25 10:00 01/01/25 07:10 40 MG Ceftriaxone Sodium 50 ml @ 100 mls/hr DAILY@09 IV 01/01/25 09:00 01/01/25 07:10 100 MLS/HR Metronidazole 100 ml @ 100 mls/hr Q8HR IV 01/01/25 14:00 Pantoprazole Sodium 40 mg DAILY IV 01/01/25 10:00 01/01/25 07:09 40 MG Thiamine HCl 100 mg DAILY IV 01/02/25 10:00 Sodium Chloride 1,000 ml @ 100 mls/hr Q10H IV 01/01/25 06:45 01/01/25 06:45 100 MLS/HR Tamsulosin HCl 0.4 mg QPM PO 01/01/25 18:00 Folic Acid 1 mg/ Dextrose 50.2 ml @ 200.8 mls/ hr DAILY INJ 01/01/25 10:00 Aspirin 81 mg DAILY PO 01/01/25 10:00 01/01/25 15:47 81 MG Atorvastatin Calcium 40 mg HS PO 01/01/25 22:00 Metoprolol Tartrate 25 mg BID PO 01/01/25 22:00 Lisinopril 20 mg DAILY PO 01/02/25 10:00 Sucralfate 1 gm BID@0600,2200 PO 01/01/25 22:00 Examination Pt is lying on bed General Appearance: Alert, Oriented X3, Cooperative, Mild distress HEENT: Atraumatic, Mucous membranes moist/pink Respiratory: Clear to auscultation, Normal air movement, No added sounds Cardiovascular: Regular rate, Normal S1, Normal S2, No murmurs Abdominal/ : Active bowel sounds, Soft, no distention, no tenderness Extremities: No edema, Normal pulses, No tenderness/swelling, mild weakness on the right extremities. Skin: No Significant rash, except past surgical scars Neuro: Normal speech, sensorimotor deficits none Psych/Mental Status: Mental status NL, Mood NL Nurse was there as director peoplesoft during examination laboratory and microbiology Laboratory Tests 01/01/25 02:12 Test 01/01/25 02:12 Range/Units Serum Glucose 133 H 74-106 mg/dL Labs and/or images reviewed: Labs reviewed by me, Image(s) reviewed by me Problem List/Assessment/Plan Problem List/Assessment/Plan Acute cholecystitis versus symptomatic cholelithiasis Acute diverticulitis Gastritis CT abdomen shows acute uncomplicated proximal sigmoid diverticulitis, cholelithiasis and gallbladder distention Blood culture IV ceftriaxone and metronidazole Pain management and IV maintenance fluids Monitor on telemetry Sucralfate Acute toxic vs metabolic encephalopathy Alcohol use disorder Alcohol withdrawal CIWA score 6 CIWA protocol Drug screen Blood alcohol Folic acid and thiamine given. Ordered head CT without contrast Counseled on alcohol use cessation for 22 minutes Uncontrolled hypertension Lisinopril 20 mg daily p.o. Metoprolol tartrate 25 mg Transaminitis Elevated AST, ALT Bilateral nephrolithiasis Monitor Currently on IV fluids Pancreatitis, ruled out Elevated lipase CT abdomen shows normal pancreatic anatomy Chest pain; to rule out acute coronary syndrome History of stroke History of CAD with [place] Patient's EKG showed sinus bradycardia with RBBB, troponin x2 negative, noncardiac chest pain. Ruled out acute coronary syndrome Last echocardiogram on 10/2024: Aortic root enlargement, left atrial enlargement, RV enlargement, LVEF 60%, normal RV function, moderate MR Cardiology consultation appreciated: Cardiolite stress test ordered. Continue single antiplatelet therapy, lipid lowering agent, and blood pressure control. Hypercholesteremia Labs show elevated triglycerides, LDL Lifestyle modification Atorvastatin 40 mg GI prophylaxis: Pantoprazole DVT prophylaxis: Lovenox Diet: Clear liquid Goals of care discussed with the patient for 20 minutes: Full code status Case discussed with Dr. Dobbins , patient and RN Plan discussed with: Patient, Other (RN) Date of Service: Jan 01, 2025 Billing Provider: PAULIE DOBBINS MD Common Visit Codes: [id number] INP/OBS CARE(HIGH) Secondary Visit Codes: [id number] CHNG SMOKING >10MIN (Counseled on alcohol use cessation for 22 minutes), [id number] CARE PLAN 30 MINUTES (20 minutes) Addendum Addendum Addendum I was physically present for the kimbrough portions of the service provided to patient by THE RESIDENT. I have reviewed the documentation, discussed the case with resident and agree with the resident's documentation except as noted. Also the patient's clinical case was discussed with the patient's nurse. This medical document was created using an electronic medical record system with computerized dictation system. Although this document has been carefully reviewed, there might still be some phonetic and typographical errors. These areas are purely typographical due to imperfections of the software programs, and do not reflect any compromise in the patient's medical care. Late signature. KAYKAY WEBER RESIDENT Jan 01, 2025 16:24 PAULIE DOBBINS MD Jan 04, 2025 05:10
[2025-01-01] MEDS: TAMSULOSIN HYDROCHLORIDE 0.4 MG CAP PO SCH (18:00)
[2025-01-01] MEDS: SUCRALFATE 1 GM/10 ML ORAL SUSP PO SCH (20:55)
[2025-01-01] MEDS: METOPROLOL TARTRATE 25 MG TAB PO SCH (20:56)
[2025-01-01] MEDS: ATORVASTATIN 20 MG TAB PO SCH (20:56)
[2025-01-01] MEDS ORDERED: ATORVASTATIN 20 MG TAB PO SCH (22:00)
[2025-01-02] VITALS (8 sets, daily range): BP systolic 132–150; BP diastolic 87–103; PULSE 54–102; RESP 16–18; TEMP 97.8–98.3; O2SAT 90–96
[2025-01-02 07:11] LABS: Hematocrit 38.4 % (41.0-53.0); Hemoglobin 13.5 g/dL (13.5-17.5); Mean Corpuscular Hemoglobin 35.8 pg (28.0-32.0); Mean Corpuscular Volume 101.8 fL (80.0-100.0); Nucleated Red Blood Cells % 0.0 %
[2025-01-02 07:30] LABS: Albumin 3.7 g/dL (3.2-4.8); Alkaline Phosphatase 70 U/L (46-116); Anion Gap 8 (5-15); BUN/Creatinine Ratio 7.7 (10.0-20.0); Calcium 8.7 mg/dL (8.7-10.4); Carbon Dioxide 26 mmol/L (20-31); Chloride 103 mmol/L (98-107); Glucose 101 mg/dL (74-106); Potassium 3.7 mmol/L (3.5-5.1); Sodium 137 mmol/L (136-145); Total Protein 6.1 g/dL (5.7-8.2)
[2025-01-02 07:31] LABS: Alanine Aminotransferase 55 U/L (7-40); Bilirubin, Total 0.9 mg/dL (0.2-1.0); Blood Urea Nitrogen 6 mg/dL (9-23)
[2025-01-02] MEDS: THIAMINE 100mg/ml INJ (200mg/2ml VIAL) IV SCH (09:53)
--- NOTE | 2025-01-02 09:55 | DVHPN2 ---
Progress Note - Dictate Date Seen: Jan 02, 2025 Medical Necessity Reason Pt with a Central, PICC or Fol: No Subjective E: no major events o/n. denies abd pain. doing well. vital signs Vital Sign Date Time Temp Pulse Resp B/P (MAP) Pulse Ox O2 Delivery O2 Flow Rate FiO2 01/02/25 09:00 98.0 65 16 141/98 (112) 92 98.0 01/01/25 20:00 Room Air* 0 21 Total Intake and Output 01/01/25 01/01/25 01/02/25 15:00 23:00 07:00 Intake Total 1650 ml 1850 ml Output Total 350 ml Balance 1650 ml 1500 ml medications Current Medications Medications Dose Ordered Sig/Maria G Route Start Time Stop Time Status Last Admin Dose Admin Morphine Sulfate 2 mg Q4HPRN PRN IV 01/01/25 06:45 Enoxaparin Sodium 40 mg DAILY SC 01/01/25 10:00 01/01/25 07:10 40 MG Ceftriaxone Sodium 50 ml @ 100 mls/hr DAILY@09 IV 01/01/25 09:00 01/01/25 07:10 100 MLS/HR Metronidazole 100 ml @ 100 mls/hr Q8HR IV 01/01/25 14:00 01/02/25 05:25 100 MLS/HR Pantoprazole Sodium 40 mg DAILY IV 01/01/25 10:00 01/01/25 07:09 40 MG Thiamine HCl 100 mg DAILY IV 01/02/25 10:00 Sodium Chloride 1,000 ml @ 100 mls/hr Q10H IV 01/01/25 06:45 01/02/25 02:56 100 MLS/HR Tamsulosin HCl 0.4 mg QPM PO 01/01/25 18:00 01/01/25 18:00 0.4 MG Folic Acid 1 mg/ Dextrose 50.2 ml @ 200.8 mls/ hr DAILY INJ 01/01/25 10:00 01/01/25 10:00 200.8 MLS/HR Aspirin 81 mg DAILY PO 01/01/25 10:00 01/01/25 15:47 81 MG Atorvastatin Calcium 40 mg HS PO 01/01/25 22:00 01/01/25 20:56 40 MG Metoprolol Tartrate 25 mg BID PO 01/01/25 22:00 01/01/25 20:56 25 MG Lisinopril 20 mg DAILY PO 01/02/25 10:00 Sucralfate 1 gm BID@0600,2200 PO 01/01/25 22:00 01/02/25 05:25 1 GM objective GEN: NAD ABD: soft. NT/ND. laboratory and microbiology Laboratory Tests 01/02/25 06:31 Test 01/02/25 06:31 Range/Units Serum Glucose 101 74-106 mg/dL Assessment/Plan A: 1. Uncomplicated proximal sigmoid diverticulitis. P: 1. stable from surgery POV. surgery signing off. Plan discussed with: Patient GABBIE PRASAD MD Jan 02, 2025 09:55
[2025-01-02] MEDS: LISINOPRIL 20 MG TAB PO SCH (09:56)
--- NOTE | 2025-01-02 11:24 | DVHPNRES ---
Progress Note Date Seen: Jan 02, 2025 Resident Creating Document: KAYKAY WEBER RESIDENT Medical Necessity Reason Pt with a Central, PICC or Fol: No Subjective Review of Systems This is a 64-year-old male with past medical history of hypertension, coronary artery disease with [place], stroke, presented to the ER with chief complain of epigastrium and chest pain. He is a poor historian. He stated pain started suddenly around 10:00 p.m. at night yesterday, described as stabbing, 10 on 10, nonradiating, no aggravating or relieving factors. Pain is associated with nausea, dizziness without loss of consciousness, subjective fever, chills, numbness of the right side. He also complained of diarrhea, episodes daily for 3 days, stools are watery in consistency without any blood. He denies eating at a food truck, intake of raw sea foods, recent travel and sick contacts. PMHx: Hypertension, CAD with [place], stroke (unable to provide further details in the past history) PSHx: No surgeries in past Social history: Alcohol use, 500 mL vodka daily ( reportedly last consumed 2 days back), no smoking or recreational drug use. Lives in home with family. Full code. Next of kin brother Home medication: Aspirin, muscle relaxant, pain medication The patient was seen and examined at bedside. Overnight events were reviewed. The patient reports improvement in his symptoms, he is on room air. He denies any chest pain, shortness of breath, fever or any other complaints today. Objective vital signs Vital Sign Date Time Temp Pulse Resp B/P (MAP) Pulse Ox O2 Delivery O2 Flow Rate FiO2 01/02/25 09:56 141/98 01/02/25 09:55 65 01/02/25 09:00 98.0 16 92 98.0 01/01/25 20:00 Room Air* 0 21 Total Intake and Output 01/01/25 01/01/25 01/02/25 15:00 23:00 07:00 Intake Total 1650 ml 1850 ml Output Total 350 ml Balance 1650 ml 1500 ml medications Current Medications Medications Dose Ordered Sig/Maria G Route Start Time Stop Time Status Last Admin Dose Admin Morphine Sulfate 2 mg Q4HPRN PRN IV 01/01/25 06:45 Enoxaparin Sodium 40 mg DAILY SC 01/01/25 10:00 01/02/25 09:55 40 MG Ceftriaxone Sodium 50 ml @ 100 mls/hr DAILY@09 IV 01/01/25 09:00 01/02/25 09:53 100 MLS/HR Metronidazole 100 ml @ 100 mls/hr Q8HR IV 01/01/25 14:00 01/02/25 05:25 100 MLS/HR Pantoprazole Sodium 40 mg DAILY IV 01/01/25 10:00 01/02/25 09:54 40 MG Thiamine HCl 100 mg DAILY IV 01/02/25 10:00 01/02/25 09:53 100 MG Sodium Chloride 1,000 ml @ 100 mls/hr Q10H IV 01/01/25 06:45 01/02/25 02:56 100 MLS/HR Tamsulosin HCl 0.4 mg QPM PO 01/01/25 18:00 01/01/25 18:00 0.4 MG Folic Acid 1 mg/ Dextrose 50.2 ml @ 200.8 mls/ hr DAILY INJ 01/01/25 10:00 01/02/25 09:54 200.8 MLS/HR Aspirin 81 mg DAILY PO 01/01/25 10:00 01/02/25 09:55 81 MG Atorvastatin Calcium 40 mg HS PO 01/01/25 22:00 01/01/25 20:56 40 MG Metoprolol Tartrate 25 mg BID PO 01/01/25 22:00 01/02/25 09:55 25 MG Lisinopril 20 mg DAILY PO 01/02/25 10:00 01/02/25 09:56 20 MG Sucralfate 1 gm BID@0600,2200 PO 01/01/25 22:00 01/02/25 05:25 1 GM Examination Pt is lying on bed General Appearance: Alert, Oriented X3, Cooperative, Mild distress HEENT: Atraumatic, Mucous membranes moist/pink Respiratory: Clear to auscultation, Normal air movement, No added sounds Cardiovascular: Regular rate, Normal S1, Normal S2, No murmurs Abdominal/ : Active bowel sounds, Soft, no distention, no tenderness Extremities: No edema, Normal pulses, No tenderness/swelling Skin: No Significant rash, except past surgical scars Neuro: Normal speech, sensorimotor deficits none Psych/Mental Status: Mental status NL, Mood NL Nurse was there as electric organ assembler and checker during examination laboratory and microbiology Laboratory Tests 01/02/25 06:31 Test 01/02/25 06:31 Range/Units Serum Glucose 101 74-106 mg/dL Microbiology Date/Time Source Procedure Growth Status 01/01/25 07:35 Blood Blood Culture - Preliminary NO GROWTH AFTER 24 HOURS OF INCUBATION. Resulted Labs and/or images reviewed: Labs reviewed by me, Image(s) reviewed by me Problem List/Assessment/Plan Problem List/Assessment/Plan Acute cholecystitis versus symptomatic cholelithiasis Acute diverticulitis Gastritis CT abdomen shows acute uncomplicated proximal sigmoid diverticulitis, cholelithiasis and gallbladder distention Blood culture IV ceftriaxone and metronidazole Pain management and IV maintenance fluids Monitor on telemetry Sucralfate Acute toxic or metabolic encephalopathy Alcohol use disorder Alcohol withdrawal Elevated LFTs due to alcohol use disorder CIWA score 6 Drug screen Blood alcohol Folic acid and thiamine given. Head CT without contrast showed no acute abnormalities Avoid hepatotoxic agents Counseled on alcohol use cessation Uncontrolled hypertension Lisinopril 20 mg daily p.o. Metoprolol tartrate 25 mg Bilateral nephrolithiasis Monitor Currently on IV fluids Pancreatitis, ruled out Elevated lipase CT abdomen shows normal pancreatic anatomy Ruled out acute coronary syndrome History of stroke History of CAD with [place] Patient's EKG showed sinus bradycardia with RBBB, troponin x2 negative, noncardiac chest pain. Ruled out acute coronary syndrome Last echocardiogram on 10/2024: Aortic root enlargement, left atrial enlargement, RV enlargement, LVEF 60%, normal RV function, moderate MR Cardiology consultation appreciated, scheduled for Cardiolite stress test on Saturday01/04/2025 Continue single antiplatelet therapy, lipid lowering agent, and blood pressure control. Hypercholesteremia Labs show elevated triglycerides, LDL Lifestyle modification Atorvastatin 40 mg GI prophylaxis: Pantoprazole DVT prophylaxis: Lovenox Diet: Advance diet as tolerated Case discussed with Dr. Dobbins , patient and RN Plan discussed with: Patient, Other (RN) Date of Service: Jan 02, 2025 Billing Provider: PAULIE DOBBINS MD Common Visit Codes: [id number] INP/OBS CARE(HIGH) Secondary Visit Codes: [id number] CARE PLAN 30 MINUTES Addendum Addendum Addendum I was physically present for the kimbrough portions of the service provided to patient by THE RESIDENT. I have reviewed the documentation, discussed the case with resident and agree with the resident's documentation except as noted. Also the patient's clinical case was discussed with the patient's nurse. This medical document was created using an electronic medical record system with computerized dictation system. Although this document has been carefully reviewed, there might still be some phonetic and typographical errors. These areas are purely typographical due to imperfections of the software programs, and do not reflect any compromise in the patient's medical care. Late signature. KAYKAY WEBER Jan 02, 2025 11:24 PAULIE DOBBINS MD Jan 04, 2025 05:15
[2025-01-03] VITALS (7 sets, daily range): BP systolic 135–158; BP diastolic 92–103; PULSE 57–81; RESP 16–18; TEMP 97.7–98.2; O2SAT 96–98
[2025-01-03 11:02] LABS: Hematocrit 37.8 % (41.0-53.0); Hemoglobin 13.3 g/dL (13.5-17.5); Mean Corpuscular Hemoglobin 35.9 pg (28.0-32.0); Mean Corpuscular Volume 102.1 fL (80.0-100.0)
[2025-01-03 11:05] LABS: Nucleated Red Blood Cells % 0.0 %
[2025-01-03 11:15] LABS: Chloride 104 mmol/L (98-107); Potassium 3.5 mmol/L (3.5-5.1); Sodium 138 mmol/L (136-145)
[2025-01-03 11:16] LABS: Anion Gap 8 (5-15); Calcium 8.8 mg/dL (8.7-10.4); Carbon Dioxide 26 mmol/L (20-31)
[2025-01-03 11:21] LABS: BUN/Creatinine Ratio 8.6 (10.0-20.0)
[2025-01-03 11:23] LABS: Blood Urea Nitrogen 8 mg/dL (9-23); Glucose 173 mg/dL (74-106)
[2025-01-03] MEDS: MORPHINE SULFATE INJ 2 MG/ml SYRG IV PRN (12:24)
--- NOTE | 2025-01-03 14:53 | DVHPNRES ---
Progress Note Date Seen: Jan 03, 2025 Resident Creating Document: LENCHO MORA Medical Necessity Reason Pt with a Central, PICC or Fol: No Subjective Review of Systems This is a 64-year-old male with a past medical history of hypertension, coronary artery disease with myocardial infarction ([place]), and stroke, who presented to the emergency room with a chief complaint of epigastric and chest pain. He is a poor historian. He stated that the pain started suddenly around 10:00 p.m. last night and described it as stabbing, rated 10/10 in intensity, non-radiating, with no identifiable aggravating or relieving factors. The pain was associated with nausea and dizziness, without loss of consciousness. He reported subjective fever, chills, and numbness on the right side. He also complained of diarrhea, with multiple episodes daily for the past three days. Stools are watery in consistency without any blood. He denies eating from a food truck, consuming raw seafood, recent travel, or contact with sick individuals. PMHx: Hypertension, CAD with [place], stroke (unable to provide further details in the past history) PSHx: No surgeries in past Social history: Alcohol use, 500 mL vodka daily ( reportedly last consumed 2 days back), no smoking or recreational drug use. Lives in home with family. Full code. Next of kin brother Home medication: Aspirin, muscle relaxant, pain medication 01/02- The patient was seen and examined at bedside. Overnight events were reviewed. The patient reports improvement in his symptoms, he is on room air. He denies any chest pain, shortness of breath, fever or any other complaints today. 01/03- Patient was seen and examined at bedside. On evaluation today, he states he is well, pain is manageable with pain medication. He denies nausea, dizziness. Objective vital signs Vital Sign Date Time Temp Pulse Resp B/P (MAP) Pulse Ox O2 Delivery O2 Flow Rate FiO2 01/03/25 12:54 63 18 148/95 01/03/25 12:41 98.2 96 98.2 01/03/25 08:00 Room Air* 0 21 Total Intake and Output 01/02/25 01/02/25 01/03/25 15:00 23:00 07:00 Intake Total 680.2 ml 1245 ml 945 ml Output Total 900 ml Balance 680.2 ml 1245 ml 45 ml medications Current Medications Medications Dose Ordered Sig/Maria G Route Start Time Stop Time Status Last Admin Dose Admin Morphine Sulfate 2 mg Q4HPRN PRN IV 01/01/25 06:45 01/03/25 12:24 2 MG Enoxaparin Sodium 40 mg DAILY SC 01/01/25 10:00 01/03/25 09:24 40 MG Ceftriaxone Sodium 50 ml @ 100 mls/hr DAILY@09 IV 01/01/25 09:00 01/03/25 09:17 100 MLS/HR Metronidazole 100 ml @ 100 mls/hr Q8HR IV 01/01/25 14:00 01/03/25 13:58 100 MLS/HR Pantoprazole Sodium 40 mg DAILY IV 01/01/25 10:00 01/03/25 09:24 40 MG Thiamine HCl 100 mg DAILY IV 01/02/25 10:00 01/03/25 09:24 100 MG Tamsulosin HCl 0.4 mg QPM PO 01/01/25 18:00 01/02/25 17:38 0.4 MG Folic Acid 1 mg/ Dextrose 50.2 ml @ 200.8 mls/ hr DAILY INJ 01/01/25 10:00 01/03/25 10:00 200.8 MLS/HR Aspirin 81 mg DAILY PO 01/01/25 10:00 01/03/25 09:24 81 MG Atorvastatin Calcium 40 mg HS PO 01/01/25 22:00 01/02/25 21:06 40 MG Metoprolol Tartrate 25 mg BID PO 01/01/25 22:00 01/02/25 21:07 25 MG Lisinopril 20 mg DAILY PO 01/02/25 10:00 01/03/25 09:24 20 MG Sucralfate 1 gm BID@0600,2200 PO 01/01/25 22:00 01/03/25 05:26 1 GM Lorazepam 1 mg QHSP PRN PO 01/03/25 09:45 Examination Pt is lying on bed General Appearance: Alert, Oriented X3, Cooperative, Mild distress HEENT: Atraumatic, Mucous membranes moist/pink Respiratory: Clear to auscultation, Normal air movement, No added sounds Cardiovascular: Regular rate, Normal S1, Normal S2, No murmurs Abdominal/ : Active bowel sounds, Soft, no distention, no tenderness Extremities: No edema, Normal pulses, No tenderness/swelling Skin: No Significant rash, except past surgical scars Neuro: Normal speech, sensorimotor deficits none Psych/Mental Status: Mental status NL, Mood NL laboratory and microbiology Laboratory Tests 01/03/25 10:35 Test 01/03/25 10:35 Range/Units Serum Glucose 173 H 74-106 mg/dL Microbiology Date/Time Source Procedure Growth Status 01/01/25 07:35 Blood Blood Culture - Preliminary NO GROWTH AFTER 48 HOURS OF INCUBATION. Resulted Labs and/or images reviewed: Labs reviewed by me, Image(s) reviewed by me Problem List/Assessment/Plan Problem List/Assessment/Plan Acute cholecystitis versus symptomatic cholelithiasis Acute diverticulitis Gastritis CT abdomen shows acute uncomplicated proximal sigmoid diverticulitis, cholelithiasis and gallbladder distention Blood culture IV ceftriaxone and metronidazole Pain management and IV maintenance fluids Monitor on telemetry Sucralfate Acute toxic or metabolic encephalopathy Alcohol use disorder Alcohol withdrawal Elevated LFTs due to alcohol use disorder CIWA score 2 Drug screen Blood alcohol Folic acid and thiamine given. Head CT without contrast showed no acute abnormalities Avoid hepatotoxic agents Counseled on alcohol use cessation Uncontrolled hypertension Lisinopril 20 mg daily p.o. Metoprolol tartrate 25 mg Bilateral nephrolithiasis Monitor Currently on IV fluids Pancreatitis, ruled out Elevated lipase CT abdomen shows normal pancreatic anatomy Ruled out acute coronary syndrome History of stroke History of CAD with [place] Patient's EKG showed sinus bradycardia with RBBB, troponin x2 negative, noncardiac chest pain. Ruled out acute coronary syndrome Last echocardiogram on 10/2024: Aortic root enlargement, left atrial enlargement, RV enlargement, LVEF 60%, normal RV function, moderate MR Cardiology consultation appreciated, scheduled for Cardiolite stress test on Saturday01/04/2025 Continue single antiplatelet therapy, lipid lowering agent, and blood pressure control. Hypercholesteremia Labs show elevated triglycerides, LDL Lifestyle modification Atorvastatin 40 mg GI prophylaxis: Pantoprazole DVT prophylaxis: Lovenox Diet: Advance diet as tolerated Case discussed with Dr. Danielle , patient and RN Plan discussed with: Patient, Other (RN) My Orders My Orders Orders - LENCHO MORA RESIDENT Procedure Category Date Status Time Complete Blood Count LAB 01/04/25 Verified 04:00 Basic Metabolic Panel LAB 01/04/25 Verified 04:00 Dietary Evaluation Review Recommendations by RD: Dietary education by RD Comments: 1) Add cardiac restriction to mechanical soft diet 2) Encourage optimal PO intake 3) Refer to outpatient RD for weight management 4) Follow-up with gastroenterology, cardiology, and urology 5) Follow-up with psychologist social r/t ETOH abuse 6) Continue to monitor I&O, labs, and skin integrity Expected Outcomes/Goals: 1) appetite and labs to improve 2) gradual wt loss 3) f/u in 3-5 days Date of Service: Jan 03, 2025 Billing Provider: PAULIE DANIELLE MD Common Visit Codes: [id number] INP/OBS CARE(HIGH) Addendum Addendum Addendum I was physically present for the kimbrough portions of the service provided to patient by THE RESIDENT. I have reviewed the documentation, discussed the case with resident and agree with the resident's documentation except as noted. Also the patient's clinical case was discussed with the patient's nurse. This medical document was created using an electronic medical record system with computerized dictation system. Although this document has been carefully reviewed, there might still be some phonetic and typographical errors. These areas are purely typographical due to imperfections of the software programs, and do not reflect any compromise in the patient's medical care. Late signature. LENCHO MORA Jan 03, 2025 14:53 PAULIE DANIELLE MD Jan 04, 2025 05:18
--- NOTE | 2025-01-03 16:04 | DVHPNRES ---
Progress Note Date Seen: Jan 03, 2025 Resident Creating Document: LENCHO MORA RESIDENT Medical Necessity Reason Pt with a Central, PICC or Fol: No Objective vital signs Vital Sign Date Time Temp Pulse Resp B/P (MAP) Pulse Ox O2 Delivery O2 Flow Rate FiO2 01/03/25 12:54 63 18 148/95 01/03/25 12:41 98.2 96 98.2 01/03/25 08:00 Room Air* 0 21 Total Intake and Output 01/02/25 01/02/25 01/03/25 15:00 23:00 07:00 Intake Total 680.2 ml 1245 ml 945 ml Output Total 900 ml Balance 680.2 ml 1245 ml 45 ml medications Current Medications Medications Dose Ordered Sig/Maria G Route Start Time Stop Time Status Last Admin Dose Admin Morphine Sulfate 2 mg Q4HPRN PRN IV 01/01/25 06:45 01/03/25 12:24 2 MG Enoxaparin Sodium 40 mg DAILY SC 01/01/25 10:00 01/03/25 09:24 40 MG Ceftriaxone Sodium 50 ml @ 100 mls/hr DAILY@09 IV 01/01/25 09:00 01/03/25 09:17 100 MLS/HR Metronidazole 100 ml @ 100 mls/hr Q8HR IV 01/01/25 14:00 01/03/25 13:58 100 MLS/HR Pantoprazole Sodium 40 mg DAILY IV 01/01/25 10:00 01/03/25 09:24 40 MG Thiamine HCl 100 mg DAILY IV 01/02/25 10:00 01/03/25 09:24 100 MG Tamsulosin HCl 0.4 mg QPM PO 01/01/25 18:00 01/02/25 17:38 0.4 MG Folic Acid 1 mg/ Dextrose 50.2 ml @ 200.8 mls/ hr DAILY INJ 01/01/25 10:00 01/03/25 10:00 200.8 MLS/HR Aspirin 81 mg DAILY PO 01/01/25 10:00 01/03/25 09:24 81 MG Atorvastatin Calcium 40 mg HS PO 01/01/25 22:00 01/02/25 21:06 40 MG Metoprolol Tartrate 25 mg BID PO 01/01/25 22:00 01/02/25 21:07 25 MG Lisinopril 20 mg DAILY PO 01/02/25 10:00 01/03/25 09:24 20 MG Sucralfate 1 gm BID@0600,2200 PO 01/01/25 22:00 01/03/25 05:26 1 GM Lorazepam 1 mg QHSP PRN PO 01/03/25 09:45 laboratory and microbiology Laboratory Tests 01/03/25 10:35 Test 01/03/25 10:35 Range/Units Serum Glucose 173 H 74-106 mg/dL Microbiology Date/Time Source Procedure Growth Status 01/01/25 07:35 Blood Blood Culture - Preliminary NO GROWTH AFTER 48 HOURS OF INCUBATION. Resulted Problem List/Assessment/Plan Problem List/Assessment/Plan Acute cholecystitis versus symptomatic cholelithiasis Acute diverticulitis Gastritis CT abdomen shows acute uncomplicated proximal sigmoid diverticulitis, cholelithiasis and gallbladder distention Blood culture IV ceftriaxone and metronidazole Pain management and IV maintenance fluids Monitor on telemetry Sucralfate Acute toxic or metabolic encephalopathy Alcohol use disorder Alcohol withdrawal CIWA score 6 Drug screen Blood alcohol Folic acid and thiamine given. Uncontrolled hypertension Lisinopril 20 mg daily p.o. Metoprolol tartrate 25 mg Transaminitis Elevated AST, ALT Cardiology consultation appreciated, scheduled for Cardiolite stress test on Saturday01/04/2025 Bilateral nephrolithiasis Monitor Currently on IV fluids Pancreatitis, ruled out Elevated lipase CT abdomen shows normal pancreatic anatomy Ruled out acute coronary syndrome History of stroke History of CAD with [place] Patient's EKG showed sinus bradycardia with RBBB, troponin x2 negative, noncardiac chest pain. Ruled out acute coronary syndrome Last echocardiogram on 10/2024: Aortic root enlargement, left atrial enlargement, RV enlargement, LVEF 60%, normal RV function, moderate MR Cardiology consultation appreciated: Cardiolite stress test ordered. Continue single antiplatelet therapy, lipid lowering agent, and blood pressure control. Hypercholesteremia Labs show elevated triglycerides, LDL Lifestyle modification Atorvastatin 40 mg GI prophylaxis: Pantoprazole DVT prophylaxis: Lovenox Diet: Mechanical soft diet Goals of care discussed with the patient for more than 27 minutes: Full code status Goals of care: Full code, discussed for >16 minutes on 01/03/25 Plan discussed with patient Plan discussed with Dr. abreu My Orders My Orders Orders - LENCHO MORA Procedure Category Date Status Time Complete Blood Count LAB 01/04/25 Verified 04:00 Basic Metabolic Panel LAB 01/04/25 Verified 04:00 Dietary Evaluation Review Recommendations by RD: Dietary education by RD Comments: 1) Add cardiac restriction to mechanical soft diet 2) Encourage optimal PO intake 3) Refer to outpatient RD for weight management 4) Follow-up with gastroenterology, cardiology, and urology 5) Follow-up with hospital social worker r/t ETOH abuse 6) Continue to monitor I&O, labs, and skin integrity Expected Outcomes/Goals: 1) appetite and labs to improve 2) gradual wt loss 3) f/u in 3-5 days Date of Service: Jan 03, 2025 Billing Provider: LENCHO MORA Common Visit Codes: [id number] INP/OBS CARE(HIGH) Secondary Visit Codes: [id number] CARE PLAN 30 MINUTES LENCHO MORA Jan 03, 2025 16:04
[2025-01-03] MEDS: LACTULOSE 20Gm/30ML SOLN PO ONE (17:39)
[2025-01-03] MEDS: HYDROcodone-ACET 5/325MG TAB PO PRN (17:40)
[2025-01-03] MEDS: KETOROLAC TROMETH 30 MG/ML 1ML VIAL IV PRN (19:37)
[2025-01-03] MEDS: LORazepam 0.5 MG TAB PO PRN (22:45)
[2025-01-04 01:03] VITALS: BP 144/95; PULSE 60; RESP 16; TEMP 97.7; O2SAT 95
[2025-01-04 04:44] VITALS: BP 127/60; PULSE 69; RESP 16; TEMP 97.8; O2SAT 95
[2025-01-04 06:44] LABS: Anion Gap 10 (5-15); Carbon Dioxide 26 mmol/L (20-31); Chloride 102 mmol/L (98-107); Sodium 138 mmol/L (136-145)
[2025-01-04 06:46] LABS: Calcium 9.0 mg/dL (8.7-10.4)
[2025-01-04 06:47] LABS: Potassium 3.5 mmol/L (3.5-5.1)
[2025-01-04 06:50] LABS: Glucose 91 mg/dL (74-106)
[2025-01-04 06:51] LABS: BUN/Creatinine Ratio 8.3 (10.0-20.0); Blood Urea Nitrogen 7 mg/dL (9-23)
[2025-01-04 07:20] LABS: Nucleated Red Blood Cells % 0.2 %
[2025-01-04 07:23] LABS: Hematocrit 40.4 % (41.0-53.0); Hemoglobin 14.4 g/dL (13.5-17.5); Mean Corpuscular Hemoglobin 36.1 pg (28.0-32.0); Mean Corpuscular Volume 101.2 fL (80.0-100.0)
[2025-01-04 08:00] VITALS: PULSE 56; PULSE 60; RESP 18; O2SAT 96
[2025-01-04 09:00] VITALS: BP 130/93; PULSE 70; RESP 16; TEMP 98.3; O2SAT 93
[2025-01-04] MEDS: REGADENOSON 0.4 MG/5 ML SYRG IV ONE ×2 (09:07)
[2025-01-04] MEDS ORDERED: LISINOPRIL 5 MG TAB PO SCH (10:00)
--- NOTE | 2025-01-04 12:05 | DVHSR ---
APPROVED REPORT Exam: Nuclear Stress Test BMI: 0 Stress Test Details HR Max Heart Rate (APMHR): 157.846055 bpm Target HR (85% APMHR): 133.362934 bpm BP ECG Stress ECG Conclusion no severe ischemia noted lvef 60% rbbb on ecg inferior wall artifact NM EXAM: Myocardial Perfusion REST/STRESS Imaging Protocol: Rest Tc-99m/Stress Tc-99m 1 day Resting Data Rest SPECT myocardial perfusion imaging was performed in supine position 60 minutes following the int ravenous injection of 11.0 mCi of Tc-99m Sestamibi. Time of rest injection: 07:40 Date: 01/04/2025 Time of rest imagin:40 Date: 01/04/2025 Administration Route: IV Administration Site: Left Arm Pharmacologic Stress Pharmacologic stress test was performed by injecting Regadenoson 0.4 mg IV push followed by the intra venous injection of 29.5 mCi of Tc-99m Sestamibi. Time of stress injection: 09:05 Date: 01/04/2025 Time of stress imagin:05 Date: 01/04/2025 Administration Route: IV Administration Site: Left Arm Gated Stress SPECT was performed 60 minutes after stress injection. The images were gated to evaluate regional wall motion and calculate left ventricular ejection fracti on. Stress only was performed in the Supine position. Nuclear Conclusion Nuclear Findings: negative for ischemia no severe ischemia noted lvef 60% rbbb on ecg inferior wall artifact
[2025-01-04 12:56] VITALS: BP 134/94; PULSE 82; RESP 16; TEMP 98; O2SAT 94
--- NOTE | 2025-01-04 14:03 | DVHDSRES ---
Discharge Summary Date of Admission Resident Creating Document: KAYKAY WEBER Jan 01, 2025 at 06:32 Date of Discharge: Jan 04, 2025 Admitting Diagnosis ACS Labs/Diagnostic Data: Laboratory Results Test 01/04/25 05:50 01/03/25 10:35 01/02/25 06:31 01/01/25 11:32 White Blood Count 8.6 10^3/uL (4.4-10.8) Red Blood Count 3.99 10^6/uL (4.5-5.90) Hemoglobin 14.4 g/dL (13.5-17.5) Hematocrit 40.4 % (41.0-53.0) Mean Corpuscular Volume 101.2 fL (80.0-100.0) Mean Corpuscular Hemoglobin 36.1 pg (28.0-32.0) Mean Corpuscular Hemoglobin Concent 35.7 g/dL (32.0-36.0) Red Cell Distribution Width 15.4 % (11.8-14.3) Platelet Count 152 10^3/uL (140-450) Mean Platelet Volume 9.2 fL (6.9-10.8) Neutrophils (%) (Auto) 59.1 % (37.0-80.0) Lymphocytes (%) (Auto) 23.6 % (10.0-50.0) Monocytes (%) (Auto) 13.5 % (0.0-12.0) Eosinophils (%) (Auto) 3.3 % (0.0-7.0) Basophils (%) (Auto) 0.5 % (0.0-2.0) Neutrophils # (Auto) 5.1 10 ^3/uL (1.6-8.6) Lymphocytes # (Auto) 2.0 10 ^3/uL (0.4-5.4) Monocytes # (Auto) 1.2 10 ^3/uL (0-1.3) Eosinophils # (Auto) 0.3 10 ^3/uL (0-0.8) Basophils # (Auto) 0 10 ^3/uL (0-0.2) Nucleated Red Blood Cells 0.2 % Sodium Level 138 mmol/L (136-145) Potassium Level 3.5 mmol/L (3.5-5.1) Chloride Level 102 mmol/L (98-107) Carbon Dioxide Level 26 mmol/L (20-31) Anion Gap 10 (5-15) Blood Urea Nitrogen 7 mg/dL (9-23) Creatinine 0.84 mg/dL (0.700-1.30) Glomerular Filtration Rate Calc 98 mL/min (>90) BUN/Creatinine Ratio 8.3 (10.0-20.0) Serum Glucose 91 mg/dL (74-106) Calcium Level 9.0 mg/dL (8.7-10.4) Folic Acid 16.42 ng/mL (>5.38) Total Bilirubin 0.9 mg/dL (0.2-1.0) Aspartate Amino Transferase (AST) 69 U/L (13-40) Alanine Aminotransferase (ALT) 55 U/L (7-40) Alkaline Phosphatase 70 U/L (46-116) Total Protein 6.1 g/dL (5.7-8.2) Albumin 3.7 g/dL (3.2-4.8) Troponin I High Sensitivity < 3 ng/L (</=54) Test 01/01/25 10:51 01/01/25 07:56 01/01/25 07:55 01/01/25 06:00 Plasma/Serum Blood Alcohol < 3.0 mg/dL (<10) Urine Opiates Screen Pos (NEGATIVE) Urine Fentanyl Screen Neg (NEGATIVE) Urine Barbiturates Screen Neg (NEGATIVE) Urine Phencyclidine Screen Neg (NEGATIVE) Urine Amphetamines Screen Neg (NEGATIVE) Urine Benzodiazepines Screen Neg (NEGATIVE) Urine Cocaine Screen Neg (NEGATIVE) Urine Cannabinoids Screen Neg (NEGATIVE) Urine Color Yellow (Yellow) Urine Clarity Clear (Clear) Urine pH 6.0 (5.0-9.0) Urine Specific [place] 1.026 (1.001-1.035) Urine Protein Trace (Negative) Urine Ketones Negative (Negative) Urine Blood Negative /uL (Negative) Urine Nitrite Negative (Negative) Urine Bilirubin Negative (Negative) Urine Urobilinogen Normal mg/dL (Negative) Urine Leukocyte Esterase Negative /uL (Negative) Urine RBC <1 /hpf (0 - 3) Urine Microscopic WBC 1 /HPF (0-3) Urine Squamous Epithelial Cells None seen /hpf (<5) Urine Bacteria None seen /hpf (None Seen) Urine Mucus Few (None Seen) Urine Glucose Normal mg/dL (Normal) Lactic Acid Level 1.8 mmol/L (0.4-2.0) Test 01/01/25 02:12 Prothrombin Time 10.3 sec (9.3-11.8) Prothrombin Time INR 0.97 (0.9-1.15) Activated Partial Thromboplast Time 25.9 SEC (24.5-34.5) Hemoglobin A1c 5.5 % A1C (<5.7) Phosphorus Level 2.3 mg/dL (2.4-5.1) Magnesium Level 1.9 mg/dL (1.6-2.6) B-Type Natriuretic Peptide 123.14 pg/mL (0-100) Triglycerides Level 287 mg/dL (< 150) Cholesterol Level 182 mg/dL (< 200) LDL Cholesterol 109 mg/dL (< 100) HDL Cholesterol 37 mg/dL (40-59) Lipase 83 U/L (12-53) Vitamin B12 Level 479 pg/mL (211-911) Vitamin D 25-Hydroxy 30.9 ng/mL (30.0-100) Thyroid Stimulating Hormone (TSH) 4.24 uIU/mL (0.55-4.78) Other Laboratory Tests 01/04/25 05:50 Brief Hx & Hospital Course: This is a 64-year-old male with a past medical history of hypertension, coronary artery disease with myocardial infarction (NE), and stroke, who presented to the emergency room with a chief complaint of epigastric and chest pain. He is a poor historian. He stated that the pain started suddenly around 10:00 p.m. last night and described it as stabbing, rated 10/10 in intensity, non-radiating, with no identifiable aggravating or relieving factors. The pain was associated with nausea and dizziness, without loss of consciousness. He reported subjective fever, chills, and numbness on the right side. He also complained of diarrhea, with multiple episodes daily for the past three days. Stools are watery in consistency without any blood. He denies eating from a food truck, consuming raw seafood, recent travel, or contact with sick individuals. PMHx: Hypertension, CAD with NE, stroke (unable to provide further details in the past history) PSHx: No surgeries in past Social history: Alcohol use, 500 mL vodka daily ( reportedly last consumed 2 days back), no smoking or recreational drug use. Lives in home with family. Full code. Next of kin brother Home medication: Aspirin, muscle relaxant, pain medication Given the patient's history of stroke and coronary artery disease with prior NE, an EKG was obtained due to chest pain, showing sinus bradycardia with right bundle branch block. Serial troponins were negative and acute coronary syndrome was ruled out. Cardiology was consulted, and a Cardiolite stress test was done on 01/04/2025 which was negative for ischemia, recent transthoracic echo reveals LV ejection fraction 60%, normal RV function, there was no additional workup indicated from a cardiology standpoint. CT abdomen and pelvis revealed acute uncomplicated proximal sigmoid diverticulitis, cholelithiasis and gallbladder distention. Acute cholecystitis was ruled out by imaging. Blood culture reveals no growth. The patient was treated with IV ceftriaxone and metronidazole and IV fluid. Was monitored on telemetry. Treated with sucralfate for possible gastritis. For his acute diverticulitis surgery recommended conservative management with IV antibiotics and fluid and no urgent intervention necessary at this time according to a surgery standpoint. The patient was treated for acute toxic or metabolic encephalopathy given his alcohol withdrawal, elevated LFT was noted due to alcohol use disorder. Initial CIWA score was 6. Patient was treated with folic acid thiamine and IV fluid. Head CT was done which ruled out any acute abnormalities. Uncontrolled hypertension was managed with lisinopril and metoprolol. For bilateral nephrolithiasis kidney function was monitored and was given IV fluid. Pancreatitis was ruled out by negative CT. Hypercholesterolemia was managed with atorvastatin 40 mg and the patient was advised for healthy lifestyle modification. During discharge the patient was hemodynamically stable, was tolerating oral diet, discharge plan was discussed with patient and verbalized understanding. Examination Pt is lying on bed General Appearance: Alert, Oriented X3, Cooperative, Mild distress HEENT: Atraumatic, Mucous membranes moist/pink Respiratory: Clear to auscultation, Normal air movement, No added sounds Cardiovascular: Regular rate, Normal S1, Normal S2, No murmurs Abdominal/ : Active bowel sounds, Soft, no distention, no tenderness Extremities: No edema, Normal pulses, No tenderness/swelling Skin: No Significant rash, except past surgical scars Neuro: Normal speech, sensorimotor deficits none Psych/Mental Status: Mental status NL, Mood NL We discussed with Dr. Julien, patient and nurses Operations or Procedures Cardiolite stress test: Nuclear Conclusion Nuclear Findings: negative for ischemia no severe ischemia noted lvef 60% rbbb on ecg inferior wall artifact PATIENT: LOCO HERNÁNDEZ ACCT: [id number] UNIT: [id number] : 1960 LOC: [facility] ROOM / BED: 0247T / A AGE / SEX: 64 / M ADM STATUS: ADM IN SERVICE 4 ORDERING PHYSICIAN: MELQUIADES CHRISTY PROCEDURE(s): GBUS - GALLBLADDER REASON: epigastric pain, possible cholecystitis ORDER NUMBER(s): [id number], ACCESSION NUMBER(s): [id number] INDICATION: epigastric pain, possible cholecystitis TECHNIQUE: Multiple real-time sonographic images were obtained of the right upper quadrant. COMPARISON: None FINDINGS: The liver demonstrates increased echotexture without focal mass lesions. The liver measures 17 cm. There is no intrahepatic or extrahepatic ductal dilatation. The common duct measures 5 mm. The gallbladder is without evidence of stone or sludge. The gallbladder wall measures 4 mm and is within normal limits. The right kidney measures 12 cm. The right kidney is normal in contour, size, and shape. The echogenicity is normal. There is no hydronephrosis. The pancreas is not well visualized due to overlying bowel gas. IMPRESSION: No sonographic evidence of gallstones or acute cholecystitis. Hepatic steatosis. ATED BY: DANII FERNÁNDEZ MD DICTATED DATE/TIME: 01/01/251243 SIGNED BY: DANII FERNÁNDEZ MD SIGNED DATE/TIME: 01/01/251243 PATIENT: LOCO HERNÁNDEZ ACCT: [id number] UNIT: [id number] : 1960 LOC: OVERFL[facility] ROOM / BED: [facility] / A AGE / SEX: 64 / M ADM STATUS: ADM IN SERVICE 6 ORDERING PHYSICIAN: PAULIE DOBBINS MD PROCEDURE(s): HWOCT - HEAD WITHOUT CONTRAST REASON: confusion ORDER NUMBER(s): [id number], ACCESSION NUMBER(s): [id number] CLINICAL HISTORY: confusion TECHNIQUE: Helical scanning was performed of the head from the skull base to the vertex. Multiplanar reconstructions were performed. This exam was performed according to our departmental dose optimization program. Up-to-date CT equipment and radiation dose reduction techniques are utilized as appropriate. CTDI 56 DLP 988 COMPARISON: CT HEAD WITHOUT CONTRAST on DOS: 08/24/23, CT CERVICAL WITHOUT CONTRAST on DOS: 08/24/23, CT HEAD WITHOUT CONTRAST on DOS: 05/17/23 FINDINGS: There is no evidence for acute intracranial hemorrhage, acute ischemic changes, mass, mass effect, or extra-axial fluid collection. There is no hydrocephalus or midline shift. There is no effacement of the cerebral sulci and basal subarachnoid cisterns. The [place]-white matter differentiation is well maintained. There is a moderate size old left MCA territory infarct with encephalomalacia involving the left frontal, parietal, and anterolateral temporal lobes as well as basal ganglia. There is ex vacuo dilatation of the left lateral ventricle. The imaged paranasal sinuses demonstrate minimal scattered mucoperiosteal thickening. IMPRESSION: NO ACUTE INTRACRANIAL ABNORMALITY SEEN. ATED BY: ASHLEE MERRITT MD DICTATED DATE/TIME: 01/01/25 1004 SIGNED BY: ASHLEE MERRITT MD SIGNED DATE/TIME: 01/01/25 1004 PATIENT: LOCO HERNÁNDEZ ACCT: [id number] UNIT: [id number] : 1960 LOC: ER ROOM / BED: / AGE / SEX: 64 / M ADM STATUS: REG ER SERVICE 0159 ORDERING PHYSICIAN: MAYE MCPHERSON MD PROCEDURE(s): CTCAP - CHST AB PEL WO CON-NO IV/ORAL REASON: Epigastric pain ORDER NUMBER(s): [id number], ACCESSION NUMBER(s): [id number] Exam: CT CHST AB PEL WO CON-NO IV/ORAL History: Epigastric pain Comparison Study: XY CHEST XRAY 1 VIEW on DOS: 01/01/25, XY CHEST PORTABLE on DOS: 10/19/24, XY CHEST PORTABLE on DOS: 08/24/23, XY CHEST TWO VIEWS ROUTINE on DOS: 05/17/23 Technique: Multidetector spiral CT of the chest, abdomen and pelvis was performed from lower neck to pubic symphysis Axial, coronal and sagittal multiplanar reformats were performed by the technologist on a separate workstation. Radiation Dose : 1. Chest/Abdomen/Pelvis: CTDIvol 15.36 mGy, DLP 1196.04 mGy*cm. Findings: Lower neck: Normal thyroid. Lungs: No focal consolidation, pleural effusion or pneumothorax. Heart/Vascular Structures: Normal heart size. No pericardial effusion. Lymph Nodes: No adenopathy Pleura: No pleural effusion or significant pneumothorax. Liver: The liver is normal in size. Hepatic steatosis. No focal lesions. Normal hepatic parenchymal attenuation. Gallbladder and Biliary Tree: Cholelithiasis and gallbladder distention. Spleen: Unremarkable Pancreas: The pancreas is normal in appearance without focal lesions. Adrenal Glands: Unremarkable Kidneys: Punctate nonobstructive bilateral nephroliths. Mild left perinephric edema. No evidence of hydronephrosis. Bladder: Unremarkable Bowel: The stomach is grossly normal in appearance. Moderate circumferential wall thickening of the proximal sigmoid colon in the setting of multiple diverticula with adjacent inflammatory changes, consistent with sequelae of acute diverticulitis. Small bowel and colon are normal in caliber and distribution. The appendix is not visualized; however, no secondary findings of acute appendicitis identified. Ascites: Absent Lymphadenopathy: No mesenteric, retroperitoneal or periportal lymphadenopathy. Abdominal Wall and Mesentery: Unremarkable. Vasculature: The visualized abdominal aorta is normal in size and caliber. Atherosclerotic vascular calcifications. Pelvic Organs: Unremarkable Musculoskeletal: No aggressive focal bony lesions, acute fractures or dislocation. IMPRESSION: 1. Acute uncomplicated proximal sigmoid diverticulitis. 2. Cholelithiasis and gallbladder distention. 3. Bilateral nephrolithiasis. ATED BY: GRAY FARRELL MD PATIENT: LOCO HERNÁNDEZ ACCT: [id number] UNIT: [id number] : 1960 LOC: ER ROOM / BED: / AGE / SEX: 64 / M ADM STATUS: REG ER SERVICE 0159 ORDERING PHYSICIAN: MAYE MCPHERSON MD PROCEDURE(s): CXR1 - CHEST XRAY 1 VIEW REASON: cp ORDER NUMBER(s): [id number], ACCESSION NUMBER(s): [id number] CHEST RADIOGRAPH Indication: cp Technique: Single frontal view of the chest was obtained COMPARISON: XY CHEST PORTABLE on DOS: 10/19/24, XY CHEST PORTABLE on DOS: 08/24/23, XY CHEST TWO VIEWS ROUTINE on DOS: 05/17/23 FINDINGS: Lines and Tubes: None Lungs: Clear Pleura: No effusion. No pneumothorax. Cardiomediastinal contours: Unremarkable Bones: Unremarkable IMPRESSION: 1. No acute disease. Condition at Discharge: Stable Final Diagnosis/Problems List Costochondritis (noncardiac chest pain) Acute cholecystitis versus symptomatic cholelithiasis Acute diverticulitis Acute toxic or metabolic encephalopathy Alcohol use disorder Alcohol withdrawal Elevated LFTs due to alcohol use disorder Uncontrolled hypertension Bilateral nephrolithiasis Pancreatitis, ruled out Ruled out acute coronary syndrome History of stroke History of CAD with NE Hypercholesteremia Discharge Disposition: Home Discharge Instruct/Medications Diet: Cardiac 2g Na,low cholest Activity: No Restrictions, As Tolerated Follow Up/Referral: Follow up in [place] clinic, PCP in 1 week. Medications: As per EMR Scheduled Amoxicillin & Pot Clavulanate (Augmentin Tablet), 875 MG PO TID Aspirin (Aspir-81), 1 TAB PO DAILY Atorvastatin Calcium (Lipitor), 1 TAB PO QPM Folic Acid (Folic Acid), 1 MG PO DAILY Lisinopril (Lisinopril), 10 MG PO DAILY Pantoprazole Sodium Sesquihydr (Protonix), 40 MG PO DAILY Sucralfate (Carafate Susp), 1 GM PO BID@0600,2200 Thiamine HCl (Thiamine Hydrochloride), 100 MG PO DAILY Scheduled PRN Docusate Sodium (Docusate Sodium), 100 MG PO BID PRN Hydrocodone-Acetaminophen (Hydrocodone Bitartrate/AC 5-325 mg), 1 TAB PO Q4HP PRN Polyethylene Glycol (Miralax), 17 GM PO DAILYPRN PRN Discontinued Medications Amoxicillin & Pot Clavulanate (Augmentin Tablet), 875 MG PO BID Aspirin (Aspirin 81), 81 MG PO DAILY Atorvastatin Calcium (Lipitor), 1 TAB PO QPM Discharge Statement: "Patient was advised to return to the ER or call 911 if any headaches, dizziness, shortness of breath, chest pain, abdominal pain, bleeding, fevers, or worsening of medical condition. Patient was counseled about treatment plan, medications, possible side effects, patientverbalized understanding. All questions were answered to the best of my ability. This discharge took greater then 30 minutes in planning, reviewing documentation, counseling the patient, and discussing with other team members." ASSESSMENT ASSESSMENT Assessment Noncardiac chest pain Date of Service: Jan 04, 2025 Billing Provider: PAIGE JULIEN MD Common Visit Codes: 53825-PLP/OBS DISCH DAY >30min GUSKAYKAY Hernandez Jan 04, 2025 14:03 PAIGE JULIEN MD Jan 05, 2025 18:48
--- NOTE | 2025-01-04 14:33 | DVHPN2 ---
Consult Progress Note Date Seen: Jan 04, 2025 Subjective Review of Systems: CVS:Normal, RESPIRATORY:Normal, NEURO:Normal Other Systems: Denies any cardiac symptoms Objective vital signs Vital Sign Date Time Temp Pulse Resp B/P (MAP) Pulse Ox O2 Delivery O2 Flow Rate FiO2 01/04/25 14:24 135/86 01/04/25 12:56 98.0 82 16 94 98.0 01/04/25 08:00 Room Air* 0 21 Total Intake and Output 01/03/25 01/03/25 01/04/25 15:00 23:00 07:00 Intake Total 530 ml 900 ml 900 ml Balance 530 ml 900 ml 900 ml medications Current Medications Medications Dose Ordered Sig/Maria G Route Start Time Stop Time Status Last Admin Dose Admin Enoxaparin Sodium 40 mg DAILY SC 01/01/25 10:00 01/04/25 11:13 40 MG Ceftriaxone Sodium 50 ml @ 100 mls/hr DAILY@09 IV 01/01/25 09:00 01/04/25 14:24 100 MLS/HR Metronidazole 100 ml @ 100 mls/hr Q8HR IV 01/01/25 14:00 01/04/25 05:24 100 MLS/HR Pantoprazole Sodium 40 mg DAILY IV 01/01/25 10:00 01/04/25 11:03 40 MG Thiamine HCl 100 mg DAILY IV 01/02/25 10:00 01/04/25 11:03 100 MG Tamsulosin HCl 0.4 mg QPM PO 01/01/25 18:00 01/03/25 17:39 0.4 MG Folic Acid 1 mg/ Dextrose 50.2 ml @ 200.8 mls/ hr DAILY INJ 01/01/25 10:00 01/03/25 10:00 200.8 MLS/HR Aspirin 81 mg DAILY PO 01/01/25 10:00 01/04/25 11:13 81 MG Atorvastatin Calcium 40 mg HS PO 01/01/25 22:00 01/03/25 21:27 40 MG Metoprolol Tartrate 25 mg BID PO 01/01/25 22:00 01/04/25 11:11 25 MG Lisinopril 20 mg DAILY PO 01/02/25 10:00 01/04/25 11:10 20 MG Sucralfate 1 gm BID@0600,2200 PO 01/01/25 22:00 01/03/25 21:27 1 GM Lorazepam 1 mg QHSP PRN PO 01/03/25 09:45 01/03/25 22:45 1 MG Ketorolac Tromethamine 15 mg Q6HPRN PRN IV 01/03/25 16:45 01/08/25 16:44 01/03/25 19:37 15 MG Acetaminophen/ Hydrocodone Bitart 1 tab Q6HPRN PRN PO 01/03/25 16:45 01/03/25 17:40 1 TAB Amlodipine Besylate 5 mg DAILY PO 01/04/25 10:00 01/04/25 14:24 5 MG Examination: LUNGS:Normal, CVS:Normal, NEURO:Normal laboratory and microbiology Laboratory Tests 01/04/25 05:50 Test 01/04/25 05:50 Range/Units Serum Glucose 91 74-106 mg/dL Problem List/Assessment/Plan Problem List/Assessment/Plan Chest pain rule out coronary artery disease History of CVAs x2 Hypertension Dyslipidemia Recent alcohol dependence Obesity Plan/Recommendation (Dr. Welch) A recent transthoracic echocardiogram revealed an LVEF of 60% with normal RV function. Cardiolite stress test, negative for coronary ischemia. There is no further cardiac work-up indicated at this time. Kindly call with any questions or concerns. Signing off. Thank you for allowing us to participate in this patient's care. Please call if you have any questions or concerns. This medical document was created using an electronic medical record system with voice recognition software and computerized dictation system. Although this document has been carefully reviewed, there might still be some phonetic and typographical errors. Occasional wrong-word or ``sound-alike substitutions may have occurred due to the inherent limitations of voice recognition software. These areas are purely typographical due to imperfections of the software programs and do not reflect any compromise in the patient's medical care. Please read the chart carefully and recognize, using context, where these substitutions have occurred. Plan discussed with: Patient, Other Dietary Evaluation Review Recommendations by RD: Dietary education by RD Comments: 1) Add cardiac restriction to mechanical soft diet 2) Encourage optimal PO intake 3) Refer to outpatient RD for weight management 4) Follow-up with gastroenterology, cardiology, and urology 5) Follow-up with social sciences instructor r/t ETOH abuse 6) Continue to monitor I&O, labs, and skin integrity Expected Outcomes/Goals: 1) appetite and labs to improve 2) gradual wt loss 3) f/u in 3-5 days Date of Service: Jan 04, 2025 Billing Provider: MAXIMINO VALENZUELA Cardiology Common Codes: 09700-COBUPNVYVM HOSP CARE(High MAXIMINO VALENZUELA Jan 04, 2025 14:33
[2025-01-04] MEDS ORDERED: ATOR-507 PO (14:53)
[2025-01-04] MEDS ORDERED: DOCU-265 PO (14:53)
[2025-01-04] MEDS ORDERED: AUG875T PO (14:53)
[2025-01-04] MEDS ORDERED: SUCR1SUS26 PO (14:53)
[2025-01-04] MEDS ORDERED: POLY33505 PO (14:53)
[2025-01-04] MEDS ORDERED: ASPI1TAB20 PO (14:53)
[2025-01-04] MEDS ORDERED: LISI20TA56 PO (14:53)
[2025-01-04 15:32] VITALS: BP 135/86; PULSE 74; RESP 18; TEMP 36.7; O2SAT 95
[2025-01-04] MEDS ORDERED: PANT40TA2 PO (22:42)
[2025-01-04] MEDS ORDERED: NIFE1TAB31 PO (22:42)
[2025-01-05] MEDS ORDERED: LISI-275 PO (17:14)
== END 2025-01-04 17:10 | disposition home or self-care (01) | DRG 244 ==
LOC: ER 01:47 → EDBD 01:47 → OVERFLOW 06:32 → TELE-EAST 10:11
PROVIDERS: ADMIT Internal Medicine Geriatric Medicine; ATTEND Internal Medicine Geriatric Medicine
DX: K57.32 Diverticulitis of large intestine without perforation or abscess without bleeding (principal); G92.8 Other toxic encephalopathy; M94.0 Chondrocostal junction syndrome [Tietze]; I25.10 Atherosclerotic heart disease of native coronary artery without angina pectoris; I10 Essential (primary) hypertension; I25.2 Old myocardial infarction; N20.0 Calculus of kidney; E78.5 Hyperlipidemia, unspecified; E66.9 Obesity, unspecified; K29.70 Gastritis, unspecified, without bleeding; E78.00 Pure hypercholesterolemia, unspecified; K82.8 Other specified diseases of gallbladder; Y90.9 Presence of alcohol in blood, level not specified; I45.10 Unspecified right bundle-branch block; F10.139 Alcohol abuse with withdrawal, unspecified; Z82.49 Family history of ischemic heart disease and other diseases of the circulatory system; Z86.73 Personal history of transient ischemic attack (TIA), and cerebral infarction without residual deficits; Z68.28 Body mass index [BMI] 28.0-28.9, adult; Z79.82 Long term (current) use of aspirin; Z79.899 Other long term (current) drug therapy; Z71.41 Alcohol abuse counseling and surveillance of alcoholic; K80.20 Calculus of gallbladder without cholecystitis without obstruction
CPT/HCPCS: 36415; 70450; 71045; 71250; 74176; 76705; 78452; 80048; 80053; 80061; 80307; 80320; 81001; 82247; 82306; 82607; 82746; 83036; 83605; 83690; 83735; 83880; 84075; 84100; 84443; 84450; 84460; 84484; 85025; 85610; 85730; 87040; 93017; 96365; 96375; 99291; G0378; J1885; J1956; J2470; J3490; J7060